=== PATIENT | female | born 1970 | race African-American/Black ===

== ENCOUNTER 2020-12-07 09:46 | Emergency (ER) | payer OTHER ==
--- OUTSIDE RECORDS SUMMARY | 2020-12-07 09:48 | XMS REPORT | Continuity of Care Document ---
:1970 Author Organization [facility] t Address [address] [place] [address] Care Team Providers Name Role Phone Unavailable Unavailable Unavailable Problems This patient has no known problems. Allergies, Adverse Reactions, Alerts This patient has no known allergies or adverse reactions. Medications Ordered Filled Start Stop Current Ordering Indication Dosage Frequency Signature Comments Components Source Medication Medication Date Date Medication? Clinician (SIG) Name Name Trazodone Trazodone 2019-0 Yes Na Cruz [address] [facility] HCl HCl 9-10 at [facility]time [facility] Citalopram Citalopram 2019-0 Yes Na Cruz [address] [facility] Hydrobromid Hydrobromid 8-17 [facility] - [facility] 00[facility]: [facility] Pantoprazol Pantoprazol 2019-0 Yes Na Cruz [address] [facility] e Sodium e Sodium 8-17 [facility] Lisinopril Lisinopril Yes Na Cruz [address] [facility] Omeprazole Omeprazole Yes Na Cruz [address] [facility] 30 minutes [facility] - before [facility] morning [facility] meal [facility] Procedures This patient has no known procedures. Encounters Start End Encounter Admission Attending Care Care Encounter Source Date/Time Date/Time Type Type Clinicians Facility Department ID 2020-07-02 2020-07-02 Outpatient [facility] [id number] [facility] 2020-06-23 2020-06-23 [facility] [id number] [facility] 2020-04-23 2020-04-23 Outpatient Rachelle Acevedo [id number] [facility] 13:40:00 13:40:[address] [facility] [place] [place] [facility] 2020-03-30 2020-03-30 Outpatient Rachelle Aceveod [id number] [facility] 11:20:00 11:20:00 [employer] [facility] Clin[facility] Results This patient has no known results.
[2020-12-07] MEDS ORDERED: MORPHINE 4 MG/ML SYR ONE ×2 (10:19→11:18)
[2020-12-07] MEDS ORDERED: ONDANSETRON 4 MG/2 ML VIAL ONE (10:19)
[2020-12-07] MEDS ORDERED: NA CHLORIDE 0.9% 1,000 ML ONE (10:19)
[2020-12-07] MEDS ORDERED: PANTOPRAZOLE 40 MG INJ ONE (10:19)
[2020-12-07 10:20] LABS: Absolute Lymphocytes (CBC) 0.8 K/uL (0.7-4.9); Basophils % 0.3 % (0-1.3); Hematocrit 39.1 % (36.0-45.0); Lymphocytes % 8.9 % (15.3-44.8); MPV 7.2 fL (7.6-11.3); RBC Red Blood Cell Count 4.71 M/uL (3.86-4.86)
--- NOTE | 2020-12-07 10:37 | RAD REPORT ---
EXAM DESCRIPTION: CTAbdomen Pelvis W Contrast - 12/07/2020 10:27 am CLINICAL HISTORY: Abdominal pain. ABD PAIN COMPARISON: CT ABD PELVIS W CONTRAST dated 12/24/2014 TECHNIQUE: Biphasic CT imaging of the abdomen and pelvis was performed with 100 ml non-ionic IV cont rast. All CT scans are performed using dose optimization technique as appropriate and may include automated exposure control or mA/KV adjustment according to patient size. FINDINGS: The lung bases are clear. The liver, spleen, pancreas, adrenal glands and kidneys are within normal limits. No bowel obstruction, free air, free fluid or abscess. The appendix is not identified as a discrete structure, however, no secondary findings of appendicitis are identified. No evidence of significan t lymphadenopathy. No suspicious bony findings. IMPRESSION: No acute intra-abdominal or pelvic finding.
[2020-12-07 10:38] LABS: Blood Morphology Comment NOT SEEN (NOT SEEN); Platelet Estimate ADEQ
[2020-12-07 10:48] LABS: ALT/SGPT 20 U/L (12-78); AST/SGOT 23 U/L (15-37); Albumin 4.8 g/dL (3.4-5.0); Alkaline Phosphatase 85 U/L (45-117); BUN Blood Urea Nitrogen 16 mg/dL (7-18); Bicarbonate 24 mmol/L (21-32); Bilirubin Direct 0.4 mg/dL (0-0.2); Bilirubin Total 1.8 mg/dL (0.2-1.0); Glucose Level 116 mg/dL (74-106); Lipase 45 U/L (73-393); Potassium 3.1 mmol/L (3.5-5.1); Protein, Total 9.3 g/dL (6.4-8.2); Sodium Level 138 mmol/L (136-145)
[2020-12-07] MEDS ORDERED: PROMETHAZINE INJ 25 MG/ML AMP ONE (11:18)
--- NOTE | 2020-12-07 12:36 | EDPHYS ---
Physician Documentation [facility] Name: Marya Dodson Age: 50 yrs Sex: Female : 1970 Arrival Date: 12/07/2020 Time: 09:47 Bed 20 Private MD: ED Physician Rodo Cornejo HPI: 12/07 10:51 This 50 yrs old Black Female presents to ER via EMS with complaints of Abdominal Pain, gerrad Nausea/Vomiting. 10:51 The patient presents to the emergency department with nausea, vomiting, abdominal pain, gerard of the right lower quadrant and left lower quadrant. Onset: The symptoms/episode began/occurred 2 day(s) ago. Possible causes: flare up of bowel problem. The symptoms are aggravated by nothing. Associated signs and symptoms: The patient has no apparent associated signs or symptoms. Severity of symptoms: At their worst the symptoms were mild moderate in the emergency department the symptoms are unchanged. The patient has experienced similar episodes in the past, multiple times. Historical: - Allergies: 09:51 No Known Allergies; bp - Home Meds: 09:51 Lisinopril Oral [Active]; pantoprazole oral oral [Active]; bp - PMHx: 09:51 Hypertension; GERD; bp - Immunization history:: Adult Immunizations up to date. - Social history:: Smoking status: unknown. ROS: 10:52 Constitutional: Negative for fever, chills, and weight loss, Eyes: Negative for injury, gerard pain, redness, and discharge, ENT: Negative for injury, pain, and discharge, Neck: Negative for injury, pain, and swelling, Cardiovascular: Negative for chest pain, palpitations, and edema, Respiratory: Negative for shortness of breath, cough, wheezing, and pleuritic chest pain, Back: Negative for injury and pain, : Negative for injury, bleeding, discharge, and swelling, MS/Extremity: Negative for injury and deformity, Skin: Negative for injury, rash, and discoloration, Neuro: Negative for headache, weakness, numbness, tingling, and seizure, Psych: Negative for depression, anxiety, suicide ideation, homicidal ideation, and hallucinations, Allergy/Immunology: Negative for hives, rash, and allergies, Endocrine: Negative for neck swelling, polydipsia, polyuria, polyphagia, and marked weight changes, Hematologic/Lymphatic: Negative for swollen nodes, abnormal bleeding, and unusual bruising. 10:52 Abdomen/GI: Positive for abdominal pain, nausea and vomiting, abdominal cramps, abdominal distension, of the right lower quadrant and left lower quadrant. Exam: 10:52 Constitutional: This is a well developed, well nourished patient who is awake, alert, gerard and in no acute distress. Head/Face: Normocephalic, atraumatic. Eyes: Pupils equal round and reactive to light, extra-ocular motions intact. Lids and lashes normal. Conjunctiva and sclera are non-icteric and not injected. Cornea within normal limits. Periorbital areas with no swelling, redness, or edema. ENT: Nares patent. No nasal discharge, no septal abnormalities noted. Tympanic membranes are normal and external auditory canals are clear. Oropharynx with no redness, swelling, or masses, exudates, or evidence of obstruction, uvula midline. Mucous membranes moist. Neck: Trachea midline, no thyromegaly or masses palpated, and no cervical lymphadenopathy. Supple, full range of motion without nuchal rigidity, or vertebral point tenderness. No Meningismus. Chest/axilla: Normal chest wall appearance and motion. Nontender with no deformity. No lesions are appreciated. Cardiovascular: Regular rate and rhythm with a normal S1 and S2. No gallops, murmurs, or rubs. Normal PMI, no JVD. No pulse deficits. Respiratory: Lungs have equal breath sounds bilaterally, clear to auscultation and percussion. No rales, rhonchi or wheezes noted. No increased work of breathing, no retractions or nasal flaring. Back: No spinal tenderness. No costovertebral tenderness. Full range of motion. Female : Normal external genitalia. Skin: Warm, dry with normal turgor. Normal color with no rashes, no lesions, and no evidence of cellulitis. MS/ Extremity: Pulses equal, no cyanosis. Neurovascular intact. Full, normal range of motion. Neuro: Awake and alert, GCS 15, oriented to person, place, time, and situation. Cranial nerves II-XII grossly intact. Motor strength 5/5 in all extremities. Sensory grossly intact. Cerebellar exam normal. Normal gait. 10:52 Abdomen/GI: Inspection: abdomen appears normal, Bowel sounds: normal, Palpation: mild abdominal tenderness, moderate abdominal tenderness, in the right lower quadrant and left lower quadrant, Liver: no appreciated palpable abnormalities, Hernia: not appreciated. Vital Signs: 09:48 BP 161 / 88; Pulse 71; Resp 17; Temp 98; Pulse Ox 100% ; bp 11:00 BP 96 / 72; Pulse 79; Resp 19; Pulse Ox 97% ; bp 12:30 BP 110 / 70; Pulse 72; Resp 16; Temp 98; Pulse Ox 97% ; bp MDM: 09:48 Patient medically screened. gerard 10:55 Differential diagnosis: Nonspecific abd pain, gastritis, cholecystitis, pancreatitis, gerard appendicitis, diverticulitis, viral gastroenteritis, gastroenteritis, appendicitis, bowel obstruction, diverticulitis. Data reviewed: vital signs, nurses notes. Data interpreted: monitor and storage bin tender: rate is 71 beats/min, rhythm is regular, Pulse oximetry: on room air is 100 %. Test interpretation: by ED physician or midlevel provider: plain radiologic studies. Counseling: I had a detailed discussion with the patient and/or guardian regarding: the historical points, exam findings, and any diagnostic results supporting the discharge/admit diagnosis, lab results, radiology results. 12/07 09:52 Order name: Basic Metabolic Panel; Complete Time: 11:46 12/07 09:52 Order name: CBC with Diff; Complete Time: 10:49 12/07 09:52 Order name: Hepatic Function; Complete Time: 11:46 12/07 09:52 Order name: Lipase; Complete Time: 11:46 12/07 10:38 Order name: Manual Differential; Complete Time: 10:49 [facility] 12/07 11:51 Order name: Urine Culture [facility] 12/07 10:02 Order name: CT Abd/Pelvis - IV Contrast Only; Complete Time: 10:38 12/07 12:39 Order name: Urine Dipstick-Ancillary [facility] 12/07 09:52 Order name: IV Saline Lock; Complete Time: 10:15 12/07 09:52 Order name: Labs collected and sent; Complete Time: 10:15 12/07 11:50 Order name: Urine Dipstick-Ancillary (obtain specimen); Complete Time: 12:34 [facility] 12/07 12:03 Order name: Misc. Order: please get ua; Complete Time: 12:34 [facility] Administered Medications: 10:10 Drug: morphine 4 mg Route: IVP; Site: right antecubital; bp 11:05 Follow up: Response: Pain is decreased bp 10:10 Drug: Zofran (Ondansetron) 4 mg Route: IVP; Site: right antecubital; bp 11:05 Follow up: Response: Nausea is decreased bp 10:10 Drug: NS 0.9% 1000 ml Route: IV; Rate: 1 bolus; Site: right antecubital; bp 10:10 Drug: ProTONIX (pantoprazole) 40 mg Route: IVP; Site: right antecubital; bp 11:05 Follow up: Response: No adverse reaction bp 10:50 Drug: morphine 4 mg Route: IVP; Site: right antecubital; bp 11:57 Follow up: Response: Pain is decreased bp 10:50 Drug: Phenergan (promethazine) 12.5 mg Route: IVP; Site: right antecubital; bp 11:57 Follow up: Response: Nausea is decreased bp 10:59 CANCELLED (Duplicate Order): Zofran (Ondansetron) 4 mg IVP once; over 2 minutes gerard 12:05 Drug: Potassium Effervescent Tablet 25 mEq Route: PO; bp 12:34 Follow up: Response: No adverse reaction bp Disposition: 12/07/20 12:36 Discharged to Home. Impression: Abdominal tenderness, Gastritis, unspecified, Vomiting, unspecified, Gastro-esophageal reflux disease, Hypokalemia. - Condition is Stable. - Discharge Instructions: Abdominal Pain, Adult, Potassium Content of Foods, Gastritis, Adult, Gastroesophageal Reflux Disease, Adult, Nausea and Vomiting, Adult, Gastritis, Adult, Arns-jo-Rgrl, Nausea and Vomiting, Adult, Nuan-pe-Pody, Abdominal Pain, Adult, Nlbs-kc-Dxsf, Hypokalemia. - Prescriptions for Bentyl 20 mg Oral Tablet - take 2 tablet by ORAL route every 6 hours As needed; 40 tablet. Protonix 40 mg Oral Tablet, Delayed Release (E.C.) - take 1 tablet by ORAL route every 12 hours; 40 tablet. Zofran 4 mg Oral Tablet - take 1 tablet by ORAL route every 12 hours As needed; 30 tablet. Phenergan 25 mg Rectal Suppository - insert 1 suppository by RECTAL route every 6 hours As needed; 15 suppository. - Medication Reconciliation Form, Thank You Letter, Antibiotic Education, Prescription Opioid Use form. - Follow up: Private Physician; When: 2 - 3 days; Reason: Recheck today's complaints, Continuance of care, Re-evaluation by your physician. Follow up: Cheryl Cruz; When: 2 - 3 days; Reason: Recheck today's complaints, Continuance of care, Re-evaluation by your physician. Follow up: Min Prieto MD; When: 2 - 3 days; Reason: Recheck today's complaints, Continuance of care, Re-evaluation by your physician. - Problem is new. - Symptoms have improved. Signatures: Dispatcher [employer] EDRodo Jacobsen MD MD cha Peltier, Brian RN RN bp Corrections: (The following items were deleted from the chart) 10:59 10:51 Zofran (Ondansetron) 4 mg IVP once; over 2 minutes ordered. gerard gee 12:36 12:36 12/07/2020 12:36 Discharged to Home. Impression: Abdominal tenderness; Gastritis, gerard unspecified; Vomiting, unspecified; Gastro-esophageal reflux disease; Hypokalemia. Condition is Stable. Discharge Instructions: Abdominal Pain, Adult, Gastritis, Adult, Gastroesophageal Reflux Disease, Adult, Nausea and Vomiting, Adult, Gastritis, Adult, Zoeq-ru-Vmzi, Nausea and Vomiting, Adult, Rcxu-ot-Rlnu, Abdominal Pain, Adult, Oyym-ma-Zypi, Potassium Content of Foods, Hypokalemia. Prescriptions for Bentyl 20 mg Oral Tablet - take 2 tablet by ORAL route every 6 hours As needed; 40 tablet, Protonix 40 mg Oral Tablet, Delayed Release (E.C.) - take 1 tablet by ORAL route every 12 hours; 40 tablet, Zofran 4 mg Oral Tablet - take 1 tablet by ORAL route every 12 hours As needed; 30 tablet, Phenergan 25 mg Rectal Suppository - insert 1 suppository by RECTAL route every 6 hours As needed; 15 suppository. and Forms are Medication Reconciliation Form, Thank You Letter, Antibiotic Education, Prescription Opioid Use. Follow up: Private Physician; When: 2 - 3 days; Reason: Recheck today's complaints, Continuance of care, Re-evaluation by your physician. Follow up: Cheryl Cruz; When: 2 - 3 days; Reason: Recheck today's complaints, Continuance of care, Re-evaluation by your physician. Problem is new. Symptoms have improved. gerard 12:45 12:36 12/07/2020 12:36 Discharged to Home. Impression: Abdominal tenderness; Gastritis, bp unspecified; Vomiting, unspecified; Gastro-esophageal reflux disease; Hypokalemia. Condition is Stable. Discharge Instructions: Abdominal Pain, Adult, Gastritis, Adult, Gastroesophageal Reflux Disease, Adult, Nausea and Vomiting, Adult, Gastritis, Adult, Plrn-ow-Tihi, Nausea and Vomiting, Adult, Srod-tx-Sxzp, Abdominal Pain, Adult, Rnqa-gw-Bele, Potassium Content of Foods, Hypokalemia. Prescriptions for Bentyl 20 mg Oral Tablet - take 2 tablet by ORAL route every 6 hours As needed; 40 tablet, Protonix 40 mg Oral Tablet, Delayed Release (E.C.) - take 1 tablet by ORAL route every 12 hours; 40 tablet, Zofran 4 mg Oral Tablet - take 1 tablet by ORAL route every 12 hours As needed; 30 tablet, Phenergan 25 mg Rectal Suppository - insert 1 suppository by RECTAL route every 6 hours As needed; 15 suppository. and Forms are Medication Reconciliation Form, Thank You Letter, Antibiotic Education, Prescription Opioid Use. Follow up: Private Physician; When: 2 - 3 days; Reason: Recheck today's complaints, Continuance of care, Re-evaluation by your physician. Follow up: Cheryl Cruz; When: 2 - 3 days; Reason: Recheck today's complaints, Continuance of care, Re-evaluation by your physician. Follow up: Min Prieto; When: 2 - 3 days; Reason: Recheck today's complaints, Continuance of care, Re-evaluation by your physician. Problem is new. Symptoms have improved. gerard
--- NOTE | 2020-12-07 12:36 | ER ---
Nurse's Notes [facility] Name: Marya Dodson Age: 50 yrs Sex: Female : 1970 Arrival Date: 12/07/2020 Time: 09:47 Bed 20 Private MD: Diagnosis: Abdominal tenderness;Gastritis, unspecified;Vomiting, unspecified;Gastro-esophageal reflux disease;Hypokalemia Presentation: 12/07 09:48 Chief complaint: EMS states: ABDOMINAL PAIN WITH N/V SINCE LAST PM. Coronavirus screen: bp At this time, the client does not indicate any symptoms associated with coronavirus-19. Ebola Screen: No symptoms or risks identified at this time. Initial Sepsis Screen: Does the patient meet any 2 criteria? No. Patient's initial sepsis screen is negative. Does the patient have a suspected source of infection? No. Patient's initial sepsis screen is negative. Risk Assessment: Do you want to hurt yourself or someone else? Patient reports no desire to harm self or others. Onset of symptoms is unknown. 09:48 Method Of Arrival: EMS: [facility] bp 09:48 Acuity: FELI 3 bp Triage Assessment: 09:48 General: Appears distressed, uncomfortable, Behavior is cooperative, appropriate for bp age, anxious. Pain: Complains of pain in abdomen. EENT: No deficits noted. Neuro: No deficits noted. Cardiovascular: No deficits noted. Respiratory: No deficits noted. GI: Abdomen is non-distended, obese, Reports lower abdominal pain, cramping. : No signs and/or symptoms were reported regarding the genitourinary system. Derm: No deficits noted. Musculoskeletal: No deficits noted. Historical: - Allergies: 09:51 No Known Allergies; bp - Home Meds: 09:51 Lisinopril Oral [Active]; pantoprazole oral oral [Active]; bp - PMHx: 09:51 Hypertension; GERD; bp - Immunization history:: Adult Immunizations up to date. - Social history:: Smoking status: unknown. Screenin:00 Abuse screen: Denies threats or abuse. Denies injuries from another. Nutritional bp screening: No deficits noted. Tuberculosis screening: No symptoms or risk factors identified. Fall Risk None identified. Assessment: 10:00 General: SEE TRIAGE NOTE. bp 11:00 Reassessment: No changes from previously documented assessment. Patient and/or family bp updated on plan of care and expected duration. Pain level reassessed. PT RETURNED FROM CT. ALL CURRENT RESULTS UNREMARKABLE. 12:44 Reassessment: PT D/C HOME VIA W/C WITH FAMILY, DX WITH GASTRITIS AND GERD. bp Vital Signs: 09:48 BP 161 / 88; Pulse 71; Resp 17; Temp 98; Pulse Ox 100% ; bp 11:00 BP 96 / 72; Pulse 79; Resp 19; Pulse Ox 97% ; bp 12:30 BP 110 / 70; Pulse 72; Resp 16; Temp 98; Pulse Ox 97% ; bp ED Course: 09:47 Patient arrived in ED. bp 09:48 Rodo Cornejo MD is Attending Physician. gerard 09:48 Triage completed. bp 09:51 Splint/sling/ice applied as appropriate. Arm band placed on Patient notified of wait bp time. 09:57 Patient has correct armband on for positive identification. Bed in low position. Call mh5 light in reach. Side rails up X2. Adult w/ patient. Pulse ox on. NIBP on. 09:58 Warm blanket given. mh5 10:01 Kayden Mondragon, RN is Primary Nurse. bp 10:01 PATIENT REFUSED IV ANYWHERE SHE WANTS IT ON HER HAND. mh5 10:10 Inserted saline lock: 20 gauge in right antecubital area, using aseptic technique. bp Blood collected. 10:27 CT Abd/Pelvis - IV Contrast Only In Process Unspecified. EDMS 12:36 Cheryl Cruz MD is Referral Physician. gerard 12:36 Min Prieto MD is Referral Physician. [facility] 12:45 No provider procedures requiring assistance completed. IV discontinued, intact, bp bleeding controlled, No redness/swelling at site. Pressure dressing applied. Administered Medications: 10:10 Drug: morphine 4 mg Route: IVP; Site: right antecubital; bp 11:05 Follow up: Response: Pain is decreased bp 10:10 Drug: Zofran (Ondansetron) 4 mg Route: IVP; Site: right antecubital; bp 11:05 Follow up: Response: Nausea is decreased bp 10:10 Drug: NS 0.9% 1000 ml Route: IV; Rate: 1 bolus; Site: right antecubital; bp 10:10 Drug: ProTONIX (pantoprazole) 40 mg Route: IVP; Site: right antecubital; bp 11:05 Follow up: Response: No adverse reaction bp 10:50 Drug: morphine 4 mg Route: IVP; Site: right antecubital; bp 11:57 Follow up: Response: Pain is decreased bp 10:50 Drug: Phenergan (promethazine) 12.5 mg Route: IVP; Site: right antecubital; bp 11:57 Follow up: Response: Nausea is decreased bp 10:59 CANCELLED (Duplicate Order): Zofran (Ondansetron) 4 mg IVP once; over 2 minutes gerard 12:05 Drug: Potassium Effervescent Tablet 25 mEq Route: PO; bp 12:34 Follow up: Response: No adverse reaction bp Outcome: 12:36 Discharge ordered by MD. gee 12:45 Discharged to home via wheelchair, with family. bp 12:45 Condition: stable 12:45 Discharge instructions given to patient, Instructed on discharge instructions, follow up and referral plans. medication usage, Demonstrated understanding of instructions, follow-up care, medications, Prescriptions given X 4. 12:45 Patient left the ED. bp Signatures: Dispatcher [employer] EDRodo Jacobsen MD MD cha Martinez, Maria [facility] Kayden Mondragon, RN RN bp
[2020-12-07 12:39] LABS: Urine Blood 2+ (Negative); Urine Glucose Negative (Negative); Urine Protein 2+ (Negative)
[2020-12-07] MEDS ORDERED: POTASSIUM 25 MEQ EFFERV TAB ONE (12:42)
[2020-12-07 12:53] VITALS: TEMP 98
[2020-12-07 12:54] VITALS: O2SAT 97
[2020-12-07 12:56] VITALS: BP 110/70
== END 2020-12-07 12:45 | disposition home or self-care (01) ==
LOC: ER 09:46
DX: K29.70 Gastritis, unspecified, without bleeding (principal); K21.9 Gastro-esophageal reflux disease without esophagitis; E87.6 Hypokalemia; R11.10 Vomiting, unspecified; I10 Essential (primary) hypertension
CPT/HCPCS: 87088; 85025; 87086; 80048; 36415; 82565; 80076; 81003; 83690; 74177; 96375; 96374; 99284; Q9967; J2550; C9113; J7030; J2405

== ENCOUNTER 2021-03-27 15:57 | Emergency (ER) | payer OTHER ==
--- OUTSIDE RECORDS SUMMARY | 2021-03-27 15:59 | XMS REPORT | Continuity of Care Document ---
:1970 Author Organization [facility] t Address [address] [place] [address] Care Team Providers Name Role Phone Unavailable Unavailable Unavailable Problems This patient has no known problems. Allergies, Adverse Reactions, Alerts This patient has no known allergies or adverse reactions. Medications Ordered Filled Start Stop Current Ordering Indication Dosage Frequency Signature Comments Components Source Medication Medication Date Date Medication? Clinician (SIG) Name Name Trazodone Trazodone 2020-0 Yes Na Cruz [address] [facility] HCl HCl 9-10 at [facility]time [facility] Citalopram Citalopram 2020-0 Yes Na Cruz [address] [facility] Hydrobromid Hydrobromid 8-17 [facility] - e e 00:00: [facility] Pantoprazol Pantoprazol 2020-0 Yes Na Cruz [address] [facility] e Sodium e Sodium 8-17 [facility] Lisinopril Lisinopril Yes Na Cruz [address] [facility] Omeprazole Omeprazole Yes Na Cruz [address] [facility] 30 minutes [facility] morning [facility] meal [facility] Procedures This patient has no known procedures. Encounters Start End Encounter Admission Attending Care Care Encounter Source Date/Time Date/Time Type Type Clinicians Facility Department ID 2020-12-16 2020-12-16 Outpatient [facility] [id number] [facility] 2020-12-11 2020-12-11 [facility] [id number] [facility] 2020-07-02 2020-07-02 Out[facility] [id number] [facility] 2020-06-23 2020-06-[address] [id number] 2020-04-23 2020-04-23 [facility] [id number] 13:40:00 13:40:00 [facility] 2020-03-30 2020-03-30 [facility] [id number] 11:20:00 11:20:00 [facility] Results This patient has no known results.
[2021-03-27 17:05] LABS: Absolute Lymphocytes (CBC) 0.9 K/uL (0.7-4.9); Basophils % 0.3 % (0-1.3); Hematocrit 35.9 % (36.0-45.0); Lymphocytes % 8.9 % (15.3-44.8); MPV 7.2 fL (7.6-11.3); RBC Red Blood Cell Count 4.26 M/uL (3.86-4.86)
[2021-03-27] MEDS ORDERED: ONDANSETRON 4 MG/2 ML VIAL ONE (17:07)
[2021-03-27] MEDS ORDERED: MORPHINE 4 MG/ML SYR ONE (17:07)
[2021-03-27] MEDS ORDERED: NA CHLORIDE 0.9% 1,000 ML ONE (17:07)
[2021-03-27 17:43] LABS: ALT/SGPT 17 U/L (12-78); AST/SGOT 22 U/L (15-37); Albumin 4.2 g/dL (3.4-5.0); Alkaline Phosphatase 73 U/L (45-117); BUN Blood Urea Nitrogen 9 mg/dL (7-18); Bicarbonate 23 mmol/L (21-32); Bilirubin Direct 0.2 mg/dL (0-0.2); Bilirubin Total 0.8 mg/dL (0.2-1.0); Glucose Level 119 mg/dL (74-106); Lipase 26 U/L (73-393); Protein, Total 7.7 g/dL (6.4-8.2); Sodium Level 142 mmol/L (136-145)
[2021-03-27 17:43] LABS: Urine Blood 1+ (Negative); Urine Glucose Negative (Negative); Urine Protein 1+ (Negative); Urine pH 8.5 (5.0-7.0)
[2021-03-27 18:17] LABS: Blood Morphology Comment NOT SEEN (NOT SEEN); Platelet Estimate ADEQ; White Blood Cell Scan OK (OK)
[2021-03-27] MEDS ORDERED: FENTANYL CITR 100 MCG/2 ML ONE (18:29)
--- NOTE | 2021-03-27 18:37 | RAD REPORT ---
EXAM DESCRIPTION: CT - Abdomen Pelvis W Contrast - 03/27/2021 6:18 pm CLINICAL HISTORY: ABD PAIN, epigastric pain with a history of GERD COMPARISON: Abdomen Pelvis W Contrast dated 12/07/2020 TECHNIQUE: Biphasic, helical CT imaging of the abdomen and pelvis was performed following 100 ml non -ionic IV contrast. No oral contrast was administered. All CT scans are performed using dose optimization technique as appropriate and may include automated exposure control or mA/KV adjustment according to patient size. FINDINGS: No acute lung base pleural or parenchymal process. No pericardial effusion. The liver, spleen, and pancreas show no suspicious findings. Gallbladder and biliary tree are also wi thout suspicious finding. Symmetric renal function is seen with no hydronephrosis or suspicious renal mass. No pyelonephritis o r acute parenchymal process. Urinary bladder is mostly contracted. No bladder stone or gross bladder abnormality seen. Uterus is not identified and presumed surgically absent. Ovaries may be surgically absent or obscured by adjacent on opacified bowel. No [employer] active process suspected. No adrenal abnorm alities. Patient has an elevated left hemidiaphragm with most of the stomach positioned within this elevated p ortion of the abdominal contents. This distorts the contour the stomach. No gross gastric abnormality seen. Antritis is not excluded. The gastric mass is not identifiable. No duodenal abnormality. Remai nder of the small bowel without acute finding. Colon is decompressed. No appendicitis findings identi fiable. An acute colon process is not seen. Numerous phleboliths are seen on the or the pelvis. No fr ee air, free fluid or inflammatory stranding. No hernia, mass or bulky lymphadenopathy. No suspicious bony findings. IMPRESSION: Contrast enhanced CT abdomen and pelvis showing no acute or emergent finding. Mild gastritis or duodenitis cannot be excluded solely on the basis of the examination.
--- NOTE | 2021-03-27 18:55 | EDPHYS ---
Physician Documentation [facility] Name: Marya Dodson Age: 50 yrs Sex: Female : 1970 Arrival Date: 03/27/2021 Time: 16:19 Bed Treatment Private MD: ED Physician Christian Mann HPI: 03/27 16:58 This 50 yrs old Black Female presents to ER via EMS with complaints of ab pain. tw4 16:58 The patient presents with abdominal pain. Onset: The symptoms/episode began/occurred 2 tw4 day(s) ago. The symptoms do not radiate. Associated signs and symptoms: Pertinent positives: nausea, vomiting, and diarrhea, nausea and vomiting, nausea, vomiting, Pertinent negatives: anorexia, blood in stools, chest pain, constipation, diarrhea, dysuria, fever, palpitations, shortness of breath, vaginal discharge, vomiting blood. The symptoms are described as sharp. Modifying factors: The symptoms are alleviated by nothing, the symptoms are aggravated by movement, pressure. Severity of pain: At its worst the pain was severe in the emergency department the pain is unchanged. The patient has experienced similar episodes in the past, a few times. Historical: - Allergies: 16:29 No Known Allergies; ss - PMHx: 16:29 GERD; Hypertension; ss - Immunization history:: Adult Immunizations up to date, Client reports receiving the 2nd dose of the Covid vaccine. - Social history:: Smoking status: Patient denies any tobacco usage or history of. ROS: 16:58 Constitutional: Negative for fever, chills, and weight loss, Eyes: Negative for injury, tw4 pain, redness, and discharge, Cardiovascular: Negative for chest pain, palpitations, and edema, Respiratory: Negative for shortness of breath, cough, wheezing, and pleuritic chest pain, Back: Negative for injury and pain. 16:58 MS/Extremity: Negative for injury and deformity, Skin: Negative for injury, rash, and discoloration, Neuro: Negative for headache, weakness, numbness, tingling, and seizure. 16:58 Abdomen/GI: Positive for abdominal pain, Negative for nausea and vomiting, nausea, vomiting, and diarrhea, nausea, abdominal cramps, abdominal distension, anorexia, dysphagia, hematemesis, black/tarry stool, rectal pain. Exam: 17:06 Head/Face: Normocephalic, atraumatic. Eyes: Pupils equal round and reactive to light, tw4 extra-ocular motions intact. Lids and lashes normal. Conjunctiva and sclera are non-icteric and not injected. Cornea within normal limits. Periorbital areas with no swelling, redness, or edema. ENT: Nares patent. No nasal discharge, no septal abnormalities noted. Tympanic membranes are normal and external auditory canals are clear. Oropharynx with no redness, swelling, or masses, exudates, or evidence of obstruction, uvula midline. Mucous membranes moist. Chest/axilla: Normal chest wall appearance and motion. Nontender with no deformity. No lesions are appreciated. Cardiovascular: Regular rate and rhythm with a normal S1 and S2. No gallops, murmurs, or rubs. Normal PMI, no JVD. No pulse deficits. Respiratory: Lungs have equal breath sounds bilaterally, clear to auscultation and percussion. No rales, rhonchi or wheezes noted. No increased work of breathing, no retractions or nasal flaring. 17:06 Constitutional: The patient appears alert, awake, anxious, in obvious distress, moderately distressed, in obvious pain, restless, uncomfortable. 17:06 Abdomen/GI: Inspection: abdomen appears normal, Bowel sounds: diminished, Palpation: severe abdominal tenderness, in all quadrants, voluntary guarding, is elicited in all quadrants. Vital Signs: 16:29 Resp 23; Weight 63.5 kg; Height 5 ft. 6 in. (167.64 cm); Pain 10/10; ss 16:35 BP 160 / 62; Pulse 62; Resp 24; Pulse Ox 96% on R/A; dh4 16:49 Temp 97.6(TE); ss 16:29 Body Mass Index 22.60 (63.50 kg, 167.64 cm) ss MDM: 16:29 Patient medically screened. tw4 16:58 Data reviewed: vital signs, nurses notes. Counseling: I had a detailed discussion with [facility] the patient and/or guardian regarding: the historical points, exam findings, and any diagnostic results supporting the discharge/admit diagnosis. 03/27 16:25 Order name: Basic Metabolic Panel [facility] 03/27 16:25 Order name: CBC with Diff; Complete Time: 18:46 [facility] 03/27 17:19 Interpretation: Normal except: HCT 35.9; LYM% 8.9; TANYA% 86.1; MPV 7.2; NEUT A 8.6. [facility] 03/27 16:25 Order name: Hepatic Function [facility] 03/27 16:25 Order name: Lipase; Complete Time: 18:46 [facility] 03/27 16:25 Order name: Basic Metabolic Panel; Complete Time: 18:46 EDMS 03/27 18:48 Interpretation: Normal except: K 3.0; CL 111; GLUC 119; CRE 0.47. [facility] 03/27 16:25 Order name: CT Abd/Pelvis - IV Contrast Only; Complete Time: 18:46 [facility] 03/27 16:25 Order name: Liver (Hepatic) Function; Complete Time: 18:46 EDMS 03/27 18:47 Interpretation: Within normal limits. [facility] 03/27 16:46 Order name: Test, Serum; Complete Time: 18:46 03/27 18:47 Interpretation: Within normal limits: PREGS <p>NEG</p>. [facility] 03/27 17:08 Order name: CBC Smear Scan; Complete Time: 18:46 EDMS 03/27 18:48 Interpretation: Within normal limits. [facility] 03/27 17:43 Order name: Urine Dipstick-Ancillary; Complete Time: 18:47 EDSD 03/27 18:47 Interpretation: Normal except: UBLD 1+; UKET 1+; UPH 8.5. [facility] 03/27 17:59 Order name: Urine --Ancillary (enter results) 03/27 16:25 Order name: IV Saline Lock; Complete Time: 16:49 [facility] 03/27 16:25 Order name: Labs collected and sent; Complete Time: 16:49 [facility] 03/27 16:25 Order name: Urine Dipstick-Ancillary (obtain specimen); Complete Time: 17:50 [facility] 03/27 16:25 Order name: Urine Test (obtain specimen); Complete Time: 17:50 4 Administered Medications: 16:49 Drug: morphine 4 mg Route: IVP; Site: left antecubital; ss 17:50 Follow up: Response: No adverse reaction; Pain is decreased ss 16:49 Drug: Zofran (Ondansetron) 4 mg Route: IVP; Site: left antecubital; ss 17:50 Follow up: Response: No adverse reaction; Nausea is decreased ss 16:49 Drug: NS 0.9% 1000 ml Route: IV; Rate: 1 bolus; Site: left antecubital; ss 18:08 Drug: fentaNYL (PF) 100 mcg Route: IVP; Site: left antecubital; ss 19:03 Follow up: Response: No adverse reaction; Marked relief of symptoms ss 18:55 Drug: ProTONIX (pantoprazole) 40 mg Route: IVP; Site: left antecubital; ss 19:30 Follow up: Response: No adverse reaction ss 19:03 Drug: GI Cocktail without - (Maalox Suspension 30 ml, Lidocaine Liquid 2 % 15 ss ml) Route: PO; 19:30 Follow up: Response: No adverse reaction; Marked relief of symptoms; Pain is decreased ss 19:03 Drug: Potassium Effervescent Tablet 50 mEq Route: PO; ss 19:33 Follow up: Response: No adverse reaction ss Disposition Summary: 03/27/21 18:54 Discharge Ordered Location: Home tw4 Problem: new tw4 Symptoms: have improved tw4 Condition: Stable tw4 Diagnosis - Acute gastritis without bleeding tw4 - Abdominal tenderness, unspecified site tw4 - Epigastric abdominal tenderness tw4 - Vomiting tw4 - Hypokalemia tw4 Followup: tw4 - With: Private Physician - When: Upon discharge from the Emergency Department - Reason: Recheck today's complaints, Continuance of care, Re-evaluation by your physician Followup: tw4 - With: Eileen Ray MD - When: Upon discharge from the Emergency Department - Reason: Recheck today's complaints, Continuance of care, Re-evaluation by your physician Followup: tw4 - With: Min Prieto MD - When: Upon discharge from the Emergency Department - Reason: Recheck today's complaints, Continuance of care, Re-evaluation by your physician Followup: tw4 - With: Aric Boyce MD - When: Upon discharge from the Emergency Department - Reason: Recheck today's complaints, Continuance of care, Re-evaluation by your physician Discharge Instructions: - Discharge Summary Sheet tw4 - Abdominal Pain, Adult tw4 - Potassium Content of Foods tw4 - Gastritis, Adult tw4 - Peptic Ulcer, [id number] tw4 - Hypokalemia tw4 - Peptic Ulcer Eating Plan tw4 Forms: - Medication Reconciliation Form tw4 - Thank You Letter tw4 - Antibiotic Education tw4 - Prescription Opioid Use tw4 Prescriptions: - Protonix 40 mg Oral Tablet - take 1 tablet by ORAL route once daily; 30 tablet; Refills: 0, Product tw4 Selection Permitted - Zofran 4 mg Oral Tablet - take 1 tablet by ORAL route every 12 hours As needed; 20 tablet; Refills: 0, tw4 Product Selection Permitted Signatures: Dispatcher [employer] EDSD Sarah Aguirre RN RN ss Wadley, Terrence, MD MD tw4 Corrections: (The following items were deleted from the chart) 17:18 16:58 Constitutional: This is a well developed, well nourished patient who is awake, tw4 alert, and in no acute distress. Head/Face: Normocephalic, atraumatic. Chest/axilla: Normal chest wall appearance and motion. Nontender with no deformity. No lesions are appreciated. Cardiovascular: Regular rate and rhythm with a normal S1 and S2. No gallops, murmurs, or rubs. Normal PMI, no JVD. No pulse deficits. Respiratory: Lungs have equal breath sounds bilaterally, clear to auscultation and percussion. No rales, rhonchi or wheezes noted. No increased work of breathing, no retractions or nasal flaring. Abdomen/GI: Soft, non-tender, with normal bowel sounds. No distension or tympany. No guarding or rebound. No evidence of tenderness throughout. Skin: Warm, dry with normal turgor. Normal color with no rashes, no lesions, and no evidence of cellulitis. MS/ Extremity: Pulses equal, no cyanosis. Neurovascular intact. Full, normal range of motion. Neuro: Awake and alert, GCS 15, oriented to person, place, time, and situation. Cranial nerves II-XII grossly intact. Motor strength 5/5 in all extremities. Sensory grossly intact. Cerebellar exam normal. Normal gait. tw4 17:24 16:25 QUANTITATIVE HCG+C.LAB.BRZ ordered. EDMS EDMS
--- NOTE | 2021-03-27 18:55 | ER ---
Nurse's Notes [facility] Name: Marya Dodson Age: 50 yrs Sex: Female : 1970 Arrival Date: 03/27/2021 Time: 16:19 Bed Treatment Private MD: Diagnosis: Acute gastritis without bleeding;Abdominal tenderness, unspecified site;Epigastric abdominal tenderness;Vomiting;Hypokalemia Presentation: 03/27 16:27 Chief complaint: EMS states: epigastric pain that has been ongoing x 2 days. HX of ss GERD. Pt has been seen in ER before for similar complaints. Coronavirus screen: Client denies travel out of the [place] in the last 14 days. Ebola Screen: Patient denies exposure to infectious person. Patient denies travel to an Ebola-affected area in the 21 days before illness onset. Initial Sepsis Screen: Does the patient meet any 2 criteria? No. Patient's initial sepsis screen is negative. Does the patient have a suspected source of infection? No. Patient's initial sepsis screen is negative. Risk Assessment: Do you want to hurt yourself or someone else? Patient reports no desire to harm self or others. Onset of symptoms was March 25, 2021. 16:27 Method Of Arrival: EMS: [facility] ss 16:27 Acuity: FELI 3 ss Historical: - Allergies: 16:29 No Known Allergies; ss - PMHx: 16:29 GERD; Hypertension; ss - Immunization history:: Adult Immunizations up to date, Client reports receiving the 2nd dose of the Covid vaccine. - Social history:: Smoking status: Patient denies any tobacco usage or history of. Screenin:29 Abuse screen: Denies threats or abuse. Denies injuries from another. Nutritional ss screening: No deficits noted. Tuberculosis screening: Never had TB. Fall Risk None identified. Assessment: 16:20 General: Appears distressed, uncomfortable, Behavior is crying, hollering. Pain: Pain ss currently is 10 out of 10 on a pain scale. Quality of pain is described as "Like some one is hitting me with a sledgehammer over and over!" Is intermittent. Neuro: Level of Consciousness is awake, alert, obeys commands, Oriented to person, place, time, situation. Cardiovascular: Capillary refill < 3 seconds is brisk in bilateral fingers Patient's skin is warm and dry. Respiratory: Airway is patent Trachea midline Respiratory effort is even, unlabored, Respiratory pattern is regular, symmetrical. GI: Abdomen is non-distended, Bowel sounds present X 4 quads. Abd is non tender in epigastric area, right upper quadrant and left upper quadrant Reports nausea. : Denies burning with urination, urinary frequency. EENT: Nares are clear Throat is clear. Derm: Skin is intact, is healthy with good turgor, Skin is dry, Skin is pink, warm \\T\\ dry. normal. Musculoskeletal: Circulation, motion, and sensation intact. Range of motion: intact in all extremities, Swelling absent. 18:08 Reassessment: Pt to CT now VIA wheelchair. ss Vital Signs: 16:29 Resp 23; Weight 63.5 kg; Height 5 ft. 6 in. (167.64 cm); Pain 10/10; ss 16:35 BP 160 / 62; Pulse 62; Resp 24; Pulse Ox 96% on R/A; dh4 16:49 Temp 97.6(TE); ss 16:29 Body Mass Index 22.60 (63.50 kg, 167.64 cm) ED Course: 16:19 Patient arrived in ED. ss 16:28 Triage completed. ss 16:29 Christian Mann MD is Attending Physician. tw4 16:29 Arm band placed on right wrist. ss 16:41 Sarah Aguirre, VALARIE is Primary Nurse. ss 16:41 Inserted saline lock: 22 gauge in left antecubital area, using aseptic technique. Blood ss collected. 18:18 CT Abd/Pelvis - IV Contrast Only In Process Unspecified. EDMS 18:55 Eileen Ray MD is Referral Physician. tw4 18:55 Min Prieto MD is Referral Physician. tw4 18:55 Aric Boyce MD is Referral Physician. tw4 19:18 No provider procedures requiring assistance completed. IV discontinued, intact, ss bleeding controlled, No redness/swelling at site. Pressure dressing applied. 19:27 Primary Nurse role handed off by Sarah Aguirre, RN mw2 19:29 Patient has correct armband on for positive identification. Bed in low position. Call ss light in reach. Side rails up X 1. Administered Medications: 16:49 Drug: morphine 4 mg Route: IVP; Site: left antecubital; ss 17:50 Follow up: Response: No adverse reaction; Pain is decreased ss 16:49 Drug: Zofran (Ondansetron) 4 mg Route: IVP; Site: left antecubital; ss 17:50 Follow up: Response: No adverse reaction; Nausea is decreased ss 16:49 Drug: NS 0.9% 1000 ml Route: IV; Rate: 1 bolus; Site: left antecubital; ss 18:08 Drug: fentaNYL (PF) 100 mcg Route: IVP; Site: left antecubital; ss 19:03 Follow up: Response: No adverse reaction; Marked relief of symptoms ss 18:55 Drug: ProTONIX (pantoprazole) 40 mg Route: IVP; Site: left antecubital; ss 19:30 Follow up: Response: No adverse reaction ss 19:03 Drug: GI Cocktail without - (Maalox Suspension 30 ml, Lidocaine Liquid 2 % 15 ss ml) Route: PO; 19:30 Follow up: Response: No adverse reaction; Marked relief of symptoms; Pain is decreased ss 19:03 Drug: Potassium Effervescent Tablet 50 mEq Route: PO; ss 19:33 Follow up: Response: No adverse reaction ss Outcome: 18:54 Discharge ordered by MD. soto 19:18 Discharged to home ambulatory, with family. ss 19:18 Condition: good 19:18 Discharge instructions given to patient, family, Instructed on discharge instructions, follow up and referral plans. medication usage, Demonstrated understanding of instructions, follow-up care, medications, Prescriptions given X 2. 19:29 Patient left the ED. ss Signatures: Dispatcher [employer] Sarah Barboza RN RN ss Wadley, Terrence, MD MD tw4 [facility] Alvarado2 Laz[facility] Callow[facility]
[2021-03-27] MEDS ORDERED: LIDOCAINE VISCOUS 2% SOLN 15 ML UDC ONE (19:14)
[2021-03-27] MEDS ORDERED: PANTOPRAZOLE 40 MG INJ ONE (19:14)
[2021-03-27] MEDS ORDERED: POTASSIUM 25 MEQ EFFERV TAB ONE (19:14)
[2021-03-27] MEDS ORDERED: MAGNES/ALUMIN/SIMET 30ML UCUP ONE (19:15)
[2021-03-27 19:40] VITALS: BP 160/62; O2SAT 96
[2021-03-27 19:43] VITALS: TEMP 97.6
== END 2021-03-27 19:29 | disposition home or self-care (01) ==
LOC: ER 15:57
DX: K29.00 Acute gastritis without bleeding (principal); E87.6 Hypokalemia; R11.10 Vomiting, unspecified; I10 Essential (primary) hypertension
CPT/HCPCS: 85025; 80048; 36415; 84703; 81025; 80076; 81003; 83690; 74177; 96375; 96374; 99284; Q9967; C9113; J3010; J7030; J2405

== ENCOUNTER 2021-10-07 08:37 | Emergency (ER) | payer OTHER, SELFPAY ==
--- OUTSIDE RECORDS SUMMARY | 2021-10-07 08:40 | XMS REPORT | Continuity of Care Document ---
:1970 Author Organization [facility] t Address [address] [place] [address] Care Team Providers Name Role Phone Ciarra Cruz Attending Clinician Unavailable Problems This patient has no known [...] [facility] Citalopram Citalopram 2019-0 Yes Na Cruz [address] [facility] Hydrobromid Hydrobromid 8-17 [facility] - e e 00:[facility] Pantoprazol Pantoprazol 2020-0 Yes Na Cruz [address] [facility] e Sodium e Sodium 8-17 [facility] Lisinopril Lisinopril Yes Na Cruz [address] [facility] Omeprazole Omeprazole Yes Na Cruz [address] [facility] 30 minutes [facility] - before [facility] Procedures This patient has no known procedures. Encounters Start End Encounter Admission Attending Care Care Encounter Source Date/Time Date/Time Type Type Clinicians Facility Department ID 2021-09-08 Outpatient Cruz, Na STLMLC STL[facility]C [id number] [facility] 12:59:19 [id number] [facility] 2021-09-08 Outpatient Anthony, Na STLMLC STLMLC [id number] [facility] [address] 12:58:09 [id number] [facility] 2021-09-08 Outpatient Anthony, Na STLMLC STLMLC [id number] [facility] 12:03:16 [id number] [facility] 2021-09-08 Outpatient Cruz, Na STLMLC STLMLC [id number] [facility] 12:02:58 [id number] [facility] 2021-09-08 Outpatient Anthony, Na STLMLC STLMLC [id number] [facility] 11:44:03 [id number] [facility] 2021-09-08 Outpatient Anthony, Na STLMLC STLMLC [id number] [facility] 11:39:57 [id number] [facility] 2021-09-08 Outpatient Anthony, Na STLMLC STLMLC [id number] [facility] [address] 11:38:14 [id number] [facility] 2021-05-19 2021-05-19 Outpatient [facility] [id number] [facility] 2020-12-16 2020-12-16 Outpatient [facility] [id number] [facility] 2020-12-11 2020-12-11 Outpatient [facility] [id number] [facility] 2020-07-02 2020-07-02 Outpatient [facility] [id number] [facility] 2020-06-23 2020-06-23 Outpatient [facility] [id number] [facility] 2020-04-23 2020-04-23 [facility] [id number] [facility] 13:40:00 13:40:00 [employer] [facility] 2020-03-30 2020-03-30 Outpatient Rachelle Acevedo [id number] [facility] [address] 11:20:00 11:20:00 t [employer] [facility] Results This patient has no known results.
[2021-10-07] MEDS ORDERED: METOCLOPRAMIDE 10 MG/2mL INJ ONE (08:48)
[2021-10-07] MEDS ORDERED: DIPHENHYDRAMINE 50 MG/ML VIAL ONE (08:50)
[2021-10-07] MEDS ORDERED: LORazepam 2 MG/ML VIAL ONE (08:50)
[2021-10-07] MEDS ORDERED: NA CHLORIDE 0.9% 1,000 ML ONE (08:51)
[2021-10-07] MEDS ORDERED: NA CHLORIDE 0.9% 250 ML ONE (08:53)
[2021-10-07 09:01] LABS: Absolute Lymphocytes (CBC) 2.1 K/uL (0.7-4.9); Hematocrit 35.8 % (36.0-45.0); Lymphocytes % 39.8 % (15.3-44.8); MPV 6.8 fL (7.6-11.3); RBC Red Blood Cell Count 4.18 M/uL (3.86-4.86)
[2021-10-07 09:17] LABS: ALT/SGPT 17 U/L (12-78); AST/SGOT 20 U/L (15-37); Alkaline Phosphatase 75 U/L (45-117); BUN Blood Urea Nitrogen 10 mg/dL (7-18); Bicarbonate 26 mmol/L (21-32); Bilirubin Direct 0.1 mg/dL (0-0.2); Bilirubin Total 0.6 mg/dL (0.2-1.0); Glucose Level 185 mg/dL (74-106); Lipase 38 U/L (73-393); Potassium 3.1 mmol/L (3.5-5.1); Protein, Total 7.8 g/dL (6.4-8.2); Sodium Level 141 mmol/L (136-145)
--- NOTE | 2021-10-07 09:59 | RAD REPORT ---
EXAM DESCRIPTION: CT - Abdomen Pelvis W Contrast - 10/07/2021 9:39 am CLINICAL HISTORY: ABD PAIN, recent endoscopic procedure COMPARISON: Abdomen Pelvis W Contrast dated 03/27/2021 TECHNIQUE: Biphasic, helical CT imaging of the abdomen and pelvis was performed following 100 ml non -ionic IV contrast. No oral contrast administered. All CT scans are performed using dose optimization technique as appropriate and may include automated exposure control or mA/KV adjustment according to patient size. FINDINGS: No suspicious findings in the lung bases. No focal liver lesion identified. No portal vein abnormality seen. No CT findings for pancreatitis or acute pancreatic process. No splenomegaly or focal splenic finding. Gallbladder and biliary tree are also without suspicious finding. Symmetric renal function is seen with no hydronephrosis or suspicious renal mass. No pyelonephritis o r acute parenchymal process. No bladder abnormalities. No adrenal abnormalities. Uterus is absent. Ov barrie are absent, atrophic or obscured by adjacent isodense bowel. No gastric dilatation or gastric wall thickening seen. Stomach is decompressed which limits assessmen t. No small bowel abnormality seen. Colon is mostly decompressed with only minimal amounts of stool p resent. No primary colon process identified. Appendix is unremarkable. No intraperitoneal free air. No pneumatosis or inflammatory stranding. No hernia, mass or bulky lymp hadenopathy. No suspicious bony findings. IMPRESSION: Contrast enhanced CT abdomen and pelvis showing no acute or emergent finding.
--- NOTE | 2021-10-07 10:58 | EDPHYS ---
Physician Documentation [facility] Name: Marya Dodson Age: 51 yrs Sex: Female : 1970 Arrival Date: 10/07/2021 Time: 08:39 Bed 25 Private MD: ED Physician Nomi Cosby HPI: 10/07 08:39 This 51 yrs old Black Female presents to ER via EMS with complaints of Abdominal Pain. jmm 08:39 The patient presents with abdominal pain. Onset: The symptoms/episode began/occurred jm last night. The symptoms do not radiate. Associated signs and symptoms: Pertinent positives:. The symptoms are described as achy. Modifying factors: The symptoms are alleviated by nothing, the symptoms are aggravated by nothing. Is a 51-year-old female with history of hypertension and GERD the presents emerged part with complaints of epigastric abdominal pain following a endoscopy which was performed yesterday. Sister states that the patient was prescribed Bentyl and ondansetron with no relief of abdominal pain.. 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 [Active]; pantoprazole Oral [Active]; lisinopril Oral [Active]; hydrochlorothiazide 25 mg Oral tab 1 tab once daily [Active]; - PMHx: 08:57 GERD; Hypertension; tw2 - Immunization history:: Adult Immunizations up to date, Client reports receiving the 2nd dose of the Covid vaccine, with booster. - Social history:: Smoking status: Patient reports the use of cigarette tobacco products, smokes one-half pack cigarettes per day, Patient uses alcohol, Patient/guardian denies using street drugs. ROS: 08:39 Constitutional: Negative for fever, chills, and weight loss, Eyes: Negative for injury, jmm pain, redness, and discharge, ENT: Negative for injury, pain, and discharge, Neck: Negative for injury, pain, and swelling, Cardiovascular: Negative for chest pain, palpitations, and edema, Respiratory: Negative for shortness of breath, cough, wheezing, and pleuritic chest pain. 08:39 Abdomen/GI: Positive for abdominal pain. 08:39 All other systems are negative. Exam: 08:39 Head/Face: atraumatic. Eyes: EOMI, no conjunctival erythema appreciated ENT: Moist [facility] Mucus Membranes Neck: Trachea midline, Supple Chest/axilla: Normal chest wall appearance and motion. Cardiovascular: Regular rate and rhythm. No edema appreciated Respiratory: Normal respirations, no respiratory distress appreciated Abdomen/GI: Non distended, soft Back: Normal ROM Skin: General appearance color normal MS/ Extremity: Moves all extremities, no obvious deformities appreciated, no edema noted to the lower extremities Neuro: Awake and alert Psych: Behavior is normal, Mood is normal, Patient is cooperative and pleasant 08:39 Constitutional: The patient appears alert, awake, anxious, uncomfortable. Vital Signs: 08:40 BP 148 / 104; Pulse 71; Resp 20; Temp 97.8; Pulse Ox 98% ; Weight 70.31 kg; Height 5 eo2 ft. 6 in. (167.64 cm); Pain 10/10; 09:00 BP 165 / 88; Pulse 62; Resp 15; Pulse Ox 98% ; Pain 10/10; eo2 10:00 BP 136 / 73; Pulse 63; Resp 15; Pulse Ox 96% ; Pain 0/10; eo2 11:19 BP 105 / 80; Pulse 66; Resp 18; Pulse Ox 97% on R/A; ab2 08:40 Body Mass Index 25.02 (70.31 kg, 167.64 cm) eo2 MDM: 08:39 Patient medically screened. [facility] 10:57 Data reviewed: vital signs, nurses notes. Counseling: I had a detailed discussion with tyrone the patient and/or guardian regarding: the historical points, exam findings, and any diagnostic results supporting the discharge/admit diagnosis, lab results, radiology results, the need for outpatient follow up, to return to the emergency department if symptoms worsen or persist or if there are any questions or concerns that arise at home. ED course: Pain is relieved in the ER. Advised follow-up with gastroenterology for further evaluation.. 10:57 ED course: CT imaging and labs were unremarkable.. [facility] 10/07 08:39 Order name: Basic Metabolic Panel; Complete Time: 09:19 [facility] 10/07 08:39 Order name: CBC with Diff; Complete Time: 09:09 [facility] 10/07 08:39 Order name: Hepatic Function; Complete Time: 09:19 [facility] 10/07 08:39 Order name: Lipase; Complete Time: 09:19 [facility] 10/07 09:19 Order name: CT Abd/Pelvis - IV Contrast Only; Complete Time: 10:05 [facility] 10/07 08:39 Order name: IV Saline Lock; Complete Time: 09:06 [facility] 10/07 08:39 Order name: Labs collected and sent; Complete Time: 09:06 [facility] Administered Medications: 08:52 Drug: NS 0.9% 1000 ml Route: IV; Rate: 1 bolus; Site: right antecubital; eo2 08:53 Drug: Benadryl (diphenhydrAMINE) 25 mg Route: IVP; Site: right antecubital; eo2 08:54 Drug: Ativan (LORazepam) 1 mg Route: IVP; Site: right antecubital; eo2 08:55 Drug: Reglan (metoCLOPramide) 20 mg {Note: infused in NS 250ml .} Route: IVP; Site: eo2 right antecubital; Disposition: 17:40 Co-signature as Attending Physician, Nomi Cosby MD I agree with the assessment and kdr plan of care. Disposition Summary: 10/07/21 10:58 Discharge Ordered Location: Home [facility] Condition: Stable [facility] Diagnosis - Abdominal pain, Generalized jmm Followup: [facility] - With: Private Physician - When: 2 - 3 days - Reason: Recheck today's complaints, Continuance of care, Re-evaluation by your physician Discharge Instructions: - Abdominal Pain, Adult [facility] - Discharge Summary Sheet tw2 Forms: - Medication Reconciliation Form [facility] - SBAR form tw2 - Thank You Letter [facility] - Antibiotic Education [facility] - Prescription Opioid Use [facility] Prescriptions: - Carafate 1 gram Oral Tablet - take 1 tablet by ORAL route 4 times per day take on an empty stomach, beginning [facility] on waking and last dose at bedtime; 100 tablet; Refills: 0, Product Selection Permitted - omeprazole 40 mg Oral capsule,delayed release(DR/EC) - take 1 capsule by ORAL route once daily before a meal; 30 capsule; Refills: 0, [facility] Product Selection Permitted - Ultracet 37.5-325 mg Oral Tablet - take 1 tablet by ORAL route every 6 hours - for up to 5 days; do not exceed 8 jmm tablets per day.; 12 tablet; Refills: 0, Product Selection Permitted Signatures: Dispatcher [employer] Nomi Torres MD MD kdr Mickail, Joel, PA PA jmm Wise, Tara, RN RN tw2 Allegra Castellon RN RN eo2
--- NOTE | 2021-10-07 10:58 | ER ---
Nurse's Notes [facility] Name: Marya Dodson Age: 51 yrs Sex: Female : 1970 Arrival Date: 10/07/2021 Time: 08:39 Bed 25 Private MD: Diagnosis: Abdominal pain, Generalized Presentation: 10/07 08:40 Chief complaint: Patient states: epigastric pain radiating down to lower abdomen onset eo2 today, states she has not eaten in 3 days d/t endoscopy procedure, states "it feels like I'm having a baby" EMS states: abdominal pain onset this morning s/p endoscopy yesterday. Coronavirus screen: Vaccine status: Patient reports receiving the 2nd dose of the covid vaccine. Client denies travel out of the [place] in the last 14 days. Ebola Screen: Patient negative for fever greater than or equal to 101.5 degrees Fahrenheit, and additional compatible Ebola Virus Disease symptoms Patient denies exposure to infectious person. Patient denies travel to an Ebola-affected area in the 21 days before illness onset. Initial Sepsis Screen: Does the patient meet any 2 criteria? No. Patient's initial sepsis screen is negative. Does the patient have a suspected source of infection? No. Patient's initial sepsis screen is negative. Risk Assessment: Do you want to hurt yourself or someone else? Patient reports no desire to harm self or others. Onset of symptoms is unknown. 08:40 Method Of Arrival: EMS: [facility] eo2 08:40 Acuity: FELI 3 eo2 Triage Assessment: 08:39 General: Appears uncomfortable, well groomed, Behavior is anxious, fussy, inappropriate tw2 for age. Pain: Complains of pain in abdomen. 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 [Active]; pantoprazole Oral [Active]; lisinopril Oral [Active]; hydrochlorothiazide 25 mg Oral tab 1 tab once daily [Active]; - PMHx: 08:57 GERD; Hypertension; tw2 - Immunization history:: Adult Immunizations up to date, Client reports receiving the 2nd dose of the Covid vaccine, with booster. - Social history:: Smoking status: Patient reports the use of cigarette tobacco products, smokes one-half pack cigarettes per day, Patient uses alcohol, Patient/guardian denies using street drugs. Screenin:39 Abuse screen: Denies threats or abuse. Nutritional screening: No deficits noted. eo2 Tuberculosis screening: No symptoms or risk factors identified. Fall Risk None identified. Assessment: 08:50 General: Appears uncomfortable, Behavior is anxious, crying, restless. Pain: Complains eo2 of pain in abdomen. Neuro: Level of Consciousness is awake, alert, obeys commands, Oriented to person, place, time, situation, Denies dizziness, headache. Cardiovascular: Denies chest pain, shortness of breath, Heart tones S1 S2. Respiratory: Airway is patent Trachea midline Respiratory effort is even, unlabored, Respiratory pattern is regular, symmetrical, Breath sounds are clear bilaterally. Denies shortness of breath. GI: Abdomen is flat, Bowel sounds present X 4 quads. Reports upper abdominal pain, epigastric pain, nausea. : No deficits noted. No signs and/or symptoms were reported regarding the genitourinary system. Vital Signs: 08:40 BP 148 / 104; Pulse 71; Resp 20; Temp 97.8; Pulse Ox 98% ; Weight 70.31 kg; Height 5 eo2 ft. 6 in. (167.64 cm); Pain 10/10; 09:00 BP 165 / 88; Pulse 62; Resp 15; Pulse Ox 98% ; Pain 10/10; eo2 10:00 BP 136 / 73; Pulse 63; Resp 15; Pulse Ox 96% ; Pain 0/10; eo2 11:19 BP 105 / 80; Pulse 66; Resp 18; Pulse Ox 97% on R/A; ab2 08:40 Body Mass Index 25.02 (70.31 kg, 167.64 cm) eo2 ED Course: 08:39 Patient arrived in ED. eo2 08:39 Kaleb Matos PA is PHCP. [facility] 08:39 Nomi Cosby MD is Attending Physician. [facility] 08:39 Bed in low position. Call light in reach. Side rails up X2. Pulse ox on. NIBP on. Warm eo2 blanket given. 08:40 Arm band placed on. eo2 08:42 Allegra Castellon, RN is Primary Nurse. eo2 08:45 Inserted saline lock: 20 gauge in right antecubital area, using aseptic technique. iw 09:00 No provider procedures requiring assistance completed. eo2 09:04 Triage completed. eo2 09:38 CT Abd/Pelvis - IV Contrast Only In Process Unspecified. EDMS 11:20 IV discontinued, intact, bleeding controlled, No redness/swelling at site. Pressure ab2 dressing applied. Administered Medications: 08:52 Drug: NS 0.9% 1000 ml Route: IV; Rate: 1 bolus; Site: right antecubital; eo2 08:53 Drug: Benadryl (diphenhydrAMINE) 25 mg Route: IVP; Site: right antecubital; eo2 08:54 Drug: Ativan (LORazepam) 1 mg Route: IVP; Site: right antecubital; eo2 08:55 Drug: Reglan (metoCLOPramide) 20 mg {Note: infused in NS 250ml .} Route: IVP; Site: eo2 right antecubital; Outcome: 10:58 Discharge ordered by MD. jmm 11:19 Discharged to home via wheelchair. ab2 11:19 Condition: good 11:19 Discharge instructions given to patient, family, Instructed on discharge instructions, follow up and referral plans. medication usage, Demonstrated understanding of instructions, follow-up care, medications, Prescriptions given X 3. 11:20 Patient left the ED. ab2 Signatures: Dispatcher [employer] EDMS Kaleb Matos PA PA jmm Williams, Irene, RN RN iw Patience Diaz RN RN tw2 Allegra Castellon, VALARIE RN eo2 Marco Durand ab2 Corrections: (The following items were deleted from the chart) 09:16 08:50 BP 165 / 88; Pulse 62bpm; Resp 15bpm; Pulse Ox 98%; eo2 eo2 10:42 09:00 BP 165 / 88; Pulse 62bpm; Resp 15bpm; Pulse Ox 98%; eo2 eo2
[2021-10-07 11:33] VITALS: TEMP 97.8
[2021-10-07 11:37] VITALS: BP 105/80; O2SAT 97
== END 2021-10-07 11:20 | disposition home or self-care (01) ==
LOC: ER 08:37
DX: R10.84 Generalized abdominal pain (principal); I10 Essential (primary) hypertension; F17.210 Nicotine dependence, cigarettes, uncomplicated; Z98.890 Other specified postprocedural states
CPT/HCPCS: 36415; 74177; 80048; 80076; 83690; 85025; 96374; 96375; 99284; J1200; J2765; J7030; J7050; Q9967

== ENCOUNTER 2023-03-20 08:11 | Emergency (ER) | payer OTHER ==
--- OUTSIDE RECORDS SUMMARY | 2023-03-20 08:15 | XMS REPORT | Continuity of Care Document ---
:1970 Author Organization [facility] t Address [address] [place] [address] Care Team Providers Name Role Phone Cheryl Cruz Attending Clinician Unavailable Payers Payer Name Policy Type Policy Number Effective Date Expiration Date López Mckeon from [id number] 2020 Common [facility] 00:00:00 - [facility] Problems Condition Condition Condition Status Onset Resolution Last Treating Co mments Source Name Details Category Date Date Treatment Clinician Date Decreased Problem Com mon vision in Spirit both eyes [facility] [id number] Cataract Problem Commo n of both Spirit eyes, [facility] unspecifie [facility] cataract [facility] [id number] Primary Problem Common insomnia Spirit [facility] [id number] Depression Problem Co mmon with Spirit anxiety [facility] [id number] Essential Problem Comm on hypertensi Spirit on [facility] Chronic Chronic Problem Common fatigue fatigue [facility] syndrome [facility] [id number] Gastroesop Problem Co mmon hageal Spirit reflux - [facility] disease, esophagiti [facility] s presence [facility] specified [id number] Irritable Problem Comm on bowel Spirit syndrome, - [facility] unspecifie [facility] Allergies, Adverse Reactions, Alerts This patient has no known allergies or adverse reactions. Social History Social Habit Start Date Stop Date Quantity Comments Source History of Tobacco Current Smoker Co mmon Spirit - [facility] Use [facility] Sex Assigned At Com mon Spirit - [facility] Smoking Status Start Date Stop Date Source Current Smoker 2022-08-10 00:00:00 Common Spiri t - [facility] Medications Ordered Filled Start Stop Current Ordering Indication Dosage Frequency Signature Comments Components Source Medication Medication Date Date Medication? Clinician (SIG) Name Name Zofran 4 MG Zofran 4 MG 2021-0 No BID Zofran 4 9-16 MG 00:00: 00 Zofran 4 MG Zofran 4 MG 2021-0 No BID Zofran 4 9-16 MG 00:00: 00 Zofran 4 MG Zofran 4 MG 2021-0 No BID Zofran 4 9-16 MG 00:00: 00 Zofran 4 MG Zofran 4 MG 2021-0 No BID Zofran 4 9-16 MG 00:00: 00 Bentyl 10 Bentyl 10 2021-0 2021- No 1{capsu QID Bentyl 10 MG MG 9-16 10-16 les} MG 00:00: 00:00 00 :00 Bentyl 10 Bentyl 10 2021-0 2- No 1{capsu QID Bentyl 10 MG MG 9-16 10-16 les} MG 00:00: 00:00 00 :00 Bentyl 10 Bentyl 10 2021-0 2- No 1{capsu QID Bentyl 10 MG MG 9-16 10-16 les} MG 00:00: 00:00 00 :00 Bentyl 10 Bentyl 10 2021-0 2- No 1{capsu QID Bentyl 10 MG MG 9-16 10-16 les} MG 00:00: 00:00 00 :00 Trazodone Trazodone 2020-0 Yes Na Cruz 1 tablet Common HCl HCl 9-10 at bedtime Spirit 00:00: - [facility] Citalopram Citalopram 2020-0 Yes Na Cruz 1 tablet Common Hydrobromid Hydrobromid 8-17 S pirit e e 00:00: - [facility] Pantoprazol Pantoprazol 2020-0 Yes Na Cruz 1 tablet Common e Sodium e Sodium 8-17 Spirit 00:00: - [facility] Citalopram Citalopram 0 No 1{table QD Citalopram Hydrobromid Hydrobromid 8-17 t} Hydrobromi e 20 MG e 20 MG 00:00: de 20 MG 00 Citalopram Citalopram 0 No 1{table QD Citalopram Hydrobromid Hydrobromid 8-17 t} Hydrobromi e 20 MG e 20 MG 00:00: de 20 MG 00 Citalopram Citalopram 0 No 1{table QD Citalopram Hydrobromid Hydrobromid 8-17 t} Hydrobromi e 20 MG e 20 MG 00:00: de 20 MG 00 Citalopram Citalopram 0 No 1{table QD Citalopram Hydrobromid Hydrobromid 8-17 t} Hydrobromi e 20 MG e 20 MG 00:00: de 20 MG 00 Citalopram Citalopram 0 No 1{table QD Citalopram Hydrobromid Hydrobromid 8-17 t} Hydrobromi e 20 MG e 20 MG 00:00: de 20 MG 00 Lisinopril Lisinopril No Lisinopril 10 MG 10 MG 10 MG traZODone traZODone No 1{table QD traZODone HCl 100 MG HCl 100 MG t_at_be HCl 100 MG dtime} Pantoprazol Pantoprazol No 1{table QD Pantoprazo e Sodium 40 e Sodium 40 t} le Sodium MG MG 40 MG Pantoprazol Pantoprazol No Pantoprazo e Sodium 40 e Sodium 40 le Sodium MG MG 40 MG Pantoprazol Pantoprazol No Pantoprazo e Sodium 40 e Sodium 40 le Sodium MG MG 40 MG Pantoprazol Pantoprazol No 1{table QD Pantoprazo e Sodium 40 e Sodium 40 t} le Sodium MG MG 40 MG traZODone traZODone No 1{table QD traZODone HCl 100 MG HCl 100 MG t_at_be HCl 100 MG dtime} Lisinopril Lisinopril No Lisinopril 10 MG 10 MG 10 MG Pantoprazol Pantoprazol No Pantoprazo e Sodium 40 e Sodium 40 le Sodium MG MG 40 MG Pantoprazol Pantoprazol No 1{table QD Pantoprazo e Sodium 40 e Sodium 40 t} le Sodium MG MG 40 MG traZODone traZODone No 1{table QD traZODone HCl 100 MG HCl 100 MG t_at_be HCl 100 MG dtime} Lisinopril Lisinopril No Lisinopril 10 MG 10 MG 10 MG Pantoprazol Pantoprazol No Pantoprazo e Sodium 40 e Sodium 40 le Sodium MG MG 40 MG Pantoprazol Pantoprazol No 1{table QD Pantoprazo e Sodium 40 e Sodium 40 t} le Sodium MG MG 40 MG traZODone traZODone No 1{table QD traZODone HCl 100 MG HCl 100 MG t_at_be HCl 100 MG dtime} Lisinopril Lisinopril No Lisinopril 10 MG 10 MG 10 MG Zofran 4 MG Zofran 4 MG No BID Zofran 4 MG Pantoprazol Pantoprazol No Pantoprazo e Sodium 40 e Sodium 40 le Sodium MG MG 40 MG Pantoprazol Pantoprazol No 1{table QD Pantoprazo e Sodium 40 e Sodium 40 t} le Sodium MG MG 40 MG traZODone traZODone No 1{table QD traZODone HCl 100 MG HCl 100 MG t_at_be HCl 100 MG dtime} Lisinopril Lisinopril No Lisinopril 10 MG 10 MG 10 MG Zofran 4 MG Zofran 4 MG No BID Zofran 4 MG Lisinopril Lisinopril Yes Na Cruz 1 tablet Common Spirit - [facility] Omeprazole Omeprazole Yes Na Cruz 1 capsule Common 30 minutes Spirit before - [facility] morning [facility] Pantoprazol Pantoprazol No Pantoprazo e Sodium 40 e Sodium 40 le Sodium MG MG 40 MG Pantoprazol Pantoprazol No 1{table QD Pantoprazo e Sodium 40 e Sodium 40 t} le Sodium MG MG 40 MG traZODone traZODone No 1{table QD traZODone HCl 100 MG HCl 100 MG t_at_be HCl 100 MG dtime} Lisinopril Lisinopril No Lisinopril 10 MG 10 MG 10 MG Pantoprazol Pantoprazol No Pantoprazo e Sodium 40 e Sodium 40 le Sodium MG MG 40 MG Pantoprazol Pantoprazol No 1{table QD Pantoprazo e Sodium 40 e Sodium 40 t} le Sodium MG MG 40 MG traZODone traZODone No 1{table QD traZODone HCl 100 MG HCl 100 MG t_at_be HCl 100 MG dtime} Lisinopril Lisinopril No Lisinopril 10 MG 10 MG 10 MG Procedures This patient has no known procedures. Encounters Start End Encounter Admission Attending Care Care Encounter Source Date/Time Date/Time Type Type Clinicians Facility Department ID 2022-08-03 Outpatient Cruz, Na STLMLC STLMLC [id number] 2 Common 15:27:02 [facility] 2022-07-29 Outpatient Cruz, Na STLMLC STLMLC [id number] 2 Common 14:52:00 [facility] 2022-07-28 Outpatient Cruz, Na STLMLC STLMLC [id number] 2 Common 09:45:02 [facility] 2022-05-26 Outpatient Cruz, Na STLMLC STLMLC [id number] 2 Common 09:51:02 [facility] 2022-05-25 Outpatient Cruz, Na STLMLC STLMLC [id number] 2 Common 09:34:00 [facility] 2022-05-20 Outpatient Cruz, Na STLMLC STLMLC [id number] 2 Common 10:37:02 [facility] 2022-04-28 Outpatient Cruz, Na STLMLC STLMLC [id number] 2 Common 12:47:02 [facility] 2022-04-27 Outpatient Cruz, Na STLMLC STLMLC [id number] 2 Common 10:10:01 [facility] 2021-09-08 Outpatient Cruz, Na STLMLC STLMLC [id number] 2 Common 12:59:19 [id number] [facility] 2021-09-08 Outpatient Cruz, Na STLMLC STLMLC [id number] 2 Common 12:58:09 [id number] [facility] 2021-09-08 Outpatient Cruz, Na STLMLC STLMLC [id number] 2 Common 12:03:16 [id number] [facility] 2021-09-08 Outpatient Cruz, Na STLMLC STLMLC [id number] 2 Common 12:02:58 [id number] [facility] 2021-09-08 Outpatient Cruz, Na STLMLC STLMLC [id number] 2 Common 11:44:03 [id number] [facility] 2021-09-08 Outpatient Cruz, Na STLMLC STLMLC [id number] 2 Common 11:39:57 [id number] [facility] 2021-09-08 Outpatient Cruz, Na STLMLC STLMLC [id number] 2 Common 11:38:14 [id number] [facility] 2022-08-01 2022-08-01 OL DIG E/M STLMLC STLMLC [id number] Common 00:00:00 00:00:00 C 11-20 Spir it [facility] 2022-07-31 2022-07-31 (TEL) STLMLC STLMLC [id number] Co mmon 00:00:00 00:00:00 [facility] 2022-05-12 2022-05-12 (TEL) STLMLC STLMLC [id number] Co mmon 00:00:00 00:00:00 [facility] 2022-04-29 2022-04-29 OFFICE STLMLC STLMLC [id number] Co mmon 00:00:00 00:00:00 VISIT [facility] LEVEL 4 [facility] 2021-05-19 2021-05-19 (TEL) STLMLC STLMLC [id number] Co mmon 00:00:00 00:00:00 [facility] 2020-12-16 2020-12-16 Outpatient STLMLC STLMLC [id number] Common 00:00:00 00:00:00 [facility] 2020-12-11 2020-12-11 Outpatient STLMLC STLMLC [id number] Common 00:00:00 00:00:00 [facility] 2020-07-02 2020-07-02 Outpatient STLMLC STLMLC [id number] Common 00:00:00 00:00:00 [facility] 2020-06-23 2020-06-23 Outpatient STLMLC STLMLC [id number] Common 00:00:00 00:00:00 [facility] 2020-04-23 2020-04-23 Outpatient Rachelle Acevedo [id number] Common 13:40:00 13:40:[address] [facility] 2020-03-30 2020-03-30 Outpatient Rachelle Acevedo [id number] Common 11:20:00 11:20:[address] [facility] Results This patient has no known results.
--- NOTE | 2023-03-20 08:50 | EDPHYS ---
Physician Documentation [facility] Name: Marya Dodson Age: 52 yrs Sex: Female : 1970 Arrival Date: 03/20/2023 Time: 08:11 Bed 12 Private MD: ED Physician Daren Byrne HPI: 03/20 08:30 This 52 yrs old Black Female presents to ER via Unassigned with complaints of Sore rn Throat. 08:30 The patient presents with sore throat. The patient describes throat pain as raw. Onset: rn The symptoms/episode began/occurred yesterday. Severity of symptoms: At their worst the symptoms were moderate, in the emergency department the symptoms are unchanged. Modifying factors: The symptoms are alleviated by nothing, the symptoms are aggravated by swallowing. Associated signs and symptoms: Pertinent negatives fever, headache, shortness of breath. The patient has not experienced similar symptoms in the past. 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 No sob. Able to eat and swallow.. Historical: - Allergies: 08:36 No Known Allergies; ss - Home Meds: 09:32 hydrochlorothiazide 25 mg Oral tab 1 tab once daily [Active]; tf2 - PMHx: 08:36 GERD; Hypertension; ss - Immunization history:: Adult Immunizations unknown, Flu vaccine status is unknown. - Family history:: not pertinent. - Social history:: Smoking status: Patient reports the use of cigarette tobacco products, denies chronic smoking, but will smoke occasionally. - Hospitalizations: : No recent hospitalization is reported. ROS: 08:31 Constitutional: Negative for fever, chills, and weight loss, ENT: + sore throat and rn congestion Cardiovascular: Negative for chest pain, palpitations, and edema, Respiratory: Negative for shortness of breath, cough, wheezing, and pleuritic chest pain, Abdomen/GI: Negative for abdominal pain, nausea, vomiting, diarrhea, and constipation, MS/Extremity: Negative for injury and deformity, Skin: Negative for injury, rash, and discoloration, Neuro: Negative for headache, weakness, numbness, tingling, and seizure. Exam: 08:31 Constitutional: This is a well developed, well nourished patient who is awake, alert, rn and in no acute distress. COughing sputum into emesis bag. ENT: + mild erythema of pharynx, uvula midline, no stridor, + tender anterior cervical LAD, no crepitus, no unequal swelling Neck: Trachea midline, Supple, full range of motion without nuchal rigidity, or vertebral point tenderness. No Meningismus. Cardiovascular: Regular rate and rhythm. No pulse deficits. Respiratory: No increased work of breathing, no retractions or nasal flaring. Skin: Warm, dry Vital Signs: 08:32 BP 160 / 115; Pulse 86; Resp 18; Pulse Ox 99% on R/A; Weight 65.77 kg; Height 5 ft. 6 ss in. ; Pain 10/10; 08:49 BP 160 / 72; ss 09:01 BP 156 / 106; Pulse 80; Resp 16; Pulse Ox 100% on R/A; tf2 09:10 BP 156 / 104; Pulse 84; Resp 14; Pulse Ox 99% on R/A; tf2 08:32 Body Mass Index 23.40 (65.77 kg, 167.64 cm) ss 08:32 Pain Scale: Adult ss Devonte Coma Score: 09:01 Eye Response: spontaneous(4). Motor Response: obeys commands(6). Verbal Response: tf2 oriented(5). Total: 15. MDM: 08:15 Patient medically screened. rn 08:31 Differential diagnosis: group A strep tonsillitis, laryngitis, pharyngitis, rn tonsillitis, upper respiratory infection, viral syndrome. Data reviewed: vital signs, nurses notes, and as a result, I will discharge patient. Counseling: I had a detailed discussion with the patient and/or guardian regarding: the historical points, exam findings, and any diagnostic results supporting the discharge/admit diagnosis, the need for outpatient follow up, to return to the emergency department if symptoms worsen or persist or if there are any questions or concerns that arise at home. Special discussion: I discussed with the patient/guardian in detail that at this point there is no indication for admission to the hospital. It is understood, however, that if the symptoms persist or worsen the patient needs to return immediately for re-evaluation. Administered Medications: 09:00 Drug: Ketorolac IM 15 mg Route: IM; Site: right gluteus; tf2 09:10 Follow up: BP 156 / 104; Pulse 84 bpm; Resp 14 bpm; Pulse Ox 99% RA tf2 09:01 Drug: Dexamethasone IM 10 mg Route: IM; Site: right gluteus; tf2 09:39 Follow up: Response: No adverse reaction tf2 Disposition Summary: 03/20/23 08:49 Discharge Ordered Location: Home rn Problem: new rn Symptoms: are unchanged rn Condition: Stable rn Diagnosis - Acute laryngopharyngitis rn Followup: rn - With: Private Physician - When: As needed - Reason: Recheck today's complaints, Re-evaluation by your physician Discharge Instructions: - Discharge Summary Sheet rn - Pharyngitis rn - Sore Throat rn Forms: - Medication Reconciliation Form rn - Thank You Letter rn - Antibiotic furnace clerk - Prescription Opioid Use rn - Patient Portal Instructions rn - Work release form tf2 Prescriptions: - Augmentin 875-125 mg Oral Tablet - take 1 tablet by ORAL route every 12 hours for 10 days; 20 tablet; Refills: 0, rn Product Selection Permitted - Medrol (Sulaiman) 4 mg Oral Tablets, Dose Pack - take 1 tablet by ORAL route as directed - follow package instructions; 1 rn packet; Refills: 0, Product Selection Permitted Signatures: Daren Byrne MD MD rn Blanchard, Shelby, RN RN ss Fox, Traci, RN RN tf2 Corrections: (The following items were deleted from the chart) 08:33 08:31 Constitutional: This is a well developed, well nourished patient who is awake, rn alert, and in no acute distress. COughing sputum into emesis bag. ENT: + mild erythema of pharynx, uvula midline, no stridor, + tender anterior cervical LAD, no crepitus, no unequal swelling Neck: Trachea midline, Supple, full range of motion without nuchal rigidity, or vertebral point tenderness. No Meningismus. Cardiovascular: Regular rate and rhythm. No pulse deficits. Respiratory: No increased work of breathing, no retractions or nasal flaring. rn
--- NOTE | 2023-03-20 08:50 | ER ---
Nurse's Notes [facility] Name: Marya Dodson Age: 52 yrs Sex: Female : 1970 Arrival Date: 03/20/2023 Time: 08:11 Bed 12 Private MD: Diagnosis: Acute laryngopharyngitis Presentation: 03/20 08:32 Chief complaint: Patient states: sore throat and not feeling well that began yesterday. ss Denies fever. Coronavirus screen: Client denies travel out of the [place] in the last 14 days. Ebola Screen: Patient denies exposure to infectious person. Patient denies travel to an Ebola-affected area in the 21 days before illness onset. Initial Sepsis Screen: Does the patient meet any 2 criteria? No. Patient's initial sepsis screen is negative. Does the patient have a suspected source of infection? No. Patient's initial sepsis screen is negative. Risk Assessment: Do you want to hurt yourself or someone else? Patient reports no desire to harm self or others. Onset of symptoms was March 19, 2023. 08:32 Method Of Arrival: Ambulatory ss 08:32 Acuity: FELI 4 ss Triage Assessment: 09:20 General: Appears in no apparent distress. Behavior is anxious. tf2 Historical: - Allergies: 08:36 No Known Allergies; ss - Home Meds: 09:32 hydrochlorothiazide 25 mg Oral tab 1 tab once daily [Active]; tf2 - PMHx: 08:36 GERD; Hypertension; ss - Immunization history:: Adult Immunizations unknown, Flu vaccine status is unknown. - Family history:: not pertinent. - Social history:: Smoking status: Patient reports the use of cigarette tobacco products, denies chronic smoking, but will smoke occasionally. - Hospitalizations: : No recent hospitalization is reported. Screenin:01 [facility] ED Fall Risk Assessment (Adult) History of falling in the last 3 months, tf2 including since admission No falls in past 3 months (0 pts) Confusion or Disorientation No (0 pts) Intoxicated or Sedated No (0 pts) Impaired Gait No (0 pts) Mobility Assist Device Used No (0 pt) Altered Elimination No (0 pt) Score/Fall Risk Level 0 - 2 = Low Risk Oriented to surroundings, Maintained a safe environment, Educated pt \T\ family on fall prevention, incl call for assistance when getting out of bed, Assessed \T\ reinforced patient's understanding of fall precautions, Provided non-skid footwear. 09:19 Abuse screen: Denies threats or abuse. Denies injuries from another. Nutritional tf2 screening: No deficits noted. Tuberculosis screening: No symptoms or risk factors identified. Assessment: 09:01 Pain:. Pain: Complains of pain in throat; ears; headache. Neuro: No deficits noted. tf2 Cardiovascular: No deficits noted. Respiratory: Airway is patent Respiratory effort is unlabored. EENT: Throat sore and coughing up yellow sputum. 09:31 Respiratory: Breath sounds are clear bilaterally. tf2 Vital Signs: 08:32 BP 160 / 115; Pulse 86; Resp 18; Pulse Ox 99% on R/A; Weight 65.77 kg; Height 5 ft. 6 ss in. ; Pain 10/10; 08:49 BP 160 / 72; ss 09:01 BP 156 / 106; Pulse 80; Resp 16; Pulse Ox 100% on R/A; tf2 09:10 BP 156 / 104; Pulse 84; Resp 14; Pulse Ox 99% on R/A; tf2 08:32 Body Mass Index 23.40 (65.77 kg, 167.64 cm) ss 08:32 Pain Scale: Adult ss Devonte Coma Score: 09:01 Eye Response: spontaneous(4). Motor Response: obeys commands(6). Verbal Response: tf2 oriented(5). Total: 15. ED Course: 08:14 Patient arrived in ED. mr 08:15 Daren Byrne MD is Attending Physician. rn 08:36 Triage completed. ss 08:36 Arm band placed on right wrist. ss 08:52 Nikia Bruno, VALARIE is Primary Nurse. tf2 09:01 No apparent distress. tf2 09:01 Patient has correct armband on for positive identification. Bed in low position. Call tf2 light in reach. 09:01 No provider procedures requiring assistance completed. Patient did not have IV access tf2 during this emergency room visit. 09:19 Provided Education on: Medications to be taken. tf2 09:20 EKG completed in triage. Results shown to MD. tf2 09:31 No provider procedures requiring assistance completed. tf2 Administered Medications: 09:00 Drug: Ketorolac IM 15 mg Route: IM; Site: right gluteus; tf2 09:10 Follow up: BP 156 / 104; Pulse 84 bpm; Resp 14 bpm; Pulse Ox 99% RA tf2 09:01 Drug: Dexamethasone IM 10 mg Route: IM; Site: right gluteus; tf2 09:39 Follow up: Response: No adverse reaction tf2 Medication: 09:31 VIS not applicable for this client. tf2 Outcome: 08:49 Discharge ordered by . rn 09:18 Discharged to home ambulatory. tf2 09:18 Condition: good 09:18 Discharge instructions given to patient, Instructed on discharge instructions, medication usage, Demonstrated understanding of Prescriptions given X 2. 09:40 Patient left the ED. tf2 Signatures: Joyce Sousa Roman, MD MD rn Blanchard, Shelby, RN RN ss Fox, Traci, RN RN tf2
[2023-03-20] MEDS ORDERED: KETOROLAC 30 MG/ML INJ ONE (09:05)
[2023-03-20] MEDS ORDERED: dexAMETHasone 10 MG/ML VIAL ONE (09:05)
[2023-03-20 09:48] VITALS: BP 156/104; O2SAT 99
== END 2023-03-20 09:40 | disposition home or self-care (01) ==
LOC: ER 08:11
DX: J06.0 Acute laryngopharyngitis (principal); F17.210 Nicotine dependence, cigarettes, uncomplicated
CPT/HCPCS: 96372; 99284; J1100

== ENCOUNTER → 2023-10-20 | Emergency (ER) | payer SELFPAY ==
[~2023-10-20] MED LIST: CIPROFLOXACIN 400mg IV 400 MG/200 ML BAG IV ONE; HYDROMORPHONE HCL 1 MG/ML INJ ONE; METRONIDAZOLE 500mg IVPB 500 MG/100 ML BAG IV ONE; NA CHLORIDE 0.9% 1,000 ML ONE; ONDANSETRON 4 MG/2 ML VIAL ONE
--- OUTSIDE RECORDS SUMMARY | 2023-10-20 08:04 | XMS REPORT | Continuity of Care Document ---
Author Name Unknown Address [address] [place] [address] [facility] Address 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 Role Phone Clarissa Suarez Attending Clinician Unavailable Cheryl Cruz Attending Clinician Unavailable Payers Payer Name Policy Type Policy Number Effective Date Expirati on Date Source [facility] Individual Exchange Benefit Plan [id number] [facility] Ambetter from [facility] Plan [id number] 2020 00:00:00 [facility] Problems Condition Name Condition Details Condition Category Status Onset Date Resolution Date Last Treatment Date Treating Clinician Comments Source [id number] Mild major depression Problem [facility] Pure hyperchole sterolemia Pure hyperchole sterolemia Problem [facility] [id number] Decreased vision in both eyes Problem [facility] [id number] Cataract of both eyes, unspecifie d cataract type Problem [facility] [id number] Primary insomnia Problem [facility] [id number] Depression with anxiety Problem [facility] [id number] Essential hypertensi on Problem [facility] Chronic fatigue syndrome Chronic fatigue Problem [facility] [id number] Gastroesop hageal reflux disease, esophagiti s presence not specified Problem [facility] [id number] Irritable bowel syndrome, unspecifie d type Problem [facility] Social History Social Habit Start Date Stop Date Quantity Comments Source History of Tobacco Use [facility] Sex Assigned At [facility] Smoking Status Start Date Stop Date Source Never Smoker [facility] Current Smoker 2022-08-10 00:00:00 [facility] Medications Ordered Medication Name Filled Medication Name Start Date Stop Date Current Medication? Ordering Clinician Indication Dosage Frequency Signature (SIG) Comments Components Source Zofran 4 MG Zofran 4 MG 04-29 00:00: 00 No BID Zofran 4 MG Zofran 4 MG Zofran 4 MG 04-29 00:00: 00 No BID Zofran 4 MG Zofran 4 MG Zofran 4 MG 04-29 00:00: 00 No BID Zofran 4 MG Zofran 4 MG Zofran 4 MG 04-29 00:00: 00 No BID Zofran 4 MG Bentyl 10 MG Bentyl 10 MG 04-29 00:00: 00 05-29 00:00 :00 No 1{capsu les} QID Bentyl 10 MG Bentyl 10 MG Bentyl 10 MG 04-29 00:00: 00 05-29 00:00 :00 No 1{capsu les} QID Bentyl 10 MG Bentyl 10 MG Bentyl 10 MG 16 00:00: 00 05-29 00:00 :00 No 1{capsu les} QID Bentyl 10 MG Bentyl 10 MG Bentyl 10 MG 16 00:00: 00 05-29 00:00 :00 No 1{capsu les} QID Bentyl 10 MG Trazodone HCl Trazodone HCl 04-23 00:00: 00 Yes Na Cruz 1 tablet at bedtime [facility] Citalopram Hydrobromid e Citalopram Hydrobromid e 2020-0 8-17 00:00: 00 Yes Na Cruz 1 tablet [facility] Pantoprazol e Sodium Pantoprazol e Sodium 2020-0 8-17 00:00: 00 Yes Na Cruz 1 tablet [facility] Citalopram Hydrobromid e 20 MG Citalopram Hydrobromid e 20 MG 2020-0 8-17 00:00: 00 No 1{table t} QD Citalopram Hydrobromi de 20 MG Citalopram Hydrobromid e 20 MG Citalopram Hydrobromid e 20 MG 2020-0 8-17 00:00: 00 No 1{table t} QD Citalopram Hydrobromi de 20 MG Citalopram Hydrobromid e 20 MG Citalopram Hydrobromid e 20 MG 2020-0 8-17 00:00: 00 No 1{table t} QD Citalopram Hydrobromi de 20 MG Citalopram Hydrobromid e 20 MG Citalopram Hydrobromid e 20 MG 2020-0 8-17 00:00: 00 No 1{table t} QD Citalopram Hydrobromi de 20 MG Citalopram Hydrobromid e 20 MG Citalopram Hydrobromid e 20 MG 2020-0 8-17 00:00: 00 No 1{table t} QD Citalopram Hydrobromi de 20 MG Lisinopril Lisinopril Yes Na Cruz 1 tablet [facility] Omeprazole Omeprazole Yes Na Cruz 1 capsule 30 minutes before morning meal [facility] Pantoprazol e Sodium 40 MG Pantoprazol e Sodium 40 MG No 1{table t} QD Pantoprazo le Sodium 40 MG traZODone HCl 50 MG traZODone HCl 50 MG No 1{table t_at_be dtime} QD traZODone HCl 50 MG Lisinopril 30 MG Lisinopril 30 MG No 1{table t} QD Lisinopril 30 MG Pantoprazol e Sodium 40 MG Pantoprazol e Sodium 40 MG No 1{table t} QD Pantoprazo le Sodium 40 MG traZODone HCl 50 MG traZODone HCl 50 MG No 1{table t_at_be dtime} QD traZODone HCl 50 MG Lisinopril 30 MG Lisinopril 30 MG No 1{table t} QD Lisinopril 30 MG Pantoprazol e Sodium 40 MG Pantoprazol e Sodium 40 MG No 1{table t} QD Pantoprazo le Sodium 40 MG traZODone HCl 50 MG traZODone HCl 50 MG No 1{table t_at_be dtime} QD traZODone HCl 50 MG Lisinopril 30 MG Lisinopril 30 MG No 1{table t} QD Lisinopril 30 MG Pantoprazol e Sodium 40 MG Pantoprazol e Sodium 40 MG No 1{table t} QD Pantoprazo le Sodium 40 MG traZODone HCl 50 MG traZODone HCl 50 MG No 1{table t_at_be dtime} QD traZODone HCl 50 MG Lisinopril 30 MG Lisinopril 30 MG No 1{table t} QD Lisinopril 30 MG Pantoprazol e Sodium 40 MG Pantoprazol e Sodium 40 MG No Pantoprazo le Sodium 40 MG Pantoprazol e Sodium 40 MG Pantoprazol e Sodium 40 MG No 1{table t} QD Pantoprazo le Sodium 40 MG traZODone HCl 100 MG traZODone HCl 100 MG No 1{table t_at_be dtime} QD traZODone HCl 100 MG Lisinopril 10 MG Lisinopril 10 MG No Lisinopril 10 MG Pantoprazol e Sodium 40 MG Pantoprazol e Sodium 40 MG No Pantoprazo le Sodium 40 MG Pantoprazol e Sodium 40 MG Pantoprazol e Sodium 40 MG No 1{table t} QD Pantoprazo le Sodium 40 MG traZODone HCl 100 MG traZODone HCl 100 MG No 1{table t_at_be dtime} QD traZODone HCl 100 MG Lisinopril 10 MG Lisinopril 10 MG No Lisinopril 10 MG Lisinopril 10 MG Lisinopril 10 MG No Lisinopril 10 MG traZODone HCl 100 MG traZODone HCl 100 MG No 1{table t_at_be dtime} QD traZODone HCl 100 MG Pantoprazol e Sodium 40 MG Pantoprazol e Sodium 40 MG No 1{table t} QD Pantoprazo le Sodium 40 MG Pantoprazol e Sodium 40 MG Pantoprazol e Sodium 40 MG No Pantoprazo le Sodium 40 MG Pantoprazol e Sodium 40 MG Pantoprazol e Sodium 40 MG No Pantoprazo le Sodium 40 MG Pantoprazol e Sodium 40 MG Pantoprazol e Sodium 40 MG No 1{table t} QD Pantoprazo le Sodium 40 MG traZODone HCl 100 MG traZODone HCl 100 MG No 1{table t_at_be dtime} QD traZODone HCl 100 MG Lisinopril 10 MG Lisinopril 10 MG No Lisinopril 10 MG Pantoprazol e Sodium 40 MG Pantoprazol e Sodium 40 MG No Pantoprazo le Sodium 40 MG Pantoprazol e Sodium 40 MG Pantoprazol e Sodium 40 MG No 1{table t} QD Pantoprazo le Sodium 40 MG traZODone HCl 100 MG traZODone HCl 100 MG No 1{table t_at_be dtime} QD traZODone HCl 100 MG Lisinopril 10 MG Lisinopril 10 MG No Lisinopril 10 MG Pantoprazol e Sodium 40 MG Pantoprazol e Sodium 40 MG No Pantoprazo le Sodium 40 MG Pantoprazol e Sodium 40 MG Pantoprazol e Sodium 40 MG No 1{table t} QD Pantoprazo le Sodium 40 MG traZODone HCl 100 MG traZODone HCl 100 MG No 1{table t_at_be dtime} QD traZODone HCl 100 MG Lisinopril 10 MG Lisinopril 10 MG No Lisinopril 10 MG Zofran 4 MG Zofran 4 MG No BID Zo anibal 4 MG Pantoprazol e Sodium 40 MG Pantoprazol e Sodium 40 MG No Pantoprazo le Sodium 40 MG Pantoprazol e Sodium 40 MG Pantoprazol e Sodium 40 MG No 1{table t} QD Pantoprazo le Sodium 40 MG traZODone HCl 100 MG traZODone HCl 100 MG No 1{table t_at_be dtime} QD traZODone HCl 100 MG Lisinopril 10 MG Lisinopril 10 MG No Lisinopril 10 MG Zofran 4 MG Zofran 4 MG No BID Zo anibal 4 MG Vital Signs Vital Name Observation Time Observation Value Comments S ource height 2023-08-22 15:40:00 66 [in_i] Commo n [facility] weight 2023-08-22 15:40:00 162.4 [lb_av] Co mmon [facility] temperature 2023-08-22 15:40:00 97.3 [degF] Com [facility] bmi 2023-08-22 15:40:00 26.21 kg/m2 Comm on [facility] oximetry 2023-08-22 15:40:00 96 % Commo n [facility] respiratory rate 2023-08-22 15:40:00 16 /min [facility] blood pressure systolic 2023-08-22 15:40:00 156 mm[Hg] Common [facility] blood pressure diastolic 2023-08-22 15:40:00 84 mm[Hg] Common [facility] height 2023-08-01 15:40:00 66 [in_i] Commo n [facility] weight 2023-08-01 15:40:00 157.8 [lb_av] Co mmon [facility] temperature 2023-08-01 15:40:00 97.2 [degF] Com mon [facility] bmi 2023-08-01 15:40:00 25.47 kg/m2 Comm on [facility] oximetry 2023-08-01 15:40:00 99 % Commo n [facility] respiratory rate 2023-08-01 15:40:00 16 /min [facility] blood pressure systolic 2023-08-01 15:40:00 136 mm[Hg] [facility] blood pressure diastolic 2023-08-01 15:40:00 74 mm[Hg] Common [facility] height 2023-07-04 14:20:00 66 [in_i] Commo n [facility] weight 2023-07-04 14:20:00 156 [lb_av] Comm on [facility] temperature 2023-07-04 14:20:00 97.3 [degF] Com mon [facility] bmi 2023-07-04 14:20:00 25.18 kg/m2 Comm on [facility] oximetry 2023-07-04 14:20:00 100 % Commo n [facility] respiratory rate 2023-07-04 14:20:00 16 /min [facility] blood pressure systolic 2023-07-04 14:20:00 152 mm[Hg] [facility] blood pressure diastolic 2023-07-04 14:20:00 86 mm[Hg] [facility] Encounters Start Date/Time End Date/Time Encounter Type Admission Type Attending [facility] Facility Care Department Encounter ID Source 2023-08-21 13:10:00 Outpatient Suarez, Clarissa STLMLC ST[facility] [id number] [facility] 2023-08-02 07:11:00 Outpatient Suarez, Clarissa STLMLC ST[facility] [id number] [facility] 2023-08-01 15:30:01 Outpatient Suarez, Clarissa STLMLC STL[facility]C [id number] [facility] 2023-07-04 14:10:00 Outpatient Suarez, Clarissa STLMLC STLMLC [id number] [facility] 2023-06-20 13:27:00 Outpatient Suarez, Clarissa STLMLC STLMLC [id number] [facility] 2022-08-03 15:27:02 Outpatient Cruz, Na STLMLC STLMLC [id number] [facility] 2022-07-29 14:52:00 Outpatient Cruz, Na STLMLC STLMLC [id number] [facility] 2022-07-28 09:45:02 Outpatient Cruz, Na STLMLC STLMLC [id number] [facility] 2022-05-26 09:51:02 Outpatient Cruz, Na STLMLC STLMLC [id number] [facility] 2022-05-25 09:34:00 Outpatient Cruz, Na STLMLC STLMLC [id number] [facility] 2022-05-20 10:37:02 Outpatient Cruz, Na STLMLC STLMLC [id number] [facility] 2022-04-28 12:47:02 Outpatient Cruz, Na STLMLC STLMLC [id number] [facility] 2022-04-27 10:10:01 Outpatient Cruz, Na STLMLC STLMLC [id number] [facility] 2021-09-08 12:59:19 Outpatient Cruz, Na STLMLC STLMLC [id number] [facility] 2021-09-08 12:58:09 Outpatient Cruz, Na STLMLC STLMLC [id number] [facility] 2021-09-08 12:03:16 Outpatient Cruz, Na STLMLC STLMLC [id number] [facility] 2021-09-08 12:02:58 Outpatient Cruz, Na STLMLC STLMLC [id number] [facility] 2021-09-08 11:44:03 Outpatient Cruz, Na STLMLC STLMLC [id number] [facility] 2021-09-08 11:39:57 Outpatient Cruz, Na STLMLC STLMLC [id number] [facility] 2021-09-08 11:38:14 Outpatient Cruz, Na STLMLC STLMLC [id number] [facility] 2023-08-22 00:00:00 2023-08-22 00:00:00 OFFICE VISIT ESTAB PT LEVEL 4 STLMLC STLMLC [id number] [facility] 2023-08-01 00:00:00 2023-08-01 00:00:00 OFFICE VISIT ESTAB PT LEVEL 4 [facility] STL[facility]C [id number] [facility] 2023-07-04 00:00:00 2023-07-04 00:00:00 OFFICE VISIT ESTAB PT LEVEL 4 [facility] STL[facility]C [id number] [facility] 2023-07-03 00:00:00 2023-07-03 00:00:00 (TEL) STLMLC STLMLC [id number] [facility] 2022-08-01 00:00:00 2022-08-01 00:00:00 OL DIG E/M SVC 11-20 MIN STLMLC STLMLC [id number] [facility] 2022-07-31 00:00:00 2022-07-31 00:00:00 (TEL) STLMLC STLMLC [id number] [facility] 2022-05-12 00:00:00 2022-05-12 00:00:00 (TEL) STLMLC STLMLC [id number] [facility] 2022-04-29 00:00:00 2022-04-29 00:00:00 OFFICE VISIT ESTAB PT LEVEL 4 STLMLC STLMLC [id number] [facility] 2021-05-19 00:00:00 2021-05-19 00:00:00 (TEL) STLMLC STLMLC [id number] [facility] 2020-12-16 00:00:00 2020-12-16 00:00:00 Outpatient [facility] ST[facility]C [id number] [facility] 2020-12-11 00:00:00 2020-12-11 00:00:00 Outpatient [facility]C ST[facility]C [id number] [facility] 2020-07-02 00:00:00 2020-07-02 00:00:00 Outpatient [facility]C ST[facility]C [id number] [facility] 2020-06-23 00:00:00 2020-06-23 00:00:00 Outpatient [facility]C STL[facility]C [id number] [facility] 2020-04-23 13:40:00 2020-04-23 13:40:00 Outpatient [facility] [id number] [facility] 2020-03-30 11:20:00 2020-03-30 11:20:00 Outpatient [facility] [id number] [facility] Results Test Description Test Time Test Comments Results Result Co mments Source TSH REFLEX TO FREE [id number] 00:00:00* Test Item Value Reference Range Interpretation Comme nts TSH REFLEX TO FREE T4 (test code = 54840-1) 1.430 UIU/ML See_Comment [Automated messa ge] The system which generated this result transmitted reference range: 0.400-4.100 UIU/ML. The reference range was not used to interpret this result as normal/abnormal. LIPID PANEL WITH REFLEX DIRECT [id number] 00:00:00* Test Item Value Reference Range Interpretation Comme nts CALC LDL CHOL (test code = 78925-1) 102 MG/DL See_Comment H [Automated messa ge] The system which generated this result transmitted reference range: <100 MG/DL. The reference range was not used to interpret this result as normal/abnormal. CHOLESTEROL (test code = 2093-3) 189 MG/DL See_Comment [Automated messa ge] The system which generated this result transmitted reference range: <200 MG/DL. The reference range was not used to interpret this result as normal/abnormal. HDL CHOLESTEROL (test code = 2085-9) 67 MG/DL See_Comment [Automated messa ge] The system which generated this result transmitted reference range: >39 MG/DL. The reference range was not used to interpret this result as normal/abnormal. RISK RATIO LDL/HDL (test code = 42550-4) 1.52 RATIO See_Comment [Automated message] The system which generated this result transmitted reference range: <3.22 RATIO. The reference range was not used to interpret this result as normal/abnormal. TRIGLYCERIDES (test code = 2571-8) 105 MG/DL See_Comment [Automated messa ge] The system which generated this result transmitted reference range: <150 MG/DL. The reference range was not used to interpret this result as normal/abnormal. COMPREHENSIVE METABOLIC [id number] 00:00:00* Test Item Value Reference Range Interpretation Comme nts ALBUMIN (test code = 1751-7) 4.6 G/DL See_Comment [Automated messa ge] The system which generated this result transmitted reference range: 3.5-5.2 G/DL. The reference range was not used to interpret this result as normal/abnormal. ALKALINE PHOSPHATASE (test code = 6768-6) 72 U/L See_Comment [Automated message] The system which generated this result transmitted reference range: 40-133 U/L. The reference range was not used to interpret this result as normal/abnormal. BILIRUBIN, TOTAL (test code = 1975-2) 0.7 MG/DL See_Comment [Automated message] The system which generated this result transmitted reference range: <=1.2 MG/DL. The reference range was not used to interpret this result as normal/abnormal. BUN (test code = 3094-0) 12 MG/DL See_Comment [Automated messa ge] The system which generated this result transmitted reference range: 6-20 MG/DL. The reference range was not used to interpret this result as normal/abnormal. CALCIUM (test code = 37885-4) 9.9 MG/DL See_Comment [Automated messa ge] The system which generated this result transmitted reference range: 8.5-10.5 MG/DL. The reference range was not used to interpret this result as normal/abnormal. CALC A/G RATIO (test code = 1759-0) 1.6 RATIO See_Comment [Automated messa ge] The system which generated this result transmitted reference range: 1.0-2.6 RATIO. The reference range was not used to interpret this result as normal/abnormal. CALC BUN/CREAT (test code = 3097-3) 17 RATIO See_Comment [Automated messa ge] The system which generated this result transmitted reference range: 6-28 RATIO. The reference range was not used to interpret this result as normal/abnormal. CALC GLOBULIN (test code = 62121-1) 2.9 G/DL See_Comment [Automated messa ge] The system which generated this result transmitted reference range: 1.9-3.7 G/DL. The reference range was not used to interpret this result as normal/abnormal. CARBON DIOXIDE (test code = 1963-8) 28 MEQ/L See_Comment [Automated messa ge] The system which generated this result transmitted reference range: 19-31 MEQ/L. The reference range was not used to interpret this result as normal/abnormal. CHLORIDE (test code = 2075-0) 105 MEQ/L See_Comment [Automated messa ge] The system which generated this result transmitted reference range: 95-107 MEQ/L. The reference range was not used to interpret this result as normal/abnormal. CREATININE (test code = 2160-0) 0.71 MG/DL See_Comment [Automated messa ge] The system which generated this result transmitted reference range: 0.60-1.30 MG/DL. The reference range was not used to interpret this result as normal/abnormal. eGFR (2020 CKD-EPI) (test code = 31057-3) 100 ML/MIN/1.73 See_Comment [Automated message] The system which generated this result transmitted reference range: >60 ML/MIN/1.73. The reference range was not used to interpret this result as normal/abnormal. GLUCOSE (test code = 1558-6) 98 MG/DL See_Comment [Automated messa ge] The system which generated this result transmitted reference range: 70-99 MG/DL. The reference range was not used to interpret this result as normal/abnormal. POTASSIUM (test code = 2823-3) 3.8 MEQ/L See_Comment [Automated messa ge] The system which generated this result transmitted reference range: 3.5-5.4 MEQ/L. The reference range was not used to interpret this result as normal/abnormal. PROTEIN, TOTAL (test code = 2885-2) 7.5 G/DL See_Comment [Automated messa ge] The system which generated this result transmitted reference range: 6.1-8.3 G/DL. The reference range was not used to interpret this result as normal/abnormal. AST (test code = 1920-8) 24 U/L See_Comment [Automated messa ge] The system which generated this result transmitted reference range: 9-40 U/L. The reference range was not used to interpret this result as normal/abnormal. ALT (test code = 1742-6) 13 U/L See_Comment [Automated messa ge] The system which generated this result transmitted reference range: 5-40 U/L. The reference range was not used to interpret this result as normal/abnormal. SODIUM (test code = 2951-2) 143 MEQ/L See_Comment [Automated messa ge] The system which generated this result transmitted reference range: 133-146 MEQ/L. The reference range was not used to interpret this result as normal/abnormal. CULTURE, [id number] 00:00:00* Test Item Value Reference Range Interpretation Comme nts CULTURE, URINE (test code = 630-4) SPECIMEN NUMBER: [id number]
[2023-10-20 08:44] LABS: Absolute Lymphocytes (CBC) 1.1 K/uL (0.7-4.9); Basophils % 0.4 % (0-1.3); Hematocrit 35.1 % (36.0-45.0); Lymphocytes % 17.8 % (15.3-44.8); MCV 85.6 fL (80-100); MPV 6.6 fL (7.6-11.3); Platelets 296 thou/uL (152-406)
[2023-10-20 08:45] LABS: Protime INR 1.05
[2023-10-20 09:05] LABS: Albumin 3.9 g/dL (3.4-5.0); Albumin/Globulin Ratio 1.1 (1.1-1.8); Anion Gap 7.6 mEq/L (5.0-15.0); Bilirubin Direct 0.1 mg/dL (0-0.2); Bilirubin Indirect, Calculated 0.4 mg/dL (0.2-0.8); Bilirubin Total 0.5 mg/dL (0.2-1.0); Potassium 3.6 mEq/L (3.5-5.1); Protein, Total 7.6 g/dL (6.4-8.2); Troponin High Sensitivity 4.1 pg/mL (<58.9)
--- NOTE | 2023-10-20 09:16 | RAD REPORT ---
EXAM DESCRIPTION: RAD - Chest Single View - 10/20/2023 9:02 am CLINICAL HISTORY: ABDOMINAL DISTENTION Chest pain. COMPARISON: Chest Single View dated 07/08/2016 FINDINGS: Portable technique limits examination quality. The lungs are grossly clear. The heart is normal in size. No displaced fractures. IMPRESSION: No acute intrathoracic process suspected.
--- NOTE | 2023-10-20 09:35 | RAD REPORT ---
EXAM DESCRIPTION: CTAbdomen Pelvis W Contrast - 10/20/2023 9:26 am CLINICAL HISTORY: Abdominal pain. ABD PAIN COMPARISON: Abdomen Pelvis W Contrast dated 10/07/2021; Abdomen Pelvis W Contrast dated 03/27/2021 ; Abdomen Pelvis W Contrast dated 12/07/2020; CT ABD PELVIS W CONTRAST dated 12/24/2014 TECHNIQUE: Biphasic CT imaging of the abdomen and pelvis was performed with 100 ml non-ionic IV cont rast. All CT scans are performed using dose optimization technique as appropriate and may include automated exposure control or mA/KV adjustment according to patient size. FINDINGS: The lung bases are clear. The liver, spleen, pancreas, adrenal glands and kidneys are within normal limits. No bowel obstruction, free air, free fluid or abscess. There is a mild thickened appearance to the co danny suggesting a mild colitis is possible. The appendix is normal. No evidence of significant lympha denopathy. No suspicious bony findings. IMPRESSION: Mild colitis is possible. Otherwise, no acute findings seen.
[2023-10-20 10:08] LABS: Specific Gravity > 1.030 (1.005-1.030); Urine Bacteria None Seen /HPF (<20); Urine Bilirubin NEGATIVE (Negative); Urine Blood Negative (Negative); Urine Clarity Clear (Clear); Urine Color Colorless (Yellow); Urine Glucose NEGATIVE (Negative); Urine Mucus Slight /HPF (None Seen); Urine Protein NEGATIVE (Negative); Urine RBC <5 /HPF (None Seen); Urine Urobilinogen Normal (Normal)
--- NOTE | 2023-10-20 12:34 | EDPHYS ---
Physician Documentation [facility] Name: Marya Dodson Age: 53 yrs Sex: Female : 1970 Arrival Date: 10/20/2023 Time: 08:02 Bed 8 Private MD: ED Physician Rodo Cornejo HPI: 10/19 12:28 This 53 yrs old Black Female presents to ER via EMS with complaints of Abdominal Pain. gerard 12:28 The patient presents with abdominal pain in the lower abdomen. Onset: The gerard symptoms/episode began/occurred today. The symptoms do not radiate. Associated signs and symptoms: none. The symptoms are described as constant, crampy. Modifying factors: The symptoms are alleviated by nothing. Severity of pain: At its worst the pain was moderate severe in the emergency department the pain has improved moderately. The patient has not experienced similar symptoms in the past. 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 - Social history:: Smoking status: Patient denies any tobacco usage or history of. ROS: 12:29 Constitutional: Negative for fever, chills, and weight loss, Eyes: Negative for injury, gerard pain, redness, and discharge, ENT: Negative for injury, pain, and discharge, Neck: Negative for injury, pain, and swelling, Cardiovascular: Negative for chest pain, palpitations, and edema, Respiratory: Negative for shortness of breath, cough, wheezing, and pleuritic chest pain, Back: Negative for injury and pain, : Negative for injury, bleeding, discharge, and swelling, MS/Extremity: Negative for injury and deformity, Skin: Negative for injury, rash, and discoloration, Neuro: Negative for headache, weakness, numbness, tingling, and seizure, Psych: Negative for depression, anxiety, suicide ideation, homicidal ideation, and hallucinations, Allergy/Immunology: Negative for hives, rash, and allergies, Endocrine: Negative for neck swelling, polydipsia, polyuria, polyphagia, and marked weight changes, Hematologic/Lymphatic: Negative for swollen nodes, abnormal bleeding, and unusual bruising, 12:29 Abdomen/GI: Positive for abdominal pain, diarrhea, abdominal cramps, of the right lower quadrant and left lower quadrant, Exam: 12:29 Constitutional: This is a well developed, well nourished patient who is awake, alert, gerard and in no acute distress. Head/Face: Normocephalic, atraumatic. Eyes: Pupils equal round and reactive to light, extra-ocular motions intact. Lids and lashes normal. Conjunctiva and sclera are non-icteric and not injected. Cornea within normal limits. Periorbital areas with no swelling, redness, or edema. ENT: Nares patent. No nasal discharge, no septal abnormalities noted. Tympanic membranes are normal and external auditory canals are clear. Oropharynx with no redness, swelling, or masses, exudates, or evidence of obstruction, uvula midline. Mucous membranes moist. Neck: Trachea midline, no thyromegaly or masses palpated, and no cervical lymphadenopathy. Supple, full range of motion without nuchal rigidity, or vertebral point tenderness. No Meningismus. Chest/axilla: Normal chest wall appearance and motion. Nontender with no deformity. No lesions are appreciated. Cardiovascular: Regular rate and rhythm with a normal S1 and S2. No gallops, murmurs, or rubs. Normal PMI, no JVD. No pulse deficits. Respiratory: Lungs have equal breath sounds bilaterally, clear to auscultation and percussion. No rales, rhonchi or wheezes noted. No increased work of breathing, no retractions or nasal flaring. Back: No spinal tenderness. No costovertebral tenderness. Full range of motion. Skin: Warm, dry with normal turgor. Normal color with no rashes, no lesions, and no evidence of cellulitis. MS/ Extremity: Pulses equal, no cyanosis. Neurovascular intact. Full, normal range of motion. Neuro: Awake and alert, GCS 15, oriented to person, place, time, and situation. Cranial nerves II-XII grossly intact. Motor strength 5/5 in all extremities. Sensory grossly intact. Cerebellar exam normal. Normal gait. 12:29 ECG was reviewed by the Attending Physician. 12:29 Abdomen/GI: Inspection: abdomen appears normal, Bowel sounds: normal, Palpation: moderate abdominal tenderness, in the right lower quadrant and left lower quadrant, Liver: no appreciated palpable abnormalities, Hernia: not appreciated, Vital Signs: 08:03 BP 172 / 100; Pulse 70; Resp 24 S; Temp 98(TE); Pulse Ox 100% on R/A; Pain 10/10; aa5 09:10 BP 149 / 97 Supine; Pulse 69; Resp 16; Pulse Ox 100% on R/A; Pain 5/10; zm 10:18 BP 138 / 90; Pulse 68; Resp 18; Temp 98.2(O); Pulse Ox 100% on R/A; mb9 11:31 BP 128 / 87; Pulse 70; Resp 16; Temp 98.1(O); Pulse Ox 100% ; mb9 12:42 BP 129 / 88; Pulse 69; Resp 16; Pulse Ox 100% on R/A; Pain 0/10; mb9 08:03 Pain Scale: Adult aa5 09:10 Pain Scale: Adult zm 12:42 Pain Scale: Adult mb9 MDM: 08:05 Patient medically screened. [facility] 12:31 Differential diagnosis: cholecystitis, Cholelithiasis, diverticulitis, gastritis, gerard Hepatitis, Mesenteric ischemia or infarction, non-specific abd pain, pancreatitis. Data reviewed: vital signs, nurses notes, EMS record, lab test result(s), EKG, radiologic studies, CT scan. Consideration of Admission/Observation Escalation of care including admission/observation considered. I considered the following discharge prescriptions or medication management in the emergency department Medications were administered in the Emergency Department. See MAR. Independent interpretation of the following test(s) in the Emergency Department EKG: See my EKG interpretation above. Test considered but Not performed: MRI: NO MRCP. Historians other than the Patient: EMS: WELL INFORMED. Spouse/Significant Other: WELL INFORMED. Care significantly affected by the following chronic conditions: Hypertension, Obesity, GERD. 10/19 08:22 Order name: CBC with Diff; Complete Time: 11: [facility] 10/19 08:22 Order name: CMP; Complete Time: 11: aa 10/19 08:22 Order name: Lipase; Complete Time: 11: aa 10/19 08:22 Order name: Basic Metabolic Panel [facility] 10/19 08:22 Order name: CBC with Diff [facility] 10/19 08:22 Order name: LFT's; Complete Time: 11: [facility] 10/19 08:22 Order name: Magnesium; Complete Time: 11:12 [facility] 10/19 08:22 Order name: NT PRO-BNP; Complete Time: 11:12 [facility] 10/19 08:22 Order name: PT-INR; Complete Time: 11:12 gerard 10/19 08:22 Order name: Troponin HS; Complete Time: 11:12 gerard 10/19 08:22 Order name: Lipase 10/19 08:22 Order name: Urinalysis w/ reflexes; Complete Time: 11:12 gerard 10/19 08:22 Order name: XRAY Chest (1 view); Complete Time: 11:12 [facility] 10/19 08:22 Order name: CT Abd/Pelvis - IV Contrast Only; Complete Time: 11:12 [facility] 10/19 08:22 Order name: EKG; Complete Time: 08:23 [facility] 10/19 08:22 Order name: IV Saline Lock; Complete Time: 08:35 aa5 10/19 08:22 Order name: Labs collected and sent; Complete Time: 08:35 aa5 10/19 08:22 Order name: Cardiac monitoring; Complete Time: 08:22 [facility] 10/19 08:22 Order name: EKG - Nurse/Tech; Complete Time: 08:57 [facility] 10/19 08:22 Order name: IV Saline Lock; Complete Time: 08:22 [facility] 10/19 08:22 Order name: Labs collected and sent; Complete Time: 08:23 [facility] 10/19 08:22 Order name: O2 Per Protocol; Complete Time: 08:23 gerard 10/19 08:22 Order name: O2 Sat Monitoring; Complete Time: 08:23 [facility] EC:29 Rate is 63 beats/min. Rhythm is regular. QRS Grant is Normal. MA interval is normal. QRS gerard interval is normal. QT interval is normal. No Q waves. T waves are Normal. No ST changes noted. Clinical impression: NSR w/ Non-specific ST/T Changes, 1st degree heart block, and No evidence of ischemia. Interpreted by me. Reviewed by me. Administered Medications: 08:30 Drug: NS 0.9% IV 1000 ml IV at 1 bolus Per protocol; 1000 mL bolus Route: IV; Rate: 1 aa5 bolus; Site: left antecubital; 09:50 Follow up: IV Status: Completed infusion; IV Intake: 1000ml aa5 08:30 Drug: Ondansetron IVP 8 mg IVP once; over 2 minutes Route: IVP; Site: left antecubital; aa5 09:00 Follow up: Response: No adverse reaction aa5 08:32 Drug: HYDROmorphone IVP 1 mg IVP once Route: IVP; Site: left antecubital; aa5 09:00 Follow up: Response: No adverse reaction; Pain is decreased aa5 11:19 Drug: metroNIDAZOLE IVPB 500 mg 100 ml IVPB at 200 ml/hr once over 30 mins Volume: 100 mb9 ml; Route: IVPB; Rate: 200 ml/hr; Infused Over: 30 mins; Site: left antecubital; 12:00 Follow up: Response: No adverse reaction; IV Status: Completed infusion mb9 12:00 Drug: Ciprofloxacin IVPB 400 mg 200 ml IVPB once over 60 mins Volume: 200 ml; Route: mb9 IVPB; Infused Over: 60 mins; Site: left antecubital; 12:58 Follow up: Response: No adverse reaction; IV Status: Completed infusion mb9 12:12 Not Given (Patient Refused): hydromorphone1 mg IVP once mb9 Disposition Summary: 10/20/23 12:34 Discharge Ordered Notes: Location: Home gerard Problem: new gerard Condition: Stable gerard Diagnosis - Noninfective gastroenteritis and colitis, unspecified gerard - Abdominal tenderness gerard Followup: gerard - With: Private Physician - When: 2 - 3 days - Reason: Recheck today's complaints, Continuance of care, Re-evaluation by your physician Followup: gerard - With: Eileen Ray MD - When: 2 - 3 days - Reason: Recheck today's complaints, Re-evaluation by your physician Discharge Instructions: - Discharge Summary Sheet gerard - Abdominal Pain, Adult gerard - Food Choices to Help Relieve Diarrhea, Adult gerard - Abdominal Pain, Adult, [id number] gerard - Diarrhea, Adult, [id number] gerard - Colitis gerard Forms: - Medication Reconciliation Form gerard - Thank You Letter gerard - Antibiotic Education gerard - Prescription Opioid Use gerard - Patient Portal Instructions gerard - Leadership Thank You Letter gerard - Work release form hb Prescriptions: - ondansetron 4 mg Oral Tablet,disintegrating - take 1 tablet ORAL route every 6-8 hours for 5 days as needed for nausea and gerard vomiting; 20 tablet; Refills: 0, Product Selection Permitted - Flagyl 500 mg Oral tablet - take 1 tablet ORAL route every 8 hours for 7 days; 30 tablet; Refills: 0, [facility] Product Selection Permitted - Pepcid 20 mg Oral tablet - take 1 tablet ORAL route every 12 hours for 21 days; 42 tablet; Refills: 0, [facility] Product Selection Permitted - Cipro 500 mg Oral Tablet - take 1 tablet ORAL route every 12 hours for 7 days; 14 tablet; Refills: 0, [facility] Product Selection Permitted Signatures: Dispatcher [employer] Rodo Tavares MD MD cha Calderon, Audri RN RN aa5 Joyce Dwo RN RN mb9
--- NOTE | 2023-10-20 12:34 | ER ---
Nurse's Notes [facility] Name: Marya Dodson Age: 53 yrs Sex: Female : 1970 Arrival Date: 10/20/2023 Time: 08:02 Bed 8 Private MD: Diagnosis: Noninfective gastroenteritis and colitis, unspecified;Abdominal tenderness Presentation: 10/19 08:03 Chief complaint: Patient states: lower abd pain since this morning with nausea/vomiting.aa5 08:03 Coronavirus screen: nausea, vomiting. Ebola Screen: Patient denies travel to an aa5 Ebola-affected area in the 21 days before illness onset. Initial Sepsis Screen: Does the patient meet any 2 criteria? No. Patient's initial sepsis screen is negative. Does the patient have a suspected source of infection? No. Patient's initial sepsis screen is negative. Risk Assessment: Do you want to hurt yourself or someone else? Patient reports no desire to harm self or others. Onset of symptoms was October 20, 2023. 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 - Social history:: Smoking status: Patient denies any tobacco usage or history of. Screenin:15 [facility] ED Fall Risk Assessment (Adult) History of falling in the last 3 months, aa5 including since admission No falls in past 3 months (0 pts) Confusion or Disorientation No (0 pts) Intoxicated or Sedated No (0 pts) Impaired Gait No (0 pts) Mobility Assist Device Used No (0 pt) Altered Elimination No (0 pt) Score/Fall Risk Level 0 - 2 = Low Risk Oriented to surroundings, Maintained a safe environment, Educated pt \T\ family on fall prevention, incl call for assistance when getting out of bed. Abuse screen: Denies threats or abuse. Nutritional screening: No deficits noted. Tuberculosis screening: No symptoms or risk factors identified. Assessment: 08:03 General: Appears uncomfortable, Behavior is restless, uncooperative. Pain: Complains of aa5 pain in right lower quadrant and left lower quadrant Pain currently is 10 out of 10 on a pain scale. Quality of pain is described as sharp, Pain began 2 hours ago. Is continuous, Noted to be guarding, moaning, restless. Neuro: Level of Consciousness is awake, alert, obeys commands, Oriented to person, place, time, situation. Cardiovascular: Heart tones S1 S2 present Rhythm is regular. Respiratory: Airway is patent Respiratory effort is even, unlabored, Respiratory pattern is regular, symmetrical, tachypnea. GI: Abdomen is flat, non-distended, Bowel sounds present X 4 quads. Abdomen is tender to palpation in right lower quadrant and left lower quadrant Reports nausea, vomiting. : No signs and/or symptoms were reported regarding the genitourinary system. EENT: No signs and/or symptoms were reported regarding the EENT system. Derm: Skin is dry, Skin is normal, Skin temperature is warm. Musculoskeletal: Range of motion: intact in all extremities. 09:00 Reassessment: Patient states feeling better. General: Appears comfortable, Behavior is aa5 calm, cooperative. Neuro: Level of Consciousness is awake, alert, obeys commands, Oriented to person, place, time, situation. Respiratory: Airway is patent Respiratory effort is even, unlabored, Respiratory pattern is regular, symmetrical. Derm: Skin is dry, Skin is normal, Skin temperature is warm. 10:00 Reassessment: Pt helped back in bed, pt currently resting in bed with eyes closed, pt's aa5 at bedside. . 11:30 Reassessment: No changes from previously documented assessment. Patient and/or family mb9 updated on plan of care and expected duration. Pain level reassessed. Patient is alert, oriented x 3, equal unlabored respirations, skin warm/dry/pink. 12:34 Reassessment: Discharge pending completion of IV antibiotics. mb9 12:42 Reassessment: Patient and/or family updated on plan of care and expected duration. Pain mb9 level reassessed. Patient is alert, oriented x 3, equal unlabored respirations, skin warm/dry/pink. Patient states feeling better. Patient states symptoms have improved. Vital Signs: 08:03 BP 172 / 100; Pulse 70; Resp 24 S; Temp 98(TE); Pulse Ox 100% on R/A; Pain 10/10; aa5 09:10 BP 149 / 97 Supine; Pulse 69; Resp 16; Pulse Ox 100% on R/A; Pain 5/10; zm 10:18 BP 138 / 90; Pulse 68; Resp 18; Temp 98.2(O); Pulse Ox 100% on R/A; mb9 11:31 BP 128 / 87; Pulse 70; Resp 16; Temp 98.1(O); Pulse Ox 100% ; mb9 12:42 BP 129 / 88; Pulse 69; Resp 16; Pulse Ox 100% on R/A; Pain 0/10; mb9 08:03 Pain Scale: Adult aa5 09:10 Pain Scale: Adult zm 12:42 Pain Scale: Adult mb9 ED Course: 08:03 Patient arrived in ED. eb 08:03 Patient has correct armband on for positive identification. Placed in gown. Bed in low aa5 position. Call light in reach. Side rails up X 1. Adult w/ patient. Arm band placed on. 08:05 Rodo Cornejo MD is Attending Physician. gerard 08:09 Tricia Guerra, RN is Primary Nurse. aa5 08:10 Triage completed. aa5 08:15 Client placed on continuous cardiac and pulse oximetry monitoring. NIBP monitoring hb applied. case monitor on. Pulse ox on. NIBP on. 08:28 Initial lab(s) drawn, by wv, sent to lab. Inserted saline lock: 20 gauge in left aa5 antecubital area, using aseptic technique. Blood collected. 08:57 EKG done, by interventional radiology technologist. reviewed by Rodo Cornejo MD. zm 09:04 XRAY Chest (1 view) In Process Unspecified. EDMS 09:28 CT Abd/Pelvis - IV Contrast Only In Process Unspecified. EDMS 09:50 Assisted to bathroom. aa5 09:50 Urine collected: clean catch specimen, clear, sent to lab. aa5 10:00 Lights dimmed. Warm blanket given. aa5 10:05 Report received from VALARIE Clarke. mb9 10:10 Provided Education on: press call light when needing to use restroom. mb9 10:18 No provider procedures requiring assistance completed. mb9 12:33 Eileen Ray MD is Referral Physician. gerard 12:58 IV discontinued, intact, bleeding controlled, No redness/swelling at site. Pressure mb9 dressing applied. Administered Medications: 08:30 Drug: NS 0.9% IV 1000 ml IV at 1 bolus Per protocol; 1000 mL bolus Route: IV; Rate: 1 aa5 bolus; Site: left antecubital; 09:50 Follow up: IV Status: Completed infusion; IV Intake: 1000ml aa5 08:30 Drug: Ondansetron IVP 8 mg IVP once; over 2 minutes Route: IVP; Site: left antecubital; aa5 09:00 Follow up: Response: No adverse reaction aa5 08:32 Drug: HYDROmorphone IVP 1 mg IVP once Route: IVP; Site: left antecubital; aa5 09:00 Follow up: Response: No adverse reaction; Pain is decreased aa5 11:19 Drug: metroNIDAZOLE IVPB 500 mg 100 ml IVPB at 200 ml/hr once over 30 mins Volume: 100 mb9 ml; Route: IVPB; Rate: 200 ml/hr; Infused Over: 30 mins; Site: left antecubital; 12:00 Follow up: Response: No adverse reaction; IV Status: Completed infusion mb9 12:00 Drug: Ciprofloxacin IVPB 400 mg 200 ml IVPB once over 60 mins Volume: 200 ml; Route: mb9 IVPB; Infused Over: 60 mins; Site: left antecubital; 12:58 Follow up: Response: No adverse reaction; IV Status: Completed infusion mb9 12:12 Not Given (Patient Refused): hydromorphone1 mg IVP once mb9 Medication: 09:39 VIS not applicable for this client. aa5 Intake: 09:50 IV: 1000ml; Total: 1000ml. aa5 Outcome: 12:34 Discharge ordered by . gerard 12:58 Discharged to home ambulatory, mb9 12:58 Condition: stable 12:58 Discharge instructions given to patient, family, Instructed on discharge instructions, follow up and referral plans. Demonstrated understanding of instructions, follow-up care, medications, Prescriptions given X 4, 12:59 Patient left the ED. mb9 Signatures: Dispatcher [employer] Rodo Tavares MD MD cha Calderon, Audri, RN RN aa5 Ingrid Deshpande RN RN hb Botello, Elizabeth eb Martinez, Zaina zm Breneman, Joyce Del Castillo RN RN mb9 Corrections: (The following items were deleted from the chart) 08:36 08:09 Arm band placed on aa5 aa5 08:36 08:09 Patient has correct armband on for positive identification. Placed in gown. Bed aa5 in low position. Call light in reach. Side rails up X 1. Adult w/ patient. aa5 10:20 10:18 Pulse 68bpm; Resp 18bpm; Pulse Ox 100% RA; Temp 98.2F Oral; mb9 mb9
[2023-10-20 13:35] VITALS: BP 129/88; TEMP 98.1; O2SAT 100
== END ==
LOC: ER 08:02
DX: K52.9 Noninfective gastroenteritis and colitis, unspecified (principal); I10 Essential (primary) hypertension
CPT/HCPCS: 36415; 71045; 74177; 80053; 81001; 82248; 83690; 83735; 83880; 84484; 85025; 85610; 93005; 96361; 96365; 96367; 96375; 99285; J0744; J1170; J2405; J7030; Q9967

== ENCOUNTER → 2023-10-24 | Emergency (ER) | payer SELFPAY ==
[~2023-10-24] MED LIST changes: -CIPROFLOXACIN 400mg IV 400 MG/200 ML BAG IV ONE; +DICYCLOMINE HCL 20 MG/2 ML AMP IM ONE; +MAGNESIUM CITRATE 300 ML BOT ONE; -METRONIDAZOLE 500mg IVPB 500 MG/100 ML BAG IV ONE; +MORPHINE 4 MG/ML SYR ONE; +ONDANSETRON 4 MG (ODT) TAB ONE
--- OUTSIDE RECORDS SUMMARY | 2023-10-24 07:30 | XMS REPORT | Continuity of Care Document ---
Author Name Unknown Address [address] [facility] [address] [place] [address] [facility] thconnect Address [address] [facility] [place] [address] Care Team Providers Care Manager Of Finance Name Role Phone Clarissa Suarez Attending Clinician Unavailable Cheryl Cruz Attending Clinician Unavailable Payers Payer Name Policy Type Policy Number Effective Date Expirati on Date Source [facility] Individual Exchange Benefit Plan [id number] [facility] Ambetter from [facility] [id number] 2020 00:00:00 [facility] Problems Condition Name Condition Details Condition Category Status Onset Date Resolution Date Last Treatment Date Treating Clinician Comments Source [id number] Mild major depression Problem [facility] Pure hyperchole sterolemia Pure hyperchole sterolemia Problem [facility] [id number] Decreased vision in both eyes Problem [facility] [id number] Cataract of both eyes, unspecifie d cataract type Problem [facility] [id number] Primary insomnia Problem [facility] [id number] Depression with anxiety Problem [facility] [id number] Essential hypertensi on Problem [facility] Chronic fatigue syndrome Chronic fatigue Problem [facility] [id number] Gastroesop hageal reflux disease, esophagiti s presence not specified Problem [facility] [id number] Irritable bowel syndrome, unspecifie d type Problem [facility] Social History Social Habit Start Date Stop Date Quantity Comments Source History of Tobacco Use [facility] Sex Assigned At [facility] Smoking Status Start Date Stop Date Source Never Smoker [facility] Current Smoker 2022-08-10 00:00:00 [facility] Medications Ordered Medication Name Filled Medication Name [...] Yes Na Cruz 1 tablet at bedtime [facility] Citalopram Hydrobromid e Citalopram Hydrobromid e 2020-0 8-17 00:00: 00 Yes Na Cruz 1 tablet [facility] Pantoprazol e Sodium Pantoprazol e Sodium 2020-0 8-17 00:00: 00 Yes Na Cruz 1 tablet [facility] Citalopram Hydrobromid e 20 MG Citalopram Hydrobromid [...] Lisinopril Lisinopril Yes Na Cruz 1 tablet [facility] Omeprazole Omeprazole Yes Na Cruz 1 capsule 30 minutes before morning meal [facility] Pantoprazol e Sodium 40 MG Pantoprazol e [...] height 2023-08-22 15:40:00 66 [in_i] Commo n [facility] weight 2023-08-22 15:40:00 162.4 [lb_av] Co mmon [facility] temperature 2023-08-22 15:40:00 97.3 [degF] Com [facility] bmi 2023-08-22 15:40:00 26.21 kg/m2 Comm on [facility] oximetry 2023-08-22 15:40:00 96 % Commo n [facility] respiratory rate 2023-08-22 15:40:00 16 /min Common [facility] blood pressure systolic 2023-08-22 15:40:00 156 mm[Hg] Common [facility] blood pressure diastolic 2023-08-22 15:40:00 84 mm[Hg] Common [facility] height 2023-08-01 15:40:00 66 [in_i] Commo n [facility] weight 2023-08-01 15:40:00 157.8 [lb_av] Co mmon [facility] temperature 2023-08-01 15:40:00 97.2 [degF] Com [facility] bmi 2023-08-01 15:40:00 25.47 kg/m2 Comm on [facility] oximetry 2023-08-01 15:40:00 99 % Commo n [facility] respiratory rate 2023-08-01 15:40:00 16 /min Common [facility] blood pressure systolic 2023-08-01 15:40:00 136 mm[Hg] [facility] pressure diastolic 2023-08-01 15:40:00 74 mm[Hg] Common [facility] height 2023-07-04 14:20:00 66 [in_i] Commo n [facility] weight 2023-07-04 14:20:00 156 [lb_av] Comm on [facility] temperature 2023-07-04 14:20:00 97.3 [degF] Com mon [facility] bmi 2023-07-04 14:20:00 25.18 kg/m2 Comm on [facility] oximetry 2023-07-04 14:20:00 100 % Commo n [facility] respiratory rate 2023-07-04 14:20:00 16 /min [facility] blood pressure systolic 2023-07-04 14:20:00 152 mm[Hg] [facility] blood pressure diastolic 2023-07-04 14:20:00 86 mm[Hg] [facility] Encounters Start Date/Time End Date/Time Encounter Type Admission Type Attending [facility] Facility Care Department Encounter ID Source 2023-08-21 13:10:00 Outpatient Suarez, Clarissa STLMLC ST[facility] [id number] [facility] 2023-08-02 07:11:00 Outpatient Suarez, Clarissa STLMLC ST[facility]C [id number] [facility] 2023-08-01 15:30:01 Outpatient Suarez, Clarissa STLMLC STL[facility]C [id number] [facility] 2023-07-04 14:10:00 Outpatient Suarez, Clarissa STLMLC STL[facility]C [id number] [facility] 2023-06-20 13:27:00 Outpatient Suarez, Clarissa STLMLC STLMLC [id number] [facility] 2022-08-03 15:27:02 Outpatient Cruz, Na STLMLC STLMLC [id number] [facility] 2022-07-29 14:52:00 Outpatient Cruz, Na STLMLC STLMLC [id number] [facility] 2022-07-28 09:45:02 Outpatient Cruz, Na STLMLC STL[facility]C [id number] [facility] 2022-05-26 09:51:02 Outpatient Curz, Na STLMLC STLMLC [id number] [facility] 2022-05-25 09:34:00 Outpatient Cruz, Na STLMLC STLMLC [id number] [facility] 2022-05-20 10:37:02 Outpatient Cruz, Na STLMLC STLMLC [id number] [facility] 2022-04-28 12:47:02 Outpatient Cruz, Na STLMLC STLMLC [id number] [facility] 2022-04-27 10:10:01 Outpatient Cruz, Na STLMLC STLMLC [id number] [facility] 2021-09-08 12:59:19 Outpatient Cruz, Na STLMLC STLMLC [id number] [facility] 2021-09-08 12:58:09 Outpatient Cruz, Na STLMLC STLMLC [id number] [facility] 2021-09-08 12:03:16 Outpatient Cruz, Na STLMLC STLMLC [id number] [facility] 2021-09-08 12:02:58 Outpatient Cruz, Na STLMLC STLMLC [id number] [facility] 2021-09-08 11:44:03 Outpatient Cruz, Na STLMLC STLMLC [id number] [facility] 2021-09-08 11:39:57 Outpatient Cruz, Na STLMLC STLMLC [id number] [facility] 2021-09-08 11:38:14 Outpatient Cruz, Na STLMLC STLMLC [id number] [facility] 2023-08-22 00:00:00 2023-08-22 00:00:00 OFFICE VISIT ESTAB PT LEVEL 4 [facility]LMLC STLMLC [id number] [facility] 2023-08-01 00:00:00 2023-08-01 00:00:00 OFFICE VISIT ESTAB PT LEVEL 4 [facility] ST[facility]C [id number] [facility] 2023-07-04 00:00:00 2023-07-04 00:00:00 OFFICE VISIT ESTAB PT LEVEL 4 [facility]C STL[facility]C [id number] [facility] 2023-07-03 00:00:00 2023-07-03 00:00:00 (TEL) STLMLC STLMLC [id number] [facility] 2022-08-01 00:00:00 2022-08-01 00:00:00 OL DIG E/M SVC 11-20 MIN STLMLC STLMLC [id number] [facility] 2022-07-31 00:00:00 2022-07-31 00:00:00 (TEL) STLMLC STLMLC [id number] [facility] 2022-05-12 00:00:00 2022-05-12 00:00:00 (TEL) STLMLC STLMLC [id number] [facility] 2022-04-29 00:00:00 2022-04-29 00:00:00 OFFICE VISIT ESTAB PT LEVEL 4 STLMLC STLMLC [id number] [facility] 2021-05-19 00:00:00 2021-05-19 00:00:00 (TEL) STLMLC STLMLC [id number] [facility] 2020-12-16 00:00:00 2020-12-16 00:00:00 Outpatient [facility]LMLC ST[facility]C [id number] [facility] 2020-12-11 00:00:00 2020-12-11 00:00:00 Outpatient [facility]C ST[facility]C [id number] [facility] 2020-07-02 00:00:00 2020-07-02 00:00:00 Outpatient STLMLC ST[facility]C [id number] [facility] 2020-06-23 00:00:00 2020-06-23 00:00:00 Outpatient STLMLC STL[facility]C [id number] [facility] 2020-04-23 13:40:00 2020-04-23 13:40:00 Outpatient [facility] [id number] [facility] 2020-03-30 11:20:00 2020-03-30 11:20:00 Outpatient [facility] [id number] [facility] Results Test Description Test Time Test Comments Results Result Co mments Source TSH REFLEX TO FREE [id number] 00:00:00* Test Item Value Reference Range Interpretation Comme nts TSH REFLEX TO FREE T4 (test code = 05413-7) 1.430 UIU/ML See_Comment [Automated messa ge] The system which generated this result transmitted reference range: 0.400-4.100 UIU/ML. The reference range was not used to interpret this result as normal/abnormal. LIPID PANEL WITH REFLEX DIRECT [id number] 00:00:00* Test Item Value Reference Range Interpretation Comme nts CALC LDL CHOL (test code = 30032-9) 102 MG/DL See_Comment H [Automated messa ge] [...] normal/abnormal. RISK RATIO LDL/HDL (test code = 07146-9) 1.52 RATIO See_Comment [Automated message] The system [...] interpret this result as normal/abnormal. COMPREHENSIVE METABOLIC [id number] 00:00:00* Test Item Value Reference Range Interpretation [...] result as normal/abnormal. CALCIUM (test code = 43386-7) 9.9 MG/DL See_Comment [Automated messa ge] The [...] as normal/abnormal. CALC GLOBULIN (test code = 58612-2) 2.9 G/DL See_Comment [Automated messa ge] The [...] result as normal/abnormal. CHLORIDE (test code = 5-0) 105 MEQ/L See_Comment [Automated messa ge] The [...] normal/abnormal. eGFR (2020 CKD-EPI) (test code = 21185-8) 100 ML/MIN/1.73 See_Comment [Automated message] The system [...] to interpret this result as normal/abnormal. CULTURE, [id number] 00:00:00* Test Item Value Reference Range Interpretation Comme nts CULTURE, URINE (test code = 630-4) SPECIMEN NUMBER: [id number]
[2023-10-24 08:07] LABS: Absolute Lymphocytes (CBC) 1.4 K/uL (0.7-4.9); Basophils % 0.5 % (0-1.3); Eosinophils % 0.7 % (0-4.4); Hematocrit 36.8 % (36.0-45.0); Hemoglobin 11.9 g/dL (12.0-15.0); Lymphocytes % 35.2 % (15.3-44.8); MCV 86.6 fL (80-100); MPV 6.7 fL (7.6-11.3); Platelets 319 thou/uL (152-406); RBC Red Blood Cell Count 4.24 M/uL (3.86-4.86)
[2023-10-24 08:33] LABS: Albumin 3.8 g/dL (3.4-5.0); Albumin/Globulin Ratio 1.1 (1.1-1.8); Anion Gap 6.9 mEq/L (5.0-15.0); Bilirubin Total 0.6 mg/dL (0.2-1.0); Globulin 3.5 g/dL (2.3-3.5); Potassium 3.9 mEq/L (3.5-5.1); Protein, Total 7.3 g/dL (6.4-8.2)
--- NOTE | 2023-10-24 08:45 | RAD REPORT ---
EXAM DESCRIPTION: CT - Abdomen Pelvis W Contrast - 10/24/2023 8:14 am CLINICAL HISTORY: Abdominal pain COMPARISON: none. TECHNIQUE: Computed axial tomography of the abdomen pelvis was obtained. 100 cc Isovue-300 was admin istered intravenously. Oral contrast was not requested which limits evaluation of bowel and appendix All CT scans are performed using dose optimization technique as appropriate and may include automated exposure control or mA/KV adjustment according to patient size. FINDINGS: The liver, spleen, pancreas, adrenal and kidneys appear unremarkable. There is no evidence of diverticulitis. No evidence of colitis. Moderate amount of stool which is partially liquid is present throughout colon. Hysterectomy. No adnexal mass IMPRESSION: Moderate amount stool throughout the colon
--- NOTE | 2023-10-24 10:47 | EDPHYS ---
Physician Documentation [facility] Name: Marya Dodson Age: 53 yrs Sex: Female : 1970 Arrival Date: 10/24/2023 Time: 07:27 Bed 6 Private MD: ED Physician Daren Byrne HPI: 10/23 07:48 This 53 yrs old Black Female presents to ER via Wheelchair with complaints of Abdominal rn Pain. 07:48 The patient presents with abdominal pain right lower quadrant, in the left lower rn quadrant. Onset: The symptoms/episode began/occurred 4 day(s) ago. The symptoms do not radiate. Associated signs and symptoms: Pertinent positives: constipation, nausea, Pertinent negatives: blood in stools, fever. The symptoms are described as crampy, intermittent. Modifying factors: The symptoms are alleviated by nothing, the symptoms are aggravated by movement, touching the area. Severity of pain: At its worst the pain was moderate in the emergency department the pain is unchanged. The patient has been recently seen at the [facility] Emergency Department. Patient seen a few days ago for same complaint. Diagnosed with colitis and sent home. Was doing better but pain started back up last night and worsened this morning. Reports bilateral lower abdominal pain, crampy, now constant. Associated with nausea and constipation. No blood in stool. No fever.. Historical: - Allergies: 07:36 No Known Allergies; iw - PMHx: 07:36 GERD; Hypertension; iw - PSHx: 07:36 hysterectomy; iw - Immunization history:: Adult Immunizations unknown. - Family history:: not pertinent. - Social history:: Smoking status: Patient denies any tobacco usage or history of. - Hospitalizations: : No recent hospitalization is reported. ROS: 07:48 Constitutional: Negative for fever, chills, and weight loss, Cardiovascular: Negative rn for chest pain, palpitations, and edema, Respiratory: Negative for shortness of breath, cough, wheezing, and pleuritic chest pain, Abdomen/GI: Positive for abdominal pain and nausea, positive constipation MS/Extremity: Negative for injury and deformity, Skin: Negative for injury, rash, and discoloration, Neuro: Negative for headache, weakness, numbness, tingling, and seizure, Exam: 07:48 Constitutional: This is a well developed, well nourished patient who is awake, alert, rn appears uncomfortable, moaning and groaning Head/Face: Normocephalic, atraumatic. ENT: Dry mucous membranes Cardiovascular: Regular rate and rhythm. No pulse deficits. Respiratory: No increased work of breathing, no retractions or nasal flaring. Abdomen/GI: Soft, bilateral lower abdominal tenderness with guarding. Vital Signs: 07:34 Pulse 78; Resp 19; Temp 97.8; Pulse Ox 96% on R/A; Pain 10/10; iw 08:15 BP 171 / 111; Pulse 62; Resp 18; Pulse Ox 98% on R/A; db 08:30 BP 163 / 94; Pulse 56; Resp 18; Pulse Ox 97% on R/A; db 10:00 BP 169 / 101; Pulse 71; Resp 18; Pulse Ox 96% on R/A; db 10:30 BP 148 / 94; Pulse 56; Resp 16; Pulse Ox 96% on R/A; db 07:34 Pain Scale: Adult iw MDM: 07:29 Patient medically screened. rn 10:44 Differential diagnosis: appendicitis, bowel obstruction, diverticulitis, non-specific rn abd pain. Data reviewed: vital signs, nurses notes, lab test result(s), radiologic studies, CT scan, and as a result, I will discharge patient. Counseling: I had a detailed discussion with the patient and/or guardian regarding the historical points, exam findings, and any diagnostic results supporting the discharge/admit diagnosis, lab results, radiology results, the need for outpatient follow up. Special discussion: Based on the patient's Hx, exam, and Dx evaluation, there is no indication for emergent surgery or inpatient Tx. It is understood by the patient/guardian that if the Sx's persist or worsen they need to return immediately for re-evaluation. ED course: Patient feels much better, pain controlled, no acute findings and imaging or lab work. Colitis has resolved. Will discharge home with return precautions. 10/23 08:08 Order name: CBC with Automated Diff; Complete Time: 08:37 EDMS 10/23 08:33 Order name: Comprehensive Metabolic Panel; Complete Time: 08:37 EDMS 10/23 08:33 Order name: Lipase; Complete Time: 08:37 EDMS 10/23 07:36 Order name: CT Abd/Pelvis - IV Contrast Only rn 10/23 08:45 Order name: CT; Complete Time: 09:14 EDMS 10/23 07:36 Order name: IV Saline Lock; Complete Time: 07:40 rn 10/23 07:36 Order name: Labs collected and sent; Complete Time: 07:40 rn Administered Medications: 07:43 Drug: NS 0.9% IV 1000 ml IV at 1 bolus Per protocol; 1000 mL bolus Route: IV; Rate: 1 db bolus; Site: right antecubital; 11:22 Follow up: Response: No adverse reaction; IV Status: Completed infusion; IV Intake: db 1000ml 07:45 Drug: Ondansetron IVP 4 mg IVP once; over 2 minutes Route: IVP; Site: right antecubital;db 08:50 Follow up: Response: No adverse reaction db 07:45 Drug: morphine IVP or IV 4 mg IVP once over 4 mins Route: IVP; Infused Over: 4 mins; db Site: right antecubital; 08:50 Follow up: Response: Pain is unchanged, physician notified db 08:45 Drug: HYDROmorphone IVP 1 mg IVP once Route: IVP; Site: right antecubital; db 11:22 Follow up: Response: No adverse reaction db 09:40 Drug: Dicyclomine IM 20 mg IM once Route: IM; Site: right ventrogluteal; db 11:22 Follow up: Response: No adverse reaction db 09:49 Drug: Magnesium Citrate PO Liquid 300 ml PO once; give half Route: PO; db 11:22 Follow up: Response: No adverse reaction db 11:10 Drug: Ondansetron PO 4 mg PO once Route: PO; db 11:22 Follow up: Response: No adverse reaction db Disposition Summary: 10/24/23 10:46 Discharge Ordered Notes: Location: Home rn Problem: new rn Symptoms: have improved rn Condition: Stable rn Diagnosis - Abdominal pain, unspecified rn - Constipation, unspecified rn Followup: rn - With: Private Physician - When: As needed - Reason: Recheck today's complaints, Re-evaluation by your physician Discharge Instructions: - Discharge Summary Sheet rn - Abdominal Pain, Adult rn - Constipation, Adult rn Forms: - Medication Reconciliation Form rn - Thank You Letter rn - Antibiotic cornice maker - Prescription Opioid Use rn - Patient Portal Instructions rn - Leadership Thank You Letter rn - Work release form db Signatures: Dispatcher [employer] EDMS Juan Pablo, Nicci, RN RN iw Byrne, Daren, MD MD rn Gallegos, Lucina, RN RN db
--- NOTE | 2023-10-24 10:47 | ER ---
Nurse's Notes [facility] Name: Marya Dodson Age: 53 yrs Sex: Female : 1970 Arrival Date: 10/24/2023 Time: 07:27 Bed 6 Private MD: Diagnosis: Abdominal pain, unspecified;Constipation, unspecified Presentation: 10/23 07:34 Chief complaint: Spouse and/or significant other states: pt was here on Monday , iw diagnosed with gastroenteritis , has been taking her meds but last night the pain came back, then it was worse this morning, c/o lower bad pain, nausea, no BM since , she took a laxative yesterday. Coronavirus screen: At this time, the client does not indicate any symptoms associated with coronavirus-19. Ebola Screen: Patient negative for fever greater than or equal to 101.5 degrees Fahrenheit, and additional compatible Ebola Virus Disease symptoms Patient denies exposure to infectious person. Patient denies travel to an Ebola-affected area in the 21 days before illness onset. No symptoms or risks identified at this time. Initial Sepsis Screen: Does the patient meet any 2 criteria? No. Patient's initial sepsis screen is negative. Does the patient have a suspected source of infection? No. Patient's initial sepsis screen is negative. Risk Assessment: Do you want to hurt yourself or someone else? Patient reports no desire to harm self or others. Onset of symptoms was October 23, 2023. 07:34 Method Of Arrival: Wheelchair iw 07:34 Acuity: FELI 3 iw Triage Assessment: 10:00 General: Appears in no apparent distress. comfortable, Behavior is calm, cooperative. db Pain: Denies pain. Neuro: Level of Consciousness is awake, alert, obeys commands, Oriented to person, place, time, situation. Respiratory: Airway is patent Respiratory effort is even, unlabored, Respiratory pattern is regular, symmetrical. Historical: - Allergies: 07:36 No Known Allergies; iw - PMHx: 07:36 GERD; Hypertension; iw - PSHx: 07:36 hysterectomy; iw - Immunization history:: Adult Immunizations unknown. - Family history:: not pertinent. - Social history:: Smoking status: Patient denies any tobacco usage or history of. - Hospitalizations: : No recent hospitalization is reported. Screenin:24 [facility] ED Fall Risk Assessment (Adult) History of falling in the last 3 months, db including since admission No falls in past 3 months (0 pts) Confusion or Disorientation No (0 pts) Intoxicated or Sedated No (0 pts) Impaired Gait No (0 pts) Mobility Assist Device Used No (0 pt) Altered Elimination No (0 pt) Score/Fall Risk Level 0 - 2 = Low Risk Oriented to surroundings, Maintained a safe environment. Abuse screen: Denies threats or abuse. Denies injuries from another. Nutritional screening: No deficits noted. Nutritional screening: No deficits noted. Tuberculosis screening: No symptoms or risk factors identified. Assessment: 07:40 Reassessment: Patient and/or family updated on plan of care and expected duration. Pain db level reassessed. Patient is alert, oriented x 3, equal unlabored respirations, skin warm/dry/pink. General: Appears in no apparent distress. uncomfortable, Behavior is cooperative, anxious. Pain: Complains of pain in abdomen. Neuro: Level of Consciousness is awake, alert, obeys commands, Oriented to person, place, time, situation. GI: unable to assess pt is yelling and moving in pain Abd is soft Abdomen is tender to palpation. 08:00 Reassessment: Patient appears in no apparent distress at this time. Patient and/or db family updated on plan of care and expected duration. Pain level reassessed. Patient is alert, oriented x 3, equal unlabored respirations, skin warm/dry/pink. Pain: Complains of pain in abdomen Pain currently is 10 out of 10 on a pain scale. 08:06 Reassessment: PT TO CT. db 08:40 Reassessment: PT WHEELED TO RESTROOM. PT REQUESTING STRONGER PAIN MEDICATION. STATES db MORPHINE DID NOT HELP PAIN. NOTIFIED DR. BYRNE. SEE MAR FOR MEDICATION ORDER AND ADMINISTRATION. 09:00 Reassessment: Patient appears in no apparent distress at this time. Patient and/or db family updated on plan of care and expected duration. Pain level reassessed. Patient is alert, oriented x 3, equal unlabored respirations, skin warm/dry/pink. 10:00 Reassessment: Patient appears in no apparent distress at this time. Patient and/or db family updated on plan of care and expected duration. Pain level reassessed. Patient is alert, oriented x 3, equal unlabored respirations, skin warm/dry/pink. Patient states feeling better. Patient states symptoms have improved. 11:10 Reassessment: Patient appears in no apparent distress at this time. PATIENT COMPLAINED db OF NAUSEA ONCE SITTING IN WHEELCHAIR. NOTIFIED DR. BYRNE. SEE MAR FOR ZOFRAN 4MG PO ADMINISTRATION. Vital Signs: 07:34 Pulse 78; Resp 19; Temp 97.8; Pulse Ox 96% on R/A; Pain 10/10; iw 08:15 BP 171 / 111; Pulse 62; Resp 18; Pulse Ox 98% on R/A; db 08:30 BP 163 / 94; Pulse 56; Resp 18; Pulse Ox 97% on R/A; db 10:00 BP 169 / 101; Pulse 71; Resp 18; Pulse Ox 96% on R/A; db 10:30 BP 148 / 94; Pulse 56; Resp 16; Pulse Ox 96% on R/A; db 07:34 Pain Scale: Adult iw ED Course: 07:27 Patient arrived in ED. mg5 07:29 Daren Byrne MD is Attending Physician. rn 07:36 Triage completed. iw 07:37 Arm band placed on. iw 07:40 Lucina Gallegos, RN is Primary Nurse. db 07:40 Initial lab(s) drawn, by me, sent to lab. Inserted saline lock: 22 gauge in right db antecubital area, using aseptic technique. Blood collected. 08:24 Patient has correct armband on for positive identification. Bed in low position. Call db light in reach. Side rails up X 1. Pulse ox on. NIBP on. Warm blanket given. 10:30 Provided Education on: DISCHARGE. db 10:30 No provider procedures requiring assistance completed. db 11:00 IV discontinued, intact, bleeding controlled, No redness/swelling at site. db Administered Medications: 07:43 Drug: NS 0.9% IV 1000 ml IV at 1 bolus Per protocol; 1000 mL bolus Route: IV; Rate: 1 db bolus; Site: right antecubital; 11:22 Follow up: Response: No adverse reaction; IV Status: Completed infusion; IV Intake: db 1000ml 07:45 Drug: Ondansetron IVP 4 mg IVP once; over 2 minutes Route: IVP; Site: right antecubital;db 08:50 Follow up: Response: No adverse reaction db 07:45 Drug: morphine IVP or IV 4 mg IVP once over 4 mins Route: IVP; Infused Over: 4 mins; db Site: right antecubital; 08:50 Follow up: Response: Pain is unchanged, physician notified db 08:45 Drug: HYDROmorphone IVP 1 mg IVP once Route: IVP; Site: right antecubital; db 11:22 Follow up: Response: No adverse reaction db 09:40 Drug: Dicyclomine IM 20 mg IM once Route: IM; Site: right ventrogluteal; db 11:22 Follow up: Response: No adverse reaction db 09:49 Drug: Magnesium Citrate PO Liquid 300 ml PO once; give half Route: PO; db 11:22 Follow up: Response: No adverse reaction db 11:10 Drug: Ondansetron PO 4 mg PO once Route: PO; db 11:22 Follow up: Response: No adverse reaction db Medication: 08:24 VIS not applicable for this client. db Intake: 11:22 IV: 1000ml; Total: 1000ml. db Outcome: 10:46 Discharge ordered by . rn 11:10 Discharged to home via wheelchair, with family, db 11:10 Condition: stable 11:10 Discharge instructions given to patient, family, Instructed on discharge instructions, follow up and referral plans. 11:23 Patient left the ED. db Signatures: Nicci Almeida RN VALARIE iw Daren Byrne MD MD rn Benton, Danielle, RN RN db Gardner, [place] mg5 Corrections: (The following items were deleted from the chart) 08:24 08:09 BP 171 / 111; Pulse 62bpm; Resp 18bpm; Pulse Ox 98% RA; db db 11:18 07:40 Reassessment: Patient and/or family updated on plan of care and expected db duration. Pain level reassessed. Patient is alert, oriented x 3, equal unlabored respirations, skin warm/dry/pink. db
[2023-10-24 11:45] VITALS: BP 148/94; TEMP 97.8; O2SAT 96
== END ==
LOC: ER 07:27
DX: K59.00 Constipation, unspecified (principal)
CPT/HCPCS: 36415; 74177; 80053; 83690; 85025; J0500; J1170; J2405; J7030; Q0162; Q9967

== ENCOUNTER → 2023-10-25 | Emergency (ER) | payer SELFPAY ==
[~2023-10-25] MED LIST changes: +FLEET ENEMA ADULT PR ONE; -HYDROMORPHONE HCL 1 MG/ML INJ ONE; +LACTULOSE 20 GM/30 ML UCUP ONE; -MAGNESIUM CITRATE 300 ML BOT ONE; +METOCLOPRAMIDE 5 MG TAB ONE; -MORPHINE 4 MG/ML SYR ONE; -ONDANSETRON 4 MG (ODT) TAB ONE; -ONDANSETRON 4 MG/2 ML VIAL ONE; +PROMETHAZINE 25 MG TABLET ONE; +PROMETHAZINE INJ 25 MG/ML AMP ONE; +TRAMADOL HCL 50 MG TAB ONE
--- OUTSIDE RECORDS SUMMARY | 2023-10-25 16:16 | XMS REPORT | Continuity of Care Document ---
Author Name Unknown Address [address] [place] [address] [facility] thconnect Address [address] [place] [address] Care Team Providers Care Supervisor [employer] Name Role Phone Clarissa Suarez Attending Clinician Unavailable Cheryl Cruz Attending Clinician Unavailable Payers Payer Name Policy Type Policy Number Effective Date Expirati on Date Source [facility] Individual Exchange Benefit Plan [id number] [facility] Ambetter from [facility] [id number] 2020 00:00:00 [facility] Problems Condition Name Condition Details Condition Category Status Onset Date Resolution Date Last Treatment Date Treating Clinician Comments Source [id number] Mild major depression Problem [facility] Pure hyperchole sterolemia Pure hyperchole sterolemia Problem [facility] [id number] Decreased vision in both eyes Problem [facility] [id number] Cataract of both eyes, unspecifie d cataract type Problem [facility] [id number] Primary insomnia Problem [facility] [id number] Depression with anxiety Problem [facility] [id number] Essential hypertensi on Problem [facility] Chronic fatigue syndrome Chronic fatigue Problem [facility] [id number] Gastroesop hageal reflux disease, esophagiti s presence not specified Problem [facility] [id number] Irritable bowel syndrome, unspecifie d type Problem [facility] Social History Social Habit Start Date Stop Date Quantity Comments Source History of Tobacco Use [facility] Sex Assigned At [facility] Smoking Status Start Date Stop Date Source Never Smoker [facility] Current Smoker 2022-08-10 00:00:00 [facility] Medications Ordered Medication Name Filled Medication Name [...] Yes Na Cruz 1 tablet at bedtime [facility] Citalopram Hydrobromid e Citalopram Hydrobromid e 2020-0 8-17 00:00: 00 Yes Na Cruz 1 tablet [facility] Pantoprazol e Sodium Pantoprazol e Sodium 2019-0 8-17 00:00: 00 Yes Na Cruz 1 tablet [facility] Citalopram Hydrobromid e 20 MG Citalopram Hydrobromid [...] Lisinopril Lisinopril Yes Na Cruz 1 tablet [facility] Omeprazole Omeprazole Yes Na Cruz 1 capsule 30 minutes before morning meal [facility] Pantoprazol e Sodium 40 MG Pantoprazol e [...] height 2023-08-22 15:40:00 66 [in_i] Commo n [facility] weight 2023-08-22 15:40:00 162.4 [lb_av] Co mmon [facility] temperature 2023-08-22 15:40:00 97.3 [degF] Com mon [facility] bmi 2023-08-22 15:40:00 26.21 kg/m2 Comm on [facility] oximetry 2023-08-22 15:40:00 96 % Commo n [facility] respiratory rate 2023-08-22 15:40:00 16 /min Common [facility] blood pressure systolic 2023-08-22 15:40:00 156 mm[Hg] [facility] blood pressure diastolic 2023-08-22 15:40:00 84 mm[Hg] [facility] height 2023-08-01 15:40:00 66 [in_i] Commo n [facility] weight 2023-08-01 15:40:00 157.8 [lb_av] Co mmon [facility] temperature 2023-08-01 15:40:00 97.2 [degF] Com mon [facility] bmi 2023-08-01 15:40:00 25.47 kg/m2 Comm on [facility] oximetry 2023-08-01 15:40:00 99 % Commo n [facility] respiratory rate 2023-08-01 15:40:00 16 /min Common [facility] blood pressure systolic 2023-08-01 15:40:00 136 mm[Hg] [facility] blood pressure diastolic 2023-08-01 15:40:00 74 mm[Hg] [facility] height 2023-07-04 14:20:00 66 [in_i] Commo n [facility] weight 2023-07-04 14:20:00 156 [lb_av] Comm on [facility] temperature 2023-07-04 14:20:00 97.3 [degF] Com mon [facility] bmi 2023-07-04 14:20:00 25.18 kg/m2 Comm on [facility] oximetry 2023-07-04 14:20:00 100 % Commo n [facility] respiratory rate 2023-07-04 14:20:00 16 /min [facility] blood pressure systolic 2023-07-04 14:20:00 152 mm[Hg] [facility] blood pressure diastolic 2023-07-04 14:20:00 86 mm[Hg] [facility] Encounters Start Date/Time End Date/Time Encounter Type Admission Type Attending [facility] Facility Care Department Encounter ID Source 2023-08-21 13:10:00 Outpatient Suarez, Clarissa [facility] [id number] [facility] 2023-08-02 07:11:00 Outpatient Suarez, Clarissa [facility] [id number] [facility] 2023-08-01 15:30:01 Outpatient Suarez, Clarissa [facility] [id number] [facility] 2023-07-04 14:10:00 Outpatient Suarez, Clarissa [facility] [id number] [facility] 2023-06-20 13:27:00 Outpatient Suarez, Clarissa [facility] [id number] [facility] 2022-08-03 15:27:02 Outpatient Cruz, Na [facility] [id number] [facility] 2022-07-29 14:52:00 Outpatient Cruz, Na [facility] [id number] [facility] 2022-07-28 09:45:02 Outpatient Cruz, Na [facility] [id number] [facility] 2022-05-26 09:51:02 Outpatient Cruz, Na [facility] [id number] [facility] 2022-05-25 09:34:00 Outpatient Cruz, Na [facility] [id number] [facility] 2022-05-20 10:37:02 Outpatient Cruz, Na [facility] [id number] [facility] 2022-04-28 12:47:02 Outpatient Cruz, Na [facility] [id number] [facility] 2022-04-27 10:10:01 Outpatient Cruz, Na [facility] [id number] [facility] 2021-09-08 12:59:19 Outpatient Cruz, Na [facility] [id number] [facility] 2021-09-08 12:58:09 Outpatient Cruz, Na [facility] [id number] [facility] 2021-09-08 12:03:16 Outpatient Cruz, Na [facility] [id number] [facility] 2021-09-08 12:02:58 Outpatient Cruz, Na [facility] [id number] [facility] 2021-09-08 11:44:03 Outpatient Cruz, Na [facility] [id number] [facility] 2021-09-08 11:39:57 Outpatient Cruz, Na [facility] [id number] [facility] 2021-09-08 11:38:14 Outpatient Cruz, Na [facility] [id number] [facility] 2023-08-22 00:00:00 2023-08-22 00:00:00 OFFICE VISIT ESTAB PT LEVEL 4 [facility] [id number] [facility] 2023-08-01 00:00:00 2023-08-01 00:00:00 OFFICE VISIT ESTAB PT LEVEL 4 [facility] [id number] [facility] 2023-07-04 00:00:00 2023-07-04 00:00:00 OFFICE VISIT ESTAB PT LEVEL 4 [facility] [id number] [facility] 2023-07-03 00:00:00 2023-07-03 00:00:00 (TEL) [facility] [id number] [facility] 2022-08-01 00:00:00 2022-08-01 00:00:00 OL DIG E/M SVC 11-20 MIN [facility] [id number] [facility] 2022-07-31 00:00:00 2022-07-31 00:00:00 (TEL) [facility] [id number] [facility] 2022-05-12 00:00:00 2022-05-12 00:00:00 (TEL) [facility] [id number] [facility] 2022-04-29 00:00:00 2022-04-29 00:00:00 OFFICE VISIT ESTAB PT LEVEL 4 [facility] [id number] [facility] 2021-05-19 00:00:00 2021-05-19 00:00:00 (TEL) [facility] [id number] [facility] 2020-12-16 00:00:00 2020-12-16 00:00:00 Outpatient [facility] [id number] [facility] 2020-12-11 00:00:00 2020-12-11 00:00:00 Outpatient [facility] [id number] [facility] 2020-07-02 00:00:00 2020-07-02 00:00:00 Outpatient [facility] [id number] [facility] 2020-06-23 00:00:00 2020-06-23 00:00:00 Outpatient [facility] [id number] [facility] 2020-04-23 13:40:00 2020-04-23 13:40:00 Outpatient [facility] [id number] [facility] 2020-03-30 11:20:00 2020-03-30 11:20:00 Outpatient [facility] [id number] [facility] Results Test Description Test Time Test Comments Results Result Co mments Source TSH REFLEX TO FREE [id number] 00:00:00* Test Item Value Reference Range Interpretation Comme nts TSH REFLEX TO FREE T4 (test code = 77194-6) 1.430 UIU/ML See_Comment [Automated messa ge] The system which generated this result transmitted reference range: 0.400-4.100 UIU/ML. The reference range was not used to interpret this result as normal/abnormal. LIPID PANEL WITH REFLEX DIRECT [id number] 00:00:00* Test Item Value Reference Range Interpretation Comme nts CALC LDL CHOL (test code = 30837-0) 102 MG/DL See_Comment H [Automated messa ge] [...] normal/abnormal. RISK RATIO LDL/HDL (test code = 55107-1) 1.52 RATIO See_Comment [Automated message] The system [...] interpret this result as normal/abnormal. COMPREHENSIVE METABOLIC [id number] 00:00:00* Test Item Value Reference Range Interpretation [...] result as normal/abnormal. CALCIUM (test code = 91477-9) 9.9 MG/DL See_Comment [Automated messa ge] The [...] as normal/abnormal. CALC GLOBULIN (test code = 44637-9) 2.9 G/DL See_Comment [Automated messa ge] The system which generated this result transmitted reference range: 1.9-3.7 G/DL. The reference range was not used to interpret this result as normal/abnormal. CARBON DIOXIDE (test code = 1962-8) 28 MEQ/L See_Comment [Automated messa ge] The [...] normal/abnormal. eGFR (2020 CKD-EPI) (test code = 34676-9) 100 ML/MIN/1.73 See_Comment [Automated message] The system [...] to interpret this result as normal/abnormal. CULTURE, [id number] 00:00:00* Test Item Value Reference Range Interpretation Comme nts CULTURE, URINE (test code = 630-4) SPECIMEN NUMBER: [id number]
[2023-10-25 18:02] LABS: Absolute Lymphocytes (CBC) 1.8 K/uL (0.7-4.9); Absolute Monocytes 0.3 K/uL (0.1-1.3); Absolute Neutrophil 2.5 K/uL (1.8-8.0); Basophils % 0.3 % (0-1.3); Eosinophils % 0.5 % (0-4.4); Hematocrit 36.1 % (36.0-45.0); Lymphocytes % 38.4 % (15.3-44.8); MCH 28.2 pg (27.0-35.0); MCHC 33.1 g/dL (32.0-36.0); MCV 85.1 fL (80-100); MPV 6.4 fL (7.6-11.3); Monocytes % 6.1 % (3.3-12.3); Neutrophils % 54.7 % (41.7-73.7); Nucleated Red Blood Cells % 0.2 % (0-0); Platelets 335 thou/uL (152-406); RBC Red Blood Cell Count 4.24 M/uL (3.86-4.86); Red Cell Distribution Width 14.7 % (12.1-15.2)
[2023-10-25 18:23] LABS: Anion Gap 7.4 mEq/L (5.0-15.0); Bilirubin Total 0.8 mg/dL (0.2-1.0); Globulin 3.9 g/dL (2.3-3.5); Magnesium 2.2 mg/dL (1.6-2.4); Potassium 3.4 mEq/L (3.5-5.1); Protein, Total 7.9 g/dL (6.4-8.2)
--- NOTE | 2023-10-25 20:54 | EDPHYS ---
Physician Documentation [facility] Name: Marya Dodson Age: 53 yrs Sex: Female : 1970 Arrival Date: 10/25/2023 Time: 16:14 Bed IW1 Private MD: ED Physician Bubba Eddy HPI: 10/24 17:28 This 53 yrs old Black Female presents to ER via Ambulatory with complaints of Abdominal rt Pain. 17:28 Patient presents to the ED with abdominal pain. Patient was seen in the ED 2 times rt previously this week. Initially was diagnosed with colitis, prescribed Cipro and Flagyl. Was seen in the ED yesterday, both times having CT scans, was found of constipation. Patient states that the pain has continued to worsen, she has not had a bowel movement and even when she has bowel movement here yesterday was very little. Reports a cramping abdominal pain. Reports nausea, vomiting states she was unable to keep anything down by mouth. Symptoms are moderate in severity, no other aggravating alleviating factors.. Historical: - Allergies: 16:24 No Known Drug Allergies; ll1 - PMHx: 16:24 GERD; Hypertension; ll1 - PSHx: 16:24 hysterectomy; ll1 - Immunization history:: Adult Immunizations up to date. - Social history:: Smoking status: Patient denies any tobacco usage or history of. - Family history:: not pertinent. ROS: 17:28 Abdomen/GI: Positive for abdominal pain, nausea and vomiting, constipation, rt 17:47 Constitutional: Negative for fever, chills, and weight loss, Cardiovascular: Negative rt for chest pain, palpitations, and edema, Respiratory: Negative for shortness of breath, cough, wheezing, and pleuritic chest pain, MS/Extremity: Negative for injury and deformity, Skin: Negative for injury, rash, and discoloration, Neuro: Negative for headache, weakness, numbness, tingling, and seizure, Exam: 17:47 Constitutional: This is a well developed, well nourished patient who is awake, alert, rt and in no acute distress. Head/Face: Normocephalic, atraumatic. Chest/axilla: Normal chest wall appearance and motion. Nontender with no deformity. No lesions are appreciated. Cardiovascular: Regular rate and rhythm with a normal S1 and S2. No gallops, murmurs, or rubs. Normal PMI, no JVD. No pulse deficits. Respiratory: Lungs have equal breath sounds bilaterally, clear to auscultation and percussion. No rales, rhonchi or wheezes noted. No increased work of breathing, no retractions or nasal flaring. Skin: Warm, dry with normal turgor. Normal color with no rashes, no lesions, and no evidence of cellulitis. MS/ Extremity: Pulses equal, no cyanosis. Neurovascular intact. Full, normal range of motion. Neuro: Awake and alert, GCS 15, oriented to person, place, time, and situation. Cranial nerves II-XII grossly intact. Motor strength 5/5 in all extremities. Sensory grossly intact. Cerebellar exam normal. Normal gait. 17:47 Abdomen/GI: Tenderness diffusely without guarding, rebound, Vital Signs: 16:30 BP 151 / 104; Pulse 91; Resp 18; Temp 99; Pulse Ox 100% ; Weight 70.76 kg; Height 5 ft. ll1 6 in. ; Pain 10/10; 21:10 BP 146 / 96; Pulse 92; Resp 18; Temp 98.9; Pulse Ox 100% ; vc1 16:30 Body Mass Index 25.18 (70.76 kg, 167.64 cm) ll1 16:30 Pain Scale: Adult ll1 MDM: 16:32 Patient medically screened. rt 20:35 ED course: CT yesterday - CT - Abdomen Pelvis W Contrast - 10/24/2023 8:14 am CLINICAL sp4 HISTORY: Abdominal pain COMPARISON: none. TECHNIQUE: Computed axial tomography of the abdomen pelvis was obtained. 100 cc Isovue-300 was administered intravenously. Oral contrast was not requested which limits evaluation of bowel and appendix All CT scans are performed using dose optimization technique as appropriate and may include automated exposure control or mA/KV adjustment according to patient size. FINDINGS: The liver, spleen, pancreas, adrenal and kidneys appear unremarkable. There is no evidence of diverticulitis. No evidence of colitis. Moderate amount of stool which is partially liquid is present throughout colon. Hysterectomy. No adnexal mass IMPRESSION: Moderate amount stool throughout the colon. 20:49 Differential diagnosis: non-specific abd pain, IBS, constipation. Data reviewed: vital sp4 signs, nurses notes. Consideration of Admission/Observation Escalation of care including admission/observation considered. ED course: Patient has had CT abdomen pelvis yesterday 10/24/2023 that has revealed moderate amount of stool in the colon. There was a moderate amount of stool that is partially liquid in the colon. No reason for CT today. Patient will be prescribed GoLytely, Phenergan as needed for nausea and Bentyl as needed for crampy abdominal pain. He will be advised to see her doctor with gastroenterology Dr. Prieto for further evaluation in the office. Perhaps for Repeat Colonoscopy.. 10/24 16:41 Order name: CBC with Diff; Complete Time: 18:28 rt 10/24 16:41 Order name: CMP; Complete Time: 18:28 rt 10/24 16:41 Order name: Lipase; Complete Time: 18:28 rt 10/24 16:41 Order name: Magnesium; Complete Time: 18:28 rt Administered Medications: 18:17 Drug: Dicyclomine IM 20 mg IM once Route: IM; Site: Ventrogluteal LEFT; iw 21:11 Follow up: Response: No adverse reaction; No change in condition vc1 18:18 Drug: Lactulose PO 30 grams 45 ml PO once Volume: 45 ml; Route: PO; iw 21:11 Follow up: Response: No adverse reaction; No change in condition vc1 18:18 Drug: Promethazine IVP 12.5 mg IVP once Route: IVP; Site: right antecubital; iw 21:11 Follow up: Response: No adverse reaction; Nausea is decreased vc1 18:18 Drug: NS 0.9% IV 1000 ml IV at 1 bolus Per protocol; 1000 mL bolus Route: IV; Rate: 1 iw bolus; Site: right antecubital; 19:19 Follow up: IV Status: Completed infusion; IV Intake: 1000ml vc1 20:46 Not Given (Physician Discretion): fleet [id number] ml TN once; may repeat once vc1 20:59 Drug: traMADol PO 100 mg PO once Route: PO; vc1 21:08 Follow up: Response: Medication administered at discharge. vc1 21:00 Drug: Promethazine PO 25 mg PO once Route: PO; vc1 21:08 Follow up: Response: Medication administered at discharge. vc1 21:00 Drug: MetoCLOPramide PO 10 mg PO once Route: PO; vc1 21:08 Follow up: Response: Medication administered at discharge. vc1 21:08 Not Given (Physician Discretion): hyoscyamine0.125 mg 1 tabs Sublingual once vc1 Disposition Summary: 10/25/23 20:53 Discharge Ordered Notes: Please see your GI MD for additional assessment in the Office Location: Home sp4 Problem: new sp4 Symptoms: have improved sp4 Condition: Stable sp4 Diagnosis - Slow transit constipation sp4 - Abdominal pain, Generalized sp4 - Nausea sp4 Followup: sp4 - With: Min Prieto MD - When: 10 - 14 days - Reason: Recheck today's complaints Discharge Instructions: - Discharge Summary Sheet vc1 - Constipation, Adult, [id number] sp4 Forms: - Work release form vc1 Prescriptions: - Golytely 236-22.74-6.74 -5.86 gram Oral Recon Soln - take 50 milliliter ORAL route per package directions 1 cup every 30 min , sp4 Dispense one 4 L container; 4000 milliliter; Refills: 0, Product Selection Permitted - promethazine 25 mg Oral Tablet - take 1 tablet ORAL route every 6 hours As needed; 20 tablet; Refills: 0, sp4 Product Selection Permitted - dicyclomine 20 mg Oral tablet - take 1 tablet ORAL route every 6 hours PRN abdominal pain; 30 tablet; Refills: sp4 0, Product Selection Permitted Signatures: Dispatcher [employer] Nicci Horne, RN Jace Neri RN RN ll1 Michell Corrigan RN RN vc1 Sundar Bobby MD MD rt Bubba Eddy MD MD sp4
--- NOTE | 2023-10-25 20:54 | ER ---
Nurse's Notes [facility] Name: Marya Dodson Age: 53 yrs Sex: Female : 1970 Arrival Date: 10/25/2023 Time: 16:14 Bed IW1 Private MD: Diagnosis: Slow transit constipation;Abdominal pain, Generalized;Nausea Presentation: 10/24 16:30 Chief complaint: Patient states: Severe upper abdominal pain getting worse after each ll1 visit here (3rd). + bloating, no fever. Coronavirus screen: Client denies travel out of the [place] in the last 14 days. At this time, the client does not indicate any symptoms associated with coronavirus-19. Ebola Screen: Patient denies travel to an Ebola-affected area in the 21 days before illness onset. Initial Sepsis Screen: Does the patient meet any 2 criteria? No. Patient's initial sepsis screen is negative. Does the patient have a suspected source of infection? No. Patient's initial sepsis screen is negative. Risk Assessment: Do you want to hurt yourself or someone else? Patient reports no desire to harm self or others. Onset of symptoms was October 13, 2023. 16:30 Method Of Arrival: Ambulatory 1 16:30 Acuity: FELI 3 ll1 Triage Assessment: 21:06 General: Appears in no apparent distress. uncomfortable, Behavior is crying, fussy. vc1 Pain: Complains of pain in abdomen Pain does not radiate. Pain currently is 8 out of 10 on a pain scale. Alleviated by nothing. Also complains of constipation. EENT: No deficits noted. No signs and/or symptoms were reported regarding the EENT system. Neuro: No deficits noted. Cardiovascular: No deficits noted. Respiratory: Airway is patent Respiratory effort is even, unlabored, Respiratory pattern is regular, symmetrical. GI: Abd is soft Abdomen is tender to palpation X 4 quads. : No deficits noted. No signs and/or symptoms were reported regarding the genitourinary system. Derm: No deficits noted. No signs and/or symptoms reported regarding the dermatologic system. Musculoskeletal: No deficits noted. No signs and/or symptoms reported regarding the musculoskeletal system. Historical: - Allergies: 16:24 No Known Drug Allergies; ll1 - PMHx: 16:24 GERD; Hypertension; ll1 - PSHx: 16:24 hysterectomy; ll1 - Immunization history:: Adult Immunizations up to date. - Social history:: Smoking status: Patient denies any tobacco usage or history of. - Family history:: not pertinent. Screenin:00 [facility] ED Fall Risk Assessment (Adult) History of falling in the last 3 months, vc1 including since admission No falls in past 3 months (0 pts) Confusion or Disorientation No (0 pts) Intoxicated or Sedated No (0 pts) Impaired Gait No (0 pts) Mobility Assist Device Used No (0 pt) Altered Elimination No (0 pt) Score/Fall Risk Level 0 - 2 = Low Risk Oriented to surroundings, Maintained a safe environment, Educated pt \T\ family on fall prevention, incl call for assistance when getting out of bed. Abuse screen: Denies threats or abuse. Nutritional screening: No deficits noted. Tuberculosis screening: No symptoms or risk factors identified. Assessment: 21:10 General: See triage assessment. vc1 Vital Signs: 16:30 BP 151 / 104; Pulse 91; Resp 18; Temp 99; Pulse Ox 100% ; Weight 70.76 kg; Height 5 ft. ll1 6 in. ; Pain 10/10; 21:10 BP 146 / 96; Pulse 92; Resp 18; Temp 98.9; Pulse Ox 100% ; vc1 16:30 Body Mass Index 25.18 (70.76 kg, 167.64 cm) ll1 16:30 Pain Scale: Adult ll1 ED Course: 16:16 Patient arrived in ED. rg4 16:17 Sundar Bobby MD is Attending Physician. rt 16:24 Arm band placed on. ll1 16:31 Triage completed. ll1 17:56 Initial lab(s) drawn, by wy, sent to lab. Inserted saline lock: 22 gauge in right iw antecubital area, using aseptic technique. Blood collected. 20:03 Attending Physician role handed off by Sundar Bobby MD sp4 20:03 Bubba Eddy MD is Attending Physician. sp4 20:53 Min Prieto MD is Referral Physician. sp4 21:08 No provider procedures requiring assistance completed. IV discontinued, intact, vc1 bleeding controlled, No redness/swelling at site. Pressure dressing applied. 21:09 Pt discharged from Triage. Provided Education on: Stay close to commode. vc1 Administered Medications: 18:17 Drug: Dicyclomine IM 20 mg IM once Route: IM; Site: Ventrogluteal LEFT; iw 21:11 Follow up: Response: No adverse reaction; No change in condition vc1 18:18 Drug: Lactulose PO 30 grams 45 ml PO once Volume: 45 ml; Route: PO; iw 21:11 Follow up: Response: No adverse reaction; No change in condition vc1 18:18 Drug: Promethazine IVP 12.5 mg IVP once Route: IVP; Site: right antecubital; iw 21:11 Follow up: Response: No adverse reaction; Nausea is decreased vc1 18:18 Drug: NS 0.9% IV 1000 ml IV at 1 bolus Per protocol; 1000 mL bolus Route: IV; Rate: 1 iw bolus; Site: right antecubital; 19:19 Follow up: IV Status: Completed infusion; IV Intake: 1000ml vc1 20:46 Not Given (Physician Discretion): fleet [id number] ml [place] once; may repeat once vc1 20:59 Drug: traMADol PO 100 mg PO once Route: PO; vc1 21:08 Follow up: Response: Medication administered at discharge. vc1 21:00 Drug: Promethazine PO 25 mg PO once Route: PO; vc1 21:08 Follow up: Response: Medication administered at discharge. vc1 21:00 Drug: MetoCLOPramide PO 10 mg PO once Route: PO; vc1 21:08 Follow up: Response: Medication administered at discharge. vc1 21:08 Not Given (Physician Discretion): hyoscyamine0.125 mg 1 tabs Sublingual once vc1 Medication: 21:09 VIS not applicable for this client. vc1 Intake: 19:19 IV: 1000ml; Total: 1000ml. vc1 Outcome: 20:53 Discharge ordered by MD. haro 21:09 Discharged to home via wheelchair, with significant other, vc1 21:09 Condition: good 21:09 Discharge instructions given to patient, significant other, Instructed on discharge instructions, follow up and referral plans. medication usage, Demonstrated understanding of instructions, follow-up care, medications, Prescriptions given X 3, 21:11 Patient left the ED. vc1 Signatures: Nicci Almeida RN RN iw Una Roper rg4 Jace Varela RN RN ll1 Michell Corrigan RN RN vc1 Sundar Bobby MD MD rt Bubba Eddy MD MD sp4 Corrections: (The following items were deleted from the chart) 16:32 16:30 Pulse 91bpm; Resp 18bpm; Pulse Ox 100%; Temp 99F; 70.76 kg; Height 5 ft. 6 in.; ll1 BMI: 25.1; Pain 10/10, Adult; ll1
[2023-10-25 22:13] VITALS: BP 146/96; TEMP 98.9; O2SAT 100
== END ==
LOC: ER 16:14
DX: K59.01 Slow transit constipation (principal); R11.0 Nausea
CPT/HCPCS: 36415; 80053; 83690; 83735; 85025; J0500; J2550; J7030; Q0169

== ENCOUNTER 2024-09-05 10:34 | Emergency (ER) | payer OTHER, SELFPAY ==
--- OUTSIDE RECORDS SUMMARY | 2024-09-05 10:38 | XMS REPORT | Continuity of Care Document ---
Author Name Unknown Address [address] [facility] [address] [place] [address] [facility] thconnect Address [address] [facility] [place] [address] Care Team Providers Care [employer] Manager Name Role Phone Daniela Clarissa Attending Clinician Unavailable Cheryl Cruz Attending Clinician Unavailable Steven Armendariz APRN Attending Clinician Unakhurram ilable STEVEN ARMENDARIZ Admitting Clinician Unavailable Payers Payer Name Policy Type Policy Number Effective Date Expirati on Date Source [facility] Individual Exchange Benefit Plan [id number] [facility] Ambetter from [facility] [id number] 2020 00:00:00 [facility] Problems Condition Name Condition Details Condition Category Status Onset Date Resolution Date Last Treatment Date Treating Clinician Comments Source [id number] Mild major depression Problem [facility] Pure hyperchole sterolemia Pure hyperchole sterolemia Problem [facility] [id number] Decreased vision in both eyes Problem [facility] [id number] Cataract of both eyes, unspecifie d cataract type Problem [facility] [id number] Primary insomnia Problem [facility] [id number] Depression with anxiety Problem [facility] [id number] Essential hypertensi on Problem [facility] Chronic fatigue syndrome Chronic fatigue Problem [facility] [id number] Gastroesop hageal reflux disease, esophagiti s presence not specified Problem [facility] [id number] Irritable bowel syndrome, unspecifie d type Problem [facility] Social History Social Habit Start Date Stop Date Quantity Comments Source History of Tobacco Use [facility] Sex Assigned At [facility] Smoking Status Start Date Stop Date Source Never Smoker [facility] Current Smoker 2022-08-10 00:00:00 [facility] Medications Ordered Medication Name Filled Medication Name Start Date Stop Date Current Medication? Ordering Clinician Indication Dosage Frequency Signature (SIG) Comments Components Source Bentyl 10 MG Bentyl 10 MG 04-29 [...] Yes Na Cruz 1 tablet at bedtime [facility] Citalopram Hydrobromid e Citalopram Hydrobromid e 03-30 00:00: 00 Yes Na Cruz 1 tablet [facility] Pantoprazol e Sodium Pantoprazol e Sodium 2020-0 8-17 00:00: 00 Yes Na Cruz 1 tablet [facility] Citalopram Hydrobromid e 20 MG Citalopram Hydrobromid e 20 MG 2020-0 8-17 00:00: 00 No 1{table t} QD Citalopram Hydrobromi de 20 MG Citalopram Hydrobromid e 20 MG Citalopram Hydrobromid e 20 MG 2020-0 817 00:00: 00 No 1{table t} QD Citalopram Hydrobromi de 20 MG Citalopram Hydrobromid e 20 MG Citalopram Hydrobromid e 20 MG 2020-0 17 00:00: 00 No 1{table t} QD Citalopram Hydrobromi de 20 MG Citalopram Hydrobromid e 20 MG Citalopram Hydrobromid e 20 MG 2020-0 8- 00:00: 00 No 1{table t} QD Citalopram Hydrobromi de 20 MG Lisinopril Lisinopril Yes Na Cruz 1 tablet [facility] Omeprazole Omeprazole Yes Na Cruz 1 capsule 30 minutes before morning meal [facility] Pantoprazol e Sodium 40 MG Pantoprazol e [...] MG No Pantoprazo le Sodium 40 MG traZODone HCl 100 MG traZODone HCl 100 MG No 1{table t_at_be dtime} QD traZODone HCl 100 MG Lisinopril 10 MG Lisinopril 10 MG No Lisinopril 10 MG Pantoprazol e Sodium 40 MG Pantoprazol e Sodium 40 MG No Pantoprazo le Sodium 40 MG traZODone HCl [...] MG No Pantoprazo le Sodium 40 MG traZODone HCl 100 MG traZODone HCl 100 MG No 1{table t_at_be dtime} QD traZODone HCl 100 MG Lisinopril 10 MG Lisinopril 10 MG No Lisinopril 10 MG Pantoprazol e Sodium 40 MG Pantoprazol e Sodium 40 MG No Pantoprazo le Sodium 40 MG traZODone HCl 100 MG traZODone HCl 100 MG No 1{table t_at_be dtime} QD traZODone HCl 100 MG Lisinopril 10 MG Lisinopril 10 MG No Lisinopril 10 MG Zofran 4 MG Zofran 4 MG No BID Zo anibal 4 MG Pantoprazol e Sodium 40 MG Pantoprazol e Sodium 40 MG No Pantoprazo le Sodium 40 MG traZODone HCl 100 MG traZODone HCl 100 MG No 1{table t_at_be dtime} QD traZODone HCl 100 MG Lisinopril 10 MG Lisinopril 10 MG No Lisinopril 10 MG Zofran 4 MG Zofran 4 MG No BID Zo anibal 4 MG Vital Signs Vital Name Observation Time Observation Value Comments S ource height 2023-08-22 15:40:00 66 [in_i] Commo n [facility] weight 2023-08-22 15:40:00 162.4 [lb_av] Co [facility] temperature 2023-08-22 15:40:00 97.3 [degF] Com [facility] bmi 2023-08-22 15:40:00 26.21 kg/m2 Comm on [facility] oximetry 2023-08-22 15:40:00 96 % Commo n [facility] respiratory rate 2023-08-22 15:40:00 16 /min [facility] blood pressure systolic 2023-08-22 15:40:00 156 mm[Hg] [facility] blood pressure diastolic 2023-08-22 15:40:00 84 mm[Hg] [facility] height 2023-08-01 15:40:00 66 [in_i] Commo n [facility] weight 2023-08-01 15:40:00 157.8 [lb_av] Co [facility] temperature 2023-08-01 15:40:00 97.2 [degF] Com [facility] bmi 2023-08-01 15:40:00 25.47 kg/m2 Comm on [facility] oximetry 2023-08-01 15:40:00 99 % Commo n [facility] respiratory rate 2023-08-01 15:40:00 16 /min [facility] blood pressure systolic 2023-08-01 15:40:00 136 mm[Hg] [facility] blood pressure diastolic 2023-08-01 15:40:00 74 mm[Hg] [facility] height 2023-07-04 14:20:00 66 [in_i] Commo n [facility] weight 2023-07-04 14:20:00 156 [lb_av] Comm on [facility] temperature 2023-07-04 14:20:00 97.3 [degF] Com mon [facility] bmi 2023-07-04 14:20:00 25.18 kg/m2 Comm on [facility] oximetry 2023-07-04 14:20:00 100 % Commo n [facility] respiratory rate 2023-07-04 14:20:00 16 /min [facility] blood pressure systolic 2023-07-04 14:20:00 152 mm[Hg] [facility] blood pressure diastolic 2023-07-04 14:20:00 86 mm[Hg] [facility] Encounters Start Date/Time End Date/Time Encounter Type Admission Type Attending [facility] Care Facility Care Department Encounter ID Source 2024-02-27 11:08:00 Outpatient Daniela Clarissa [facility] [id number] [facility] 2023-08-21 13:10:00 Outpatient Clarissa Suarez [facility] [id number] [facility] 2023-08-02 07:11:00 Outpatient Clarissa Suarez [facility] [id number] [facility] 2023-08-01 15:30:01 Outpatient Clarissa Suarez [facility] [id number] [facility] 2023-07-04 14:10:00 Outpatient Clarissa Suarez [facility] [id number] [facility] 2023-06-20 13:27:00 Outpatient Clarissa Suarez [facility] [id number] [facility] 2022-08-03 15:27:02 Outpatient Cruz, Na [facility] [id number] [facility] 2022-07-29 14:52:00 Outpatient Cruz, Na [facility] [id number] [facility] 2022-07-28 09:45:02 Outpatient Cruz, Na [facility] [id number] [facility] 2022-05-26 09:51:02 Outpatient Cruz, Na [facility] [id number] [facility] 2022-05-25 09:34:00 Outpatient Cruz, Na [facility] ST[facility] [id number] [facility] 2022-05-20 10:37:02 Outpatient Cruz, Na [facility] ST[facility] [id number] [facility] 2022-04-28 12:47:02 Outpatient Cruz, Na [facility] ST[facility] [id number] [facility] 2022-04-27 10:10:01 Outpatient Cruz, Na [facility] ST[facility] [id number] [facility] 2021-09-08 12:59:19 Outpatient Cruz, Na [facility] [id number] [facility] 2021-09-08 12:58:09 Outpatient Cruz, Na [facility] [id number] [facility] 2021-09-08 12:03:16 Outpatient Cruz, Na [facility] ST[facility] [id number] [facility] 2021-09-08 12:02:58 Outpatient Cruz, Na [facility] [id number] [facility] 2021-09-08 11:44:03 Outpatient Cruz, Na [facility] [id number] [facility] 2021-09-08 11:39:57 Outpatient Cruz, Na [facility] [id number] [facility] 2021-09-08 11:38:14 Outpatient Cruz, Na [facility] [id number] [facility] 2024-05-20 08:00:00 2024-05-20 08:00:00 Outpatient CARLOS Zapataluanajose Steven [facility] [id number] [address] [facility] 2023-08-22 00:00:00 2023-08-22 00:00:00 OFFICE VISIT ESTAB PT LEVEL 4 [facility] ST[facility] [id number] [facility] 2023-08-01 00:00:00 2023-08-01 00:00:00 OFFICE VISIT ESTAB PT LEVEL 4 [facility] [id number] [facility] 2023-07-04 00:00:00 2023-07-04 00:00:00 OFFICE VISIT ESTAB PT LEVEL 4 [facility] [id number] [facility] 2023-07-03 00:00:00 2023-07-03 00:00:00 (TEL) [facility] [id number] [facility] 2022-08-01 00:00:00 2022-08-01 00:00:00 OL DIG E/M SVC 11-20 MIN [facility] ST[facility]C [id number] [facility] 2022-07-31 00:00:00 2022-07-31 00:00:00 (TEL) [facility] [id number] [facility] 2022-05-12 00:00:00 2022-05-12 00:00:00 (TEL) [facility] [id number] [facility] 2022-04-29 00:00:00 2022-04-29 00:00:00 OFFICE VISIT ESTAB PT LEVEL 4 [facility] [id number] [facility] 2021-05-19 00:00:00 2021-05-19 00:00:00 (TEL) [facility] [id number] [facility] 2020-12-16 00:00:00 2020-12-16 00:00:00 Outpatient [facility] [id number] [facility] 2020-12-11 00:00:00 2020-12-11 00:00:00 Outpatient [facility] [id number] [facility] 2020-07-02 00:00:00 2020-07-02 00:00:00 Outpatient [facility] [id number] [facility] 2020-06-23 00:00:00 2020-06-23 00:00:00 Outpatient [facility] [id number] [facility] 2020-04-23 13:40:00 2020-04-23 13:40:00 Outpatient [facility] [id number] [facility] 2020-03-30 11:20:00 2020-03-30 11:20:00 Outpatient [facility] [id number] [facility] Results Test Description Test Time Test Comments Results Result Co mments Source CULTURE, [id number] 00:00:00* Test Item Value Reference Range Interpretation Comme nts CULTURE, URINE (test code = 630-4) SPECIMEN NUMBER: [id number]
--- NOTE | 2024-09-05 11:59 | RAD REPORT ---
EXAM: CT brain without contrast HISTORY: Headache COMPARISON: None TECHNIQUE: Multiple contiguous axial images were obtained and a CT of the brain without contrast.. Sagittal and coronal reconstruction performed. Automated exposure control, adjustment of the mA and/or kV according to patient size, and/or iterative reconstruction. Unless otherwise specified, incidental f indings do not require dedicated imaging follow-up FINDINGS: An intracranial bleed is not seen Ventricles are normal caliber No extra-axial fluid collection noted No significant hypodensity within the brain No fluid within the visualized sinuses or mastoids noted. IMPRESSION: No acute intracranial abnormality noted. If the patient continues to have symptoms to suggest an acute intracranial abnormality then MRI of th e brain would be recommended.
--- NOTE | 2024-09-05 12:04 | RAD REPORT ---
EXAM:Thorax Wo Con CLINICAL INDICATION: Chest pain TECHNIQUE: CT chest performed.. Axial, sagittal and coronal reconstructions were obtained. One or mor e of the following dose reduction techniques were used: Automated exposure control, adjustment of the mA and/or kV according to the patient size, and/or iterative reconstruction. Unless otherwise specified, incidental findings do not require dedicated imaging follow-up. [id number]. COMPARISON: None FINDINGS: Mild subpleural nodularity involves each lung. Otherwise, lungs are essentially clear. No mediastinal or hilar lymphadenopathy No pleural effusion. No pericardial effusion IMPRESSION: Mild subpleural nodularity involves each lung very likely benign. Follow-up unenhanced CT chest in on e year recommended for reevaluation
[2024-09-05] MEDS ORDERED: METOCLOPRAMIDE 10 MG/2mL INJ ONE (12:28)
[2024-09-05] MEDS ORDERED: DIPHENHYDRAMINE 50 MG/ML VIAL ONE (12:28)
[2024-09-05] MEDS ORDERED: ACETAMINOPHEN 500 MG TAB ONE (12:28)
[2024-09-05] MEDS ORDERED: NA CHLORIDE 0.9% 1,000 ML ONE (12:29)
[2024-09-05 12:43] LABS: Absolute Eosinophils 0.1 K/uL (0-0.5); Absolute Lymphocytes (CBC) 1.5 K/uL (0.7-4.9); Absolute Monocytes 0.3 K/uL (0.1-1.3); Absolute Neutrophil 2.7 K/uL (1.8-8.0); Basophils % 0.5 % (0-1.3); Eosinophils % 1.7 % (0-4.4); Hematocrit 37.2 % (36.0-45.0); Hemoglobin 12.2 g/dL (12.0-15.0); Lymphocytes % 32.3 % (15.3-44.8); MCH 27.6 pg (27.0-35.0); MCHC 32.7 g/dL (32.0-36.0); MCV 84.3 fL (80-100); Neutrophils % 59.5 % (41.7-73.7); Nucleated Red Blood Cells % 0.1 % (0-0); Platelets 319 thou/uL (152-406); RBC Red Blood Cell Count 4.42 M/uL (3.86-4.86); Red Cell Distribution Width 14.1 % (12.1-15.2)
[2024-09-05 12:52] LABS: ALT/SGPT 19 U/L (13-56); AST/SGOT 17 U/L (15-37); Albumin 3.8 g/dL (3.4-5.0); Alkaline Phosphatase 87 U/L (45-117); Anion Gap 6.6 mEq/L (5.0-15.0); BUN Blood Urea Nitrogen 10 mg/dL (7-18); Bicarbonate 30 mEq/L (21-32); Bilirubin Direct 0.2 mg/dL (0-0.2); Bilirubin Indirect, Calculated 0.6 mg/dL (0.2-0.8); Bilirubin Total 0.8 mg/dL (0.2-1.0); Globulin 3.9 g/dL (2.3-3.5); Glomerular Filtration Rate 104 ml/min (=/>90); Glucose Level 122 mg/dL (74-106); Potassium 3.6 mEq/L (3.5-5.1); Protein, Total 7.7 g/dL (6.4-8.2); Sodium Level 140 mEq/L (136-145)
[2024-09-05 12:54] LABS: Troponin High Sensitivity < 3.0 pg/mL (<58.9)
[2024-09-05] MEDS ORDERED: Magnesium Sulfate 2gm IVPB 2 G/50 ML BAG IV ONE (14:17)
[2024-09-05] MEDS ORDERED: droPERidol 5 MG/2 ML VIAL ONE (14:17)
[2024-09-05] MEDS ORDERED: KETOROLAC 30 MG/ML INJ ONE (14:17)
--- NOTE | 2024-09-05 15:01 | EDPHYS ---
Physician Documentation [facility] Name: Marya Dodson Age: 54 yrs Sex: Female : 1970 Arrival Date: 09/05/2024 Time: 10:34 Bed 24 Private MD: ED Physician Sundar Bobby HPI: 09/05 12:19 This 54 yrs old Black Female presents to ER via Ambulatory with complaints of Dizziness rt - Lightheaded. 12:19 Patient presents to the ED with headaches, dizziness reported as lightheadedness for rt the past month, been worsening with a past few days. Was seen at an urgent care today, told to come to the ED for further evaluation. Denies other acute complaints at this time, symptoms are moderate in severity, no other aggravating or alleviating factors.. Historical: - Allergies: 11:07 No Known Allergies; ap3 - Home Meds: 11:07 lisinopril Oral [Active]; ap3 - PMHx: 11:07 GERD; Hypertension; ap3 - PSHx: 11:07 hysterectomy; ap3 - Immunization history:: Client reports receiving the 2nd dose of the Covid vaccine, Flu vaccine is not up to date. - Infectious Disease History:: Denies. - Social history:: Smoking status: Patient denies any tobacco usage or history of. - Family history:: not pertinent. ROS: 12:19 Constitutional: Negative for fever, chills, and weight loss, Cardiovascular: Negative rt for chest pain, palpitations, and edema, Respiratory: Negative for shortness of breath, cough, wheezing, and pleuritic chest pain, Abdomen/GI: Negative for abdominal pain, nausea, vomiting, diarrhea, and constipation, MS/Extremity: Negative for injury and deformity, Skin: Negative for injury, rash, and discoloration, 12:19 Neuro: Positive for dizziness, headache, Exam: 12:19 Constitutional: This is a well developed, well nourished patient who is awake, alert, rt and in no acute distress. Head/Face: Normocephalic, atraumatic. Chest/axilla: Normal chest wall appearance and motion. Nontender with no deformity. No lesions are appreciated. Cardiovascular: Regular rate and rhythm with a normal S1 and S2. No gallops, murmurs, or rubs. Normal PMI, no JVD. No pulse deficits. Respiratory: Lungs have equal breath sounds bilaterally, clear to auscultation and percussion. No rales, rhonchi or wheezes noted. No increased work of breathing, no retractions or nasal flaring. Abdomen/GI: Soft, non-tender, with normal bowel sounds. No distension or tympany. No guarding or rebound. No evidence of tenderness throughout. Skin: Warm, dry with normal turgor. Normal color with no rashes, no lesions, and no evidence of cellulitis. MS/ Extremity: Pulses equal, no cyanosis. Neurovascular intact. Full, normal range of motion. 12:19 ECG was reviewed by the Attending Physician. 12:19 Neuro: Current nerves II through XII intact, speech normal, strength and sensation intact in upper and lower extremities, no aphasia, dysarthria, Vital Signs: 11:04 BP 162 / 119; Pulse 71; Resp 18; Temp 97.7; Pulse Ox 98% on R/A; Weight 70.31 kg; ap3 Height 5 ft. 6 in. ; Pain 10/10; 12:39 BP 179 / 99; Pulse 68; Resp 16; Pulse Ox 96% on R/A; jb4 14:15 BP 151 / 104; Pulse 66; Resp 16; Pulse Ox 97% on R/A; jb4 15:45 BP 134 / 89; Pulse 73; Resp 16; Pulse Ox 98% on R/A; jb4 11:04 Body Mass Index 25.02 (70.31 kg, 167.64 cm) ap3 11:04 Pain Scale: Adult ap3 MDM: 11:02 Medical Screening Exam initiated rt 17:05 Differential diagnosis: Hypertension, migraine, benign headache, intracranial rt hemorrhage. Data reviewed: vital signs, nurses notes, lab test result(s), EKG, radiologic studies. I considered the following discharge prescriptions or medication management in the emergency department Medications were administered in the Emergency Department. See MAR. Independent interpretation of the following test(s) in the Emergency Department CT Scan: My interpretation is No intracranial hemorrhage seen on interpretation of CT scan images. Care significantly affected by the following chronic conditions: Hypertension. Counseling: I had a detailed discussion with the patient and/or guardian regarding the historical points, exam findings, and any diagnostic results supporting the discharge/admit diagnosis, lab results, radiology results, the need for outpatient follow up, to return to the emergency department if symptoms worsen or persist or if there are any questions or concerns that arise at home. Response to treatment: the patient's symptoms have markedly improved after treatment. 09/05 11:08 Order name: Basic Metabolic Panel; Complete Time: 13:06 rt 09/05 11:08 Order name: CBC with Diff; Complete Time: 13:06 rt 09/05 11:08 Order name: LFT's; Complete Time: 13:06 rt 09/05 11:08 Order name: Troponin HS; Complete Time: 13:06 rt 09/05 11:08 Order name: CT Head Brain wo Cont; Complete Time: 12:06 rt 09/05 11:22 Order name: CT Chest Wo Con; Complete Time: 12:06 rt 09/05 11:08 Order name: Cardiac monitoring; Complete Time: 12:16 rt 09/05 11:08 Order name: EKG - Nurse/Tech; Complete Time: 12:16 rt 09/05 11:08 Order name: IV Saline Lock; Complete Time: 12:24 rt 09/05 11:08 Order name: Labs collected and sent; Complete Time: 12:24 rt 09/05 11:08 Order name: O2 Per Protocol; Complete Time: 12:05 rt 09/05 11:08 Order name: O2 Sat Monitoring; Complete Time: 12:05 rt EC:19 Rate is 66 beats/min. Rhythm is regular, Normal Sinus Rhythm with No ectopy. QRS [place] rt is Normal. HI interval is normal. QRS interval is normal. QT interval is normal. No Q waves. T waves are Normal. No ST changes noted. Interpreted by me. Administered Medications: 12:37 Drug: metoCLOPramide IVP 10 mg IVP once; over 1 to 2 minutes Route: IVP; Site: right jb4 antecubital; 13:46 Follow up: Response: No adverse reaction; No change in condition jb4 12:37 Drug: diphenhydrAMINE IVP 25 mg IVP once Route: IVP; Site: right antecubital; jb4 13:46 Follow up: Response: No adverse reaction; No change in condition jb4 12:37 Drug: Acetaminophen PO 1000 mg PO once Route: PO; jb4 13:46 Follow up: Response: No adverse reaction; No change in condition jb4 12:37 Drug: NS 0.9% IV 1000 ml IV at 1000 ml once; to be given as a bolus over 60 minutes jb4 Route: IV; Rate: 1000 ml; Site: right antecubital; 13:37 Follow up: Response: No adverse reaction; IV Status: Completed infusion; IV Intake: jb4 1000ml 14:29 Drug: Droperidol IVP 1.25 mg IVP once Route: IVP; Site: right antecubital; jb4 16:15 Follow up: Response: No adverse reaction; Marked relief of symptoms; Pain is decreased jb4 14:29 Drug: Magnesium Sulfate IVPB 2 grams IVPB once over 2 hrs Route: IVPB; Infused Over: 2 jb4 hrs; Site: right antecubital; 16:15 Follow up: Response: No adverse reaction; Marked relief of symptoms; Pain is decreased; jb4 IV Status: Completed infusion; IV Intake: 50ml 14:29 Drug: Ketorolac IVP 15 mg IVP once Route: IVP; Site: right antecubital; jb4 16:15 Follow up: Response: No adverse reaction; Marked relief of symptoms; Pain is decreased jb4 Disposition Summary: 09/05/24 15:00 Discharge Ordered Notes: Location: Home rt Condition: Stable rt Diagnosis - Headache rt Followup: rt - With: Sinan Graf DO - When: 2 - 3 days - Reason: Followup: rt - With: Damion Eugene MD - When: 2 - 3 days - Reason: Discharge Instructions: - Discharge Summary Sheet rt - General Headache Without Cause rt Forms: - Work release form jb4 - Medication Reconciliation Form rt - Antibiotic Education rt - Prescription Opioid Use rt - Patient Portal Instructions rt - Leadership Thank You Letter rt Prescriptions: - sumatriptan 10 mg/actuation Nasal spray, non-aerosol - spray 1 spray INTRANASAL route every 8 hours administer into one nostril as a rt single dose as needed; 12 Each; Refills: 0, Product Selection Permitted - Reglan 10 mg Oral tablet - take 1 tablet ORAL route every 6 hours; 20 tablet; Refills: 0, Product rt Selection Permitted Signatures: Dispatcher [employer] Jorgito Duong RN RN jb4 Renata Evans RN RN ap3 Sundar Bobby MD MD rt Corrections: (The following items were deleted from the chart) 11:09 11:09 Head Brain Wo [id number].RAD.BRZ ordered. EDMS EDMS
--- NOTE | 2024-09-05 15:01 | ER ---
Nurse's Notes [facility] Name: Marya Dodson Age: 54 yrs Sex: Female : 1970 Arrival Date: 09/05/2024 Time: 10:34 Bed 24 Private MD: Diagnosis: Headache Presentation: 09/05 11:04 Chief complaint: Patient states: she is having a headache, on both sides of her head. ap3 patient reports dizziness with the headaches. patient states these symptoms began approx one month ago. Coronavirus screen: At this time, the client does not indicate any symptoms associated with coronavirus-19. Ebola Screen: No symptoms or risks identified at this time. Initial Sepsis Screen:. Initial Sepsis Screen: Does the patient meet any 2 criteria? No. Patient's initial sepsis screen is negative. Does the patient have a suspected source of infection? No. Patient's initial sepsis screen is negative. Risk Assessment: Do you want to hurt yourself or someone else? Patient reports no desire to harm self or others. Onset of symptoms is unknown. 11:04 Method Of Arrival: Ambulatory ap3 11:04 Acuity: FELI 2 ap3 Triage Assessment: 11:08 General: Appears in no apparent distress. Behavior is calm, cooperative, appropriate ap3 for age. Pain: Complains of pain in head Pain currently is 10 out of 10 on a pain scale. Pain began approx one month ago. Neuro: Level of Consciousness is awake, alert, obeys commands, Oriented to person, place, time, situation. Neuro: Reports dizziness, since one month ago headache. Cardiovascular: Patient's skin is warm and dry. Respiratory: Airway is patent Respiratory effort is even, unlabored, Respiratory pattern is regular, symmetrical. Historical: - Allergies: 11:07 No Known Allergies; ap3 - Home Meds: 11:07 lisinopril Oral [Active]; ap3 - PMHx: 11:07 GERD; Hypertension; ap3 - PSHx: 11:07 hysterectomy; ap3 - Immunization history:: Client reports receiving the 2nd dose of the Covid vaccine, Flu vaccine is not up to date. - Infectious Disease History:: Denies. - Social history:: Smoking status: Patient denies any tobacco usage or history of. - Family history:: not pertinent. Screenin:09 Abuse screen: Denies threats or abuse. Nutritional screening: No deficits noted. ap3 Tuberculosis screening: No symptoms or risk factors identified. 12:37 [facility] ED Fall Risk Assessment (Adult) History of falling in the last 3 months, jb4 including since admission No falls in past 3 months (0 pts) Confusion or Disorientation No (0 pts) Intoxicated or Sedated No (0 pts) Impaired Gait No (0 pts) Mobility Assist Device Used No (0 pt) Altered Elimination No (0 pt) Score/Fall Risk Level 0 - 2 = Low Risk Oriented to surroundings, Maintained a safe environment. Assessment: 12:37 General: Appears in no apparent distress. uncomfortable, Behavior is calm, cooperative, jb4 appropriate for age. Pain: Complains of pain in head Pain does not radiate. Pain currently is 10 out of 10 on a pain scale. Neuro: Level of Consciousness is awake, alert, obeys commands, Oriented to person, place, time, situation, Reports headache. Cardiovascular: Patient's skin is warm and dry. Respiratory: Airway is patent Respiratory effort is even, unlabored, Respiratory pattern is regular, symmetrical. Derm: Skin is intact, Skin is dry, Skin is normal, Skin temperature is warm. Musculoskeletal: Circulation, motion, and sensation intact. Range of motion: intact in all extremities. 14:00 Reassessment: Patient appears in no apparent distress at this time. Patient and/or jb4 family updated on plan of care and expected duration. Pain level reassessed. Patient is alert, oriented x 3, equal unlabored respirations, skin warm/dry/pink. 15:00 Reassessment: Patient appears in no apparent distress at this time. Patient and/or jb4 family updated on plan of care and expected duration. Pain level reassessed. Patient is alert, oriented x 3, equal unlabored respirations, skin warm/dry/pink. 16:10 Reassessment: Patient appears in no apparent distress at this time. Patient and/or jb4 family updated on plan of care and expected duration. Pain level reassessed. Patient is alert, oriented x 3, equal unlabored respirations, skin warm/dry/pink. IV fluids complete, pt discharged. Vital Signs: 11:04 BP 162 / 119; Pulse 71; Resp 18; Temp 97.7; Pulse Ox 98% on R/A; Weight 70.31 kg; ap3 Height 5 ft. 6 in. ; Pain 10/10; 12:39 BP 179 / 99; Pulse 68; Resp 16; Pulse Ox 96% on R/A; jb4 14:15 BP 151 / 104; Pulse 66; Resp 16; Pulse Ox 97% on R/A; jb4 15:45 BP 134 / 89; Pulse 73; Resp 16; Pulse Ox 98% on R/A; jb4 11:04 Body Mass Index 25.02 (70.31 kg, 167.64 cm) ap3 11:04 Pain Scale: Adult ap3 ED Course: 10:37 Patient arrived in ED. ra3 11:02 Sundar Bobby MD is Attending Physician. rt 11:07 Triage completed. ap3 11:09 Arm band placed on right wrist. ap3 11:31 CT Head Brain wo Cont In Process Unspecified. EDMS 11:32 CT Chest Wo Con In Process Unspecified. EDMS 12:16 Jorgito Thomas, RN is Primary Nurse. jb4 12:24 Basic Metabolic Panel Sent. jb4 12:24 CBC with Diff Sent. jb4 12:24 LFT's Sent. jb4 12:24 Troponin HS Sent. jb4 12:37 Patient has correct armband on for positive identification. Placed in gown. Bed in low jb4 position. Call light in reach. Side rails up X 1. Provided Education on: plan of care. 14:15 No provider procedures requiring assistance completed. IV discontinued, intact, jb4 bleeding controlled, No redness/swelling at site. Pressure dressing applied. 15:00 Sinan Graf DO is Referral Physician. rt 15:00 Damion Eugene MD is Referral Physician. rt Administered Medications: 12:37 Drug: metoCLOPramide IVP 10 mg IVP once; over 1 to 2 minutes Route: IVP; Site: right jb4 antecubital; 13:46 Follow up: Response: No adverse reaction; No change in condition jb4 12:37 Drug: diphenhydrAMINE IVP 25 mg IVP once Route: IVP; Site: right antecubital; jb4 13:46 Follow up: Response: No adverse reaction; No change in condition jb4 12:37 Drug: Acetaminophen PO 1000 mg PO once Route: PO; jb4 13:46 Follow up: Response: No adverse reaction; No change in condition jb4 12:37 Drug: NS 0.9% IV 1000 ml IV at 1000 ml once; to be given as a bolus over 60 minutes jb4 Route: IV; Rate: 1000 ml; Site: right antecubital; 13:37 Follow up: Response: No adverse reaction; IV Status: Completed infusion; IV Intake: jb4 1000ml 14:29 Drug: Droperidol IVP 1.25 mg IVP once Route: IVP; Site: right antecubital; jb4 16:15 Follow up: Response: No adverse reaction; Marked relief of symptoms; Pain is decreased jb4 14:29 Drug: Magnesium Sulfate IVPB 2 grams IVPB once over 2 hrs Route: IVPB; Infused Over: 2 jb4 hrs; Site: right antecubital; 16:15 Follow up: Response: No adverse reaction; Marked relief of symptoms; Pain is decreased; jb4 IV Status: Completed infusion; IV Intake: 50ml 14:29 Drug: Ketorolac IVP 15 mg IVP once Route: IVP; Site: right antecubital; jb4 16:15 Follow up: Response: No adverse reaction; Marked relief of symptoms; Pain is decreased jb4 Medication: 12:37 VIS not applicable for this client. jb4 Intake: 13:37 IV: 1000ml; Total: 1000ml. jb4 16:15 IV: 50ml; Total: 1050ml. jb4 Outcome: 15:00 Discharge ordered by . rt 16:09 Discharged to home ambulatory, jb4 16:09 Condition: stable 16:09 Discharge instructions given to patient, Instructed on discharge instructions, follow up and referral plans. medication usage, Demonstrated understanding of instructions, follow-up care, medications, Prescriptions given X 2, 16:15 Patient left the ED. jb4 Signatures: Dispatcher [employer] EDMS Jorgito Thomas RN RN jb4 Prokisch, Amanda, RN RN ap3 Sundar Bobby MD MD rt Alva, Ruby ra3
[2024-09-05 16:20] VITALS: TEMP 97.7
[2024-09-05 16:24] VITALS: BP 134/89; O2SAT 98
== END 2024-09-05 16:15 | disposition home or self-care (01) ==
LOC: ER 10:34
DX: R51.9 Headache, unspecified (principal); R42 Dizziness and giddiness; I10 Essential (primary) hypertension
CPT/HCPCS: 96365; 96361; 85025; 80048; 36415; 80076; 84484; 70450; 71250; 96375; 99284; 96366; J3475; J2765; J1200; J1790; J7030